=== PATIENT | male | born 1990 | race Caucasian/White ===

== ENCOUNTER 2016-06-19 08:34 | Day surgery (SDC) | payer SELFPAY ==
[~2016-06-19] VITALS: Ht 193 cm; Wt 83.2 kg
[~2016-06-19 08:34] MED LIST: BACT800T5 PO; VENTAER INH
[2016-06-19 08:54] VITALS: BP 126/56; PULSE 60; RESP 20; TEMP 97.5; O2SAT 90
[2016-06-19 09:26] LABS: AUTOMATED NEUTROPHIL # 2.4 TH/MM3 (1.8-7.7); BASOPHIL % 0.7 % (0.0-2.0); EOSINOPHIL # 0.2 TH/MM3 (0-0.4); EOSINOPHIL % 3.5 % (0.0-4.0); HEMATOCRIT 41.9 % (39.0-51.0); HEMO FLAGS DIFF FINAL; LYMPH % 29.8 % (9.0-44.0); LYMPHOCYTE # 1.3 TH/MM3 (1.0-4.8); MEAN CELL VOLUME 89.9 FL (80.0-100.0); MEAN CORPUSCULAR HEMOGLOBIN 31.4 PG (27.0-34.0); MEAN CORPUSCULAR HGB CONC 34.9 % (32.0-36.0); MONO % 11.2 % (0.0-8.0); NEUT % 54.8 % (16.0-70.0); PLATELET COUNT 134 TH/MM3 (150-450); RED BLOOD COUNT 4.66 MIL/MM3 (4.50-5.90); RED CELL DISTRIBUTION WIDTH 13.8 % (11.6-17.2); WHITE BLOOD COUNT 4.3 TH/MM3 (4.0-11.0)
[2016-06-19] MEDS ORDERED: fentaNYL CITRATE 250 MCG/5 ML AMP ONE (09:56)
[2016-06-19] MEDS ORDERED: SODIUM CHLORIDE 0.9% 1000 ML IV SCH (10:00)
--- NOTE | 2016-06-19 10:52 | PD.RAD ---
Post Procedure Progress Note Pre Procedure Diagnosis: (1) Post trauma IVC filter Post Procedure Diagnosis: (1) Post trauma IVC filter Procedure Date: Jun 19, 2016 Supervising Radiologist: Nabor To Proceduralist/Assist: Mckenna Guadalupe, RT(R)(CV), Haylee Palomo RT(R)() Anesthesia: Local, Analgesia Plan of Activity Patient to Unit: ROPU Patient Condition: Good See PACS Report for procedural detail/treatment Vascular-Venous Procedure Procedure 1 Procedure Site: Abdominal Procedure(s): Foreign Body Retrieval, Retrievable IVC Filter Access Access Site(s): Right Jugular Vein Closure Site(s): Right manual pressure Findings: Retrievable IVC filter in place Treament Area: Filter removed. Nabor To MD Jun 19, 2016 10:52
[2016-06-19 10:55] VITALS: BP 151/81; PULSE 56; RESP 20; TEMP 97.7; O2SAT 99
[2016-06-19] MEDS ORDERED: IOHEXOL 350 MG/ML 50 ML BTL (for RAD DIAG) IV ONE (10:55)
[2016-06-19 11:10] VITALS: BP 130/83; PULSE 56; RESP 18; O2SAT 96
[2016-06-19 11:40] VITALS: BP 124/64; PULSE 59; RESP 18; O2SAT 96
[2016-06-19 12:10] VITALS: BP 125/69; PULSE 50; RESP 18; O2SAT 98
[2016-06-19 12:40] VITALS: BP 126/65; PULSE 62; RESP 18; O2SAT 98
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
== END 2016-06-19 13:00 | disposition home or self-care (01) ==
LOC: HROP 08:34 → HRIP 08:35 → HROP 13:00
PROVIDERS: ATTEND Surgery Trauma Surgery
DX: Z45.2 Encounter for adjustment and management of vascular access device (principal); L03.115 Cellulitis of right lower limb; F12.10 Cannabis abuse, uncomplicated
CPT/HCPCS: 37193; 85025; 85610; 85730; C1769; C1773; C1887; J3010; J7030; Q9967

== ENCOUNTER 2016-07-27 13:51 | Emergency (ER) | payer SELFPAY ==
[~2016-07-27] VITALS: Ht 193 cm; Wt 83.0 kg
[2016-07-27 13:52] VITALS: BP 133/78; PULSE 80; RESP 20; TEMP 97.7; O2SAT 97
== END 2016-07-27 18:45 | disposition left against medical advice (07) ==
LOC: NED 13:51
DX: R68.89 Other general symptoms and signs (principal)
CPT/HCPCS: 99281

== ENCOUNTER 2016-12-08 12:07 | Emergency (ER) | payer BC ==
[2016-12-08 12:17] VITALS: BP 142/88; PULSE 84; RESP 16; TEMP 98.4; O2SAT 98
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
== END 2016-12-08 15:32 | disposition home or self-care (01) ==
LOC: NEPK 12:07
DX: M25.551 Pain in right hip (principal); M79.671 Pain in right foot; M21.371 Foot drop, right foot; F90.9 Attention-deficit hyperactivity disorder, unspecified type; F17.200 Nicotine dependence, unspecified, uncomplicated
CPT/HCPCS: 73502; 73630; 99284

== ENCOUNTER 2017-02-18 13:45 | Inpatient (IN) | payer BC, OTHER ==
[~2017-02-18] VITALS: Ht 193 cm; Wt 75.0 kg
[~2017-02-18 13:45] MED LIST changes: -BACT800T5 PO; +METOPROLOL TARTRATE 5 MG/5 ML VIAL IV PUSH ONE; +NORMOSOL R INJ 3,000 ML IV ONE; +PHENYLEPH/NS 1000 MCG/10 ML SYR IV ONE; +PHENYLEPHRINE HCL 10 MG/ML VIAL IV ONE; +PROPOFOL 200 MG/20 ML AMP IV ONE; +ROCURONIUM INJ 50 MG/5 ML SYRINGE IV PUSH ONE; +SODIUM CHLORID 0.9% 500 ML INJ 500 ML IV ONE; +SODIUM CHLORIDE 0.9% 20 ML VIAL IV ONE; +SUCCINYLCHOLINE CHLORIDE 100 MG/5 ML SYRINGE IV PUSH ONE; -VENTAER INH; +ceFAZolin INJ 1,000 MG VIAL IV ONE; +ePHEDrine/NS 25 MG/5 ML SYR IM ONE; +ePHEDrine/NS 25 MG/5 ML SYR IV ONE
[2017-02-18] MEDS ORDERED: DIPHTH/TETANUS/ACEL PERTUSSIS (BOOSTER) 0.5 ML VIAL/PFS IM ONE (13:49)
[2017-02-18] MEDS ORDERED: ceFAZolin 2 GM PREMIX 50 ML ONE (13:49)
[2017-02-18] MEDS ORDERED: ONDANSETRON HCL 4 MG/2 ML VIAL ONE (13:54)
[2017-02-18] MEDS ORDERED: HYDROmorphone HCL PF 1 MG/ML VIAL ONE ×2 (13:54→14:02)
[2017-02-18 14:25] LABS: I-STAT POTASSIUM 3.1 MMOL/L (3.5-4.9); I-STAT SODIUM 145 MMOL/L (138-146)
[2017-02-18 14:27] LABS: AUTOMATED NEUTROPHIL # 14.7 TH/MM3 (1.8-7.7); BASOPHIL # 0.1 TH/MM3 (0-0.2); BASOPHIL % 0.3 % (0.0-2.0); EOSINOPHIL # 0.2 TH/MM3 (0-0.4); EOSINOPHIL % 0.9 % (0.0-4.0); HEMATOCRIT 38.9 % (39.0-51.0); HEMO FLAGS DIFF FINAL; LYMPH % 18.7 % (9.0-44.0); LYMPHOCYTE # 3.7 TH/MM3 (1.0-4.8); MEAN CELL VOLUME 93.4 FL (80.0-100.0); MEAN CORPUSCULAR HEMOGLOBIN 31.5 PG (27.0-34.0); MEAN CORPUSCULAR HGB CONC 33.7 % (32.0-36.0); MONO % 4.9 % (0.0-8.0); NEUT % 75.2 % (16.0-70.0); PLATELET COUNT 196 TH/MM3 (150-450); RED BLOOD COUNT 4.16 MIL/MM3 (4.50-5.90); RED CELL DISTRIBUTION WIDTH 13.1 % (11.6-17.2); WHITE BLOOD COUNT 19.5 TH/MM3 (4.0-11.0)
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
[2017-02-18 14:35] LABS: APTT (PATIENT) 23.8 SEC (24.3-30.1); PROTHROMBIN TIME - PATIENT 11.3 SEC (9.8-11.6)
[2017-02-18] MEDS ORDERED: GENTAMICIN 80 MG PREMIX 100 ML ONE (14:35)
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
[2017-02-18 14:53] LABS: ALCOHOL LESS THAN 3 MG/DL (0-5)
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
[2017-02-18] MEDS ORDERED: DIATRIZOATE MEG 30% 300 ML BOTTLE (for RAD DIAG) URETHRAL ONE (15:22)
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
[2017-02-18] MEDS ORDERED: IOHEXOL 350 MG/ML 10 ML VIAL (for RAD DIAG) IVCONTRAST ONE (15:54)
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
[2017-02-18] MEDS ORDERED: VANCOMYCIN HCL 1000 MG VIAL IV ONE (16:18)
[2017-02-18 16:37] LABS: BLOOD GAS BASE EXCESS -4.9 mmol/L (-2-2); BLOOD GAS CARBOXYHEMOGLOBIN 1.1 % (0-4); BLOOD GAS HCO3 21 mmol/L (22-26); BLOOD GAS METHEMOGLOBIN 1.4 % (0-2); BLOOD GAS O2 HGB SATURATION 97 % (90-100); BLOOD GAS OXYGEN CONTENT 15.3 Vol % (12.0-20.0); BLOOD GAS PCO2 44 mmHg (38-42); BLOOD GAS PO2 259 mmHg (61-120); BLOOD GAS TOTAL HGB 10.8 G/DL (12.0-16.0); CRITICAL VALUE YES; DRAW SITE ART LINE; FIO2 50 %; OXYGEN DEVICE VENTILATOR; STAT YES; TEMP CORR TO 98.6; VENT SETTINGS PCVG/VT550/R12/P5
[2017-02-18] MEDS ORDERED: VANCOMYCIN 1,000 MG/NS 250 ML IV ONE ×2 (17:00)
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
[2017-02-18] MEDS ORDERED: fentaNYL DRIP 250 ML IV PRN (17:45)
[2017-02-18] MEDS ORDERED: GENTAMICIN SULFATE 80 MG/2 ML VIAL ONE (17:51)
[2017-02-18 18:00] LABS: BLOOD GAS BASE EXCESS -3.7 mmol/L (-2-2); BLOOD GAS CARBOXYHEMOGLOBIN 1.5 % (0-4); BLOOD GAS HCO3 22 mmol/L (22-26); BLOOD GAS METHEMOGLOBIN 1.3 % (0-2); BLOOD GAS O2 HGB SATURATION 97 % (90-100); BLOOD GAS OXYGEN CONTENT 14.5 Vol % (12.0-20.0); BLOOD GAS PCO2 44 mmHg (38-42); BLOOD GAS PO2 258 mmHg (61-120); BLOOD GAS TOTAL HGB 10.2 G/DL (12.0-16.0); CRITICAL VALUE NO; FIO2 50 %; OXYGEN DEVICE VENTILATOR; TEMP CORR TO 98.6; VENT SETTINGS PCVG/VT550/R12/P5
[2017-02-18 18:01] LABS: DRAW SITE ART LINE; STAT YES
[2017-02-18] MEDS ORDERED: SODIUM CHLOR 0.9% 1000 ML INJ 1,000 ML IV SCH (18:30)
[2017-02-18] MEDS ORDERED: SODIUM PHOSPHATE INJ 30 MMOL in SODIUM CHLOR 0.9% 250 ML INJ 240 ML IV PRN (18:30)
[2017-02-18] MEDS ORDERED: POTASSIUM PHOSPHATE MONOBASIC 500 MG TAB PO/TUBE PRN (18:30)
[2017-02-18] MEDS ORDERED: POTASSIUM PHOSPHATE INJ 30 MMOL in SODIUM CHLOR 0.9% 250 ML INJ 250 ML IV PRN (18:30)
[2017-02-18] MEDS ORDERED: MAGNESIUM SULFATE INJ 2 GM in SODIUM CHLORIDE 0.9% INJ 96 ML IV PRN (18:30)
[2017-02-18] MEDS ORDERED: SODIUM CHLORIDE 0.9% FLUSH 10 ML FLUSH IV FLUSH PRN ×2 (18:30→21:30)
[2017-02-18] MEDS ORDERED: MAGNESIUM OXIDE 400 MG TAB PO PRN (18:30)
[2017-02-18] MEDS ORDERED: MISCELLANEOUS NURSING INFORMATION XX SCH (18:30)
[2017-02-18] MEDS ORDERED: CHLORHEXIDINE GLUCONATE 2 % 1 PACK (2 CLOTHS) TOP PRN (18:30)
[2017-02-18] MEDS ORDERED: POTASSIUM CHLORIDE 25 MEQ EFFERVESCENT TAB PO PRN (18:30)
[2017-02-18] MEDS ORDERED: BISACODYL 10 MG SUPP RECTAL PRN ×2 (18:30→21:30)
[2017-02-18] MEDS ORDERED: ACETAMINOPHEN 325 MG TAB PO PRN (18:30)
[2017-02-18] MEDS ORDERED: POTASSIUM PHOSPHATE MONOBASIC 500 MG TAB PO PRN (18:30)
[2017-02-18] MEDS ORDERED: POTASSIUM CHLOR 20 MEQ PREMIX 100 ML IV PRN ×2 (18:30)
[2017-02-18] MEDS ORDERED: ENALAPRILAT 1.25 MG/ML VIAL IV PUSH PRN (18:30)
[2017-02-18] MEDS ORDERED: MAGNESIUM SULFATE INJ 4 GM in SODIUM CHLORIDE 0.9% INJ 92 ML IV PRN (18:30)
[2017-02-18] MEDS ORDERED: POTASSIUM CHLOR 40 MEQ PREMIX 100 ML IV PRN ×2 (18:30)
[2017-02-18] MEDS ORDERED: CHLORHEXIDINE 0.12% (ORAL KIT) 15 ML CUP MT SCH (20:00)
[2017-02-18] MEDS ORDERED: fentaNYL CITRATE 1000 MCG/20 ML VIAL ONE (20:19)
[2017-02-18] MEDS ORDERED: VECURONIUM BROMIDE 20 MG VIAL ONE (20:28)
[2017-02-18 20:33] LABS: BLOOD GAS BASE EXCESS -6.2 mmol/L (-2-2); BLOOD GAS CARBOXYHEMOGLOBIN 1.2 % (0-4); BLOOD GAS HCO3 19 mmol/L (22-26); BLOOD GAS METHEMOGLOBIN 1.1 % (0-2); BLOOD GAS O2 HGB SATURATION 97 % (90-100); BLOOD GAS PCO2 41 mmHg (38-42); BLOOD GAS PO2 278 mmHg (61-120); BLOOD GAS TOTAL HGB 10.4 G/DL (12.0-16.0); TEMP CORR TO 98.6
[2017-02-18 20:34] LABS: CRITICAL VALUE YES; FIO2 100 %; OXYGEN DEVICE OR SETTING; VENT SETTINGS OR SETTING
[2017-02-18 20:35] LABS: DRAW SITE ART LINE; STAT YES
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
[2017-02-18] MEDS: BACITRACIN TOP OINT 15 GM TUBE TOP SCH (21:00)
[2017-02-18] MEDS ORDERED: DOCUSATE SODIUM 50 MG/SENNA 8.6 MG TAB PO SCH (21:00)
[2017-02-18] MEDS: FAMOTIDINE 20 MG/2 ML VIAL IV PUSH SCH (21:00)
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
[2017-02-18] MEDS ORDERED: LACTULOSE SYRUP 20 GM/30 ML CUP PO PRN (21:30)
[2017-02-18] MEDS ORDERED: Post-op Orders (for Pharmacy) MISC XX ONE (21:30)
[2017-02-18] MEDS ORDERED: SENNOSIDES 8.6 MG TAB PO PRN (21:30)
[2017-02-18] MEDS ORDERED: MAGNESIUM HYDROXIDE SUSP 30 ML CUP PO PRN (21:30)
[2017-02-18] MEDS ORDERED: POVIDONE IODINE 10% SOLN 118 ML BOTTLE TOPICAL PRN (21:30)
[2017-02-18 21:45] VITALS: BP 113/57; PULSE 130; RESP 18; TEMP 98.1; O2SAT 100
[2017-02-18 21:50] VITALS: O2SAT 100
[2017-02-18 22:00] VITALS: PULSE 108
[2017-02-18] MEDS: PROPOFOL 1000 MG/100 ML INJ 100 ML IV PRN (22:00)
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
[2017-02-18 22:39] LABS: BLOOD GAS BASE EXCESS -3.6 mmol/L (-2-2); BLOOD GAS CARBOXYHEMOGLOBIN 1.7 % (0-4); BLOOD GAS HCO3 21 mmol/L (22-26); BLOOD GAS METHEMOGLOBIN 0.8 % (0-2); BLOOD GAS O2 HGB SATURATION 98 % (90-100); BLOOD GAS OXYGEN CONTENT 11.5 Vol % (12.0-20.0); BLOOD GAS PCO2 40 mmHg (38-42); BLOOD GAS PO2 243 mmHg (61-120); BLOOD GAS TOTAL HGB 7.9 G/DL (12.0-16.0); CRITICAL VALUE NO; DRAW SITE ART LINE; FIO2 50 %; OXYGEN DEVICE VENTILATOR; STAT YES; TEMP CORR TO 98.6; VENT SETTINGS V/AC18/600/PEEP5
[2017-02-18] MEDS ORDERED: LACTATED RINGER'S 1000 ML INJ 1,000 ML IV ONE (22:45)
[2017-02-18 22:57] LABS: AUTOMATED NEUTROPHIL # 8.7 TH/MM3 (1.8-7.7); BASOPHIL % 0.2 % (0.0-2.0); HEMATOCRIT 24.8 % (39.0-51.0); LYMPH % 5.2 % (9.0-44.0); LYMPHOCYTE # 0.5 TH/MM3 (1.0-4.8); MEAN CELL VOLUME 87.5 FL (80.0-100.0); MEAN CORPUSCULAR HEMOGLOBIN 30.2 PG (27.0-34.0); MEAN CORPUSCULAR HGB CONC 34.5 % (32.0-36.0); MONO % 10.7 % (0.0-8.0); NEUT % 83.9 % (16.0-70.0); PLATELET COUNT 82 TH/MM3 (150-450); RED BLOOD COUNT 2.83 MIL/MM3 (4.50-5.90); RED CELL DISTRIBUTION WIDTH 15.5 % (11.6-17.2); WHITE BLOOD COUNT 10.3 TH/MM3 (4.0-11.0)
[2017-02-18 22:58] LABS: HEMO FLAGS AUTO DIFF
[2017-02-18] MEDS ORDERED: CALCIUM GLUCONATE INJ 2 GM in SODIUM CHLORIDE 0.9% INJ 100 ML IV ONE (23:00)
[2017-02-18] MEDS: ceFAZolin 2 GM PREMIX 50 ML IV SCH (23:05)
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
[2017-02-18] MEDS: GENTAMICIN 80 MG PREMIX 100 ML IV SCH (23:07)
--- NOTE | 2017-02-18 23:07 | RADRPT ---
EXAM DATE/TIME: 02/18/2017 22:38 [facility] COMPARISON: CHEST SINGLE AP, February 18, 2017, 13:46. INDICATIONS : Evaluate intubation MEDICAL HISTORY : None. SURGICAL HISTORY : None. ENCOUNTER: Subsequent ACUITY: 1 day PAIN SCORE: Non-responsive. LOCATION: chest FINDINGS: The cardiac silhouette is normal in transverse diameter. The lungs are free of acute parenchymal opac ity. No effusions are identified. Endotracheal tube is in good position above the germaine. A nasogastr ic tube is in place with its tip in the stomach. CONCLUSION: 1. Satisfactory position of endotracheal tube as above. Alejo Hooper MD on February 18, 2017 at 23:05 Board Certified Radiologist. This report was verified electronically.
[2017-02-18 23:22] LABS: BICARBONATE 23.7 MEQ/L (21.0-32.0); MAGNESIUM 1.8 MG/DL (1.5-2.5); POTASSIUM 4.2 MEQ/L (3.5-5.1)
[2017-02-18 23:29] LABS: BANDS 19 % (0-6); METAMYELOCYTES 2 % (0-1); NEUTROPHIL # MANUAL DIFF 8.7 TH/MM3 (1.8-7.7); POLYS (SEG NEUTROPHILS) 63 % (16-70); SCAN/DIFF FINAL DIFF MANUAL; WBC DIFF SAMPLE 100
[2017-02-18 23:30] LABS: PLATELET ESTIMATE SMEAR LOW (NORMAL); PLATELET MORPHOLOGY NORMAL (NORMAL)
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
--- NOTE | 2017-02-18 23:33 | RADRPT ---
EXAM DATE/TIME: 02/18/2017 23:10 [facility] COMPARISON: WRIST LEFT LIMITED (AP & LAT), February 18, 2017, 23:04. INDICATIONS : Evaluate for fracture post trauma[place] [place]ORY : Unobtainable SURGICAL HISTORY : Unobtainable ENCOUNTER: Initial ACUITY: 1 day PAIN SCORE: Non-responsive. LOCATION: Left Hand FINDINGS: There are fractures at the base of the third and fifth metacarpals. On the lateral view there is also a fracture through the carpus which may be through the hamate. CT scan is recommended for further ev aluation if clinically indicated. Fracture of the distal radius and ulnar styloid again identified CONCLUSION: 1. Fractures of the third and fifth metacarpals. 2. Carpal fracture best seen on the lateral view. CT scan is recommended for further evaluation if cl inically indicated. Alejo Hooper MD on February 18, 2017 at 23:29 Board Certified Radiologist. This report was verified electronically.
[2017-02-18 23:46] LABS: CALCIUM-PROTEIN CORRECTED 7.9 MG/DL (8.5-10.1)
[2017-02-18 23:57] VITALS: O2SAT 100
[2017-02-19] VITALS (22 sets, daily range): BP systolic 96–150; BP diastolic 50–82; PULSE 64–123; RESP 12–33; TEMP 97.4–99.5; O2SAT 96–100
[2017-02-19] MEDS: MIDAZOLAM HCL 2 MG/2 ML VIAL IV PUSH PRN ×2 (00:27→02:18)
[2017-02-19] MEDS: LACTATED RINGER'S 1000 ML INJ 1,000 ML IV SCH ×3 (00:31→16:12)
[2017-02-19] MEDS ORDERED: NOREPINEPHRINE-DEXTROSE DRIP 250 ML IV ONE (00:38)
[2017-02-19] MEDS ORDERED: PHENYLEPHRINE HCL 10 MG/ML VIAL ONE (01:35)
[2017-02-19] MEDS ORDERED: HYDROmorphone HCL PF 1 MG/ML VIAL IV PUSH PRN ×2 (01:45)
[2017-02-19] MEDS ORDERED: TERBUTALINE INJ 1 MG/ML AMP SQ PRN (01:45)
[2017-02-19 01:50] LABS: MAGNESIUM 1.8 MG/DL (1.5-2.5)
[2017-02-19] MEDS: PHENYLEPHRINE INJ 40 MG in DEXTROSE 5% IN WATE 500 ML INJ 496 ML IV PRN ×4 (03:02→07:40)
[2017-02-19] MEDS: RESP: ALBUTEROL 2.5 MG/IPRATROPIUM 0.5 MG NEB (SCH) NEB ×4 (03:22→21:32)
[2017-02-19] MEDS: CHLORHEXIDINE GLUCONATE 2 % 1 PACK (2 CLOTHS) TOP SCH ×2 (04:00→21:26)
--- NOTE | 2017-02-19 04:06 | RADRPT ---
EXAM DATE/TIME: 02/19/2017 03:14 [facility] COMPARISON: CHEST SINGLE AP, February 18, 2017, 22:38. INDICATIONS : Picc line placement. MEDICAL HISTORY : Unobtainable. SURGICAL HISTORY : Unobtainable. ENCOUNTER: Initial ACUITY: 1 day PAIN SCORE: Non-responsive. LOCATION: Bilateral chest FINDINGS: The cardiac silhouette is normal in transverse diameter. The lungs are free of acute parenchymal opac ity. No effusions are identified. A right sided internal jugular vein catheter is in place without pn eumothorax with its tip in the superior vena cava. CONCLUSION: 1. Uncomplicated line placement. No evidence of pneumothorax. Alejo Hooper MD on February 19, 2017 at 4:04 Board Certified Radiologist. This report was verified electronically.
[2017-02-19 04:07] LABS: BLOOD GAS BASE EXCESS -2.1 mmol/L (-2-2); BLOOD GAS CARBOXYHEMOGLOBIN 1.2 % (0-4); BLOOD GAS HCO3 23 mmol/L (22-26); BLOOD GAS METHEMOGLOBIN 0.7 % (0-2); BLOOD GAS O2 HGB SATURATION 98 % (90-100); BLOOD GAS OXYGEN CONTENT 12.2 Vol % (12.0-20.0); BLOOD GAS PCO2 49 mmHg (38-42); BLOOD GAS PO2 253 mmHg (61-120); BLOOD GAS TOTAL HGB 8.4 G/DL (12.0-16.0); CRITICAL VALUE NO; TEMP CORR TO 98.6
[2017-02-19 04:08] LABS: DRAW SITE ART LINE; FIO2 50 %; OXYGEN DEVICE VENTILATOR; STAT NO
[2017-02-19] MEDS: PROPOFOL 1000 MG/100 ML INJ 100 ML IV PRN (04:30)
[2017-02-19 04:44] LABS: AUTOMATED NEUTROPHIL # 9.2 TH/MM3 (1.8-7.7); BASOPHIL % 0.1 % (0.0-2.0); HEMATOCRIT 23.5 % (39.0-51.0); LYMPHOCYTE # 1.3 TH/MM3 (1.0-4.8); MEAN CELL VOLUME 86.9 FL (80.0-100.0); MEAN CORPUSCULAR HEMOGLOBIN 30.4 PG (27.0-34.0); MONO % 16.6 % (0.0-8.0); NEUT % 73.3 % (16.0-70.0); PLATELET COUNT 85 TH/MM3 (150-450); RED BLOOD COUNT 2.71 MIL/MM3 (4.50-5.90); RED CELL DISTRIBUTION WIDTH 15.5 % (11.6-17.2); WHITE BLOOD COUNT 12.5 TH/MM3 (4.0-11.0)
[2017-02-19 04:47] LABS: HEMO FLAGS AUTO DIFF
[2017-02-19 04:54] LABS: APTT (PATIENT) 35.5 SEC (24.3-30.1)
--- NOTE | 2017-02-19 04:55 | PD.PROCEDR ---
Procedure Note Procedure DATE: 02/19/17 CENTRAL LINE PLACEMENT: Right internal jugular vein. INDICATION: Central venous access CONSENT Informed consent for procedure was obtained from patient's father after discussion of risks, benefits, alternatives. DESCRIPTION OF THE PROCEDURE The patient was placed in supine position, mild Trendelenburg. The skin was cleansed with Chloraprep x3. Additional barrier precautions included large sterile drape, sterile gloves, sterile gown, face mask, and hat. 1 % lidocaine was used for local anesthesia. Initial attempt at R subclavian with u/s guidance unsuccessful. Under direct ultrasound guidance and on single attempt, the right IJ vein was accessed with an introducer needle. The guide wire was advanced and the tract was dilated. Using Seldinger technique a 7 Greenlandic 20 cm antimicrobial coated triple-lumen catheter was advanced to a depth of 18 centimeters. The guide wire was removed. All ports had good return of dark venous blood and flushed easily with saline. The central line was secured with Stat-lock. A sterile dressing with antibiotic disc was applied. ESTIMATED BLOOD LOSS: Minimal COMPLICATIONS: No apparent complications. STAT chest x-ray demonstrated satisfactory central venous line position without apparent complication Tanesha Lynch MD Feb 19, 2017 04:55
[2017-02-19 05:26] LABS: BICARBONATE 25.9 MEQ/L (21.0-32.0); POTASSIUM 4.6 MEQ/L (3.5-5.1)
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
[2017-02-19] MEDS: ceFAZolin 2 GM PREMIX 50 ML IV SCH ×3 (06:03→21:52)
[2017-02-19 06:19] LABS: BANDS 17 % (0-6); NEUTROPHIL # MANUAL DIFF 9.8 TH/MM3 (1.8-7.7); POLYS (SEG NEUTROPHILS) 61 % (16-70); WBC DIFF SAMPLE 100
[2017-02-19 06:20] LABS: PLATELET ESTIMATE SMEAR LOW (NORMAL); PLATELET MORPHOLOGY NORMAL (NORMAL); SCAN/DIFF FINAL DIFF MANUAL
[2017-02-19 06:24] LABS: OVALOCYTES 1+ (NORMAL)
[2017-02-19 07:04] LABS: CALCIUM-PROTEIN CORRECTED 8.4 MG/DL (8.5-10.1)
[2017-02-19] MEDS ORDERED: SODIUM CHLOR 0.9% 250 ML INJ 250 ML IV ONE ×2 (07:15→19:00)
[2017-02-19 07:38] LABS: BACTERIA, URINE RARE /hpf; BLOOD, URINE SMALL (NEG); COMMENT (UR) CATH-CULTURE IND; CULTURE IF INDICATED CATH CULTURE IND; GLUCOSE,URINE NEG (NEG); HYALINE CAST, URINE 1 /lpf (RARE); KETONE, URINE NEG (NEG); MUCUS URINE FEW /lpf (OCC); NITRITE,URINE NEG (NEG); PH, URINE 5.5 (5.0-8.5); SQUAMOUS EPITHELIAL CELL URINE <1 /hpf (0-5); URINE COLOR YELLOW (YELLW/STRAW)
[2017-02-19] MEDS: GENTAMICIN 80 MG PREMIX 100 ML IV SCH ×3 (07:39→23:57)
[2017-02-19] MEDS ORDERED: CHLORHEXIDINE 0.12% (ORAL KIT) 15 ML CUP MT SCH (08:00)
[2017-02-19] MEDS: FAMOTIDINE 20 MG/2 ML VIAL IV PUSH SCH ×2 (08:03→20:01)
[2017-02-19] MEDS: DOCUSATE SODIUM 50 MG/SENNA 8.6 MG TAB PO SCH ×2 (08:04→20:01)
[2017-02-19] MEDS: BACITRACIN TOP OINT 15 GM TUBE TOP SCH ×2 (08:04→20:01)
[2017-02-19] MEDS: MULTIVITAMINS/MINERALS THERAPEUTIC TAB PO SCH (08:04)
[2017-02-19] MEDS: SODIUM CHLORIDE 0.9% FLUSH 10 ML FLUSH IV FLUSH SCH ×2 (08:04→20:01)
--- NOTE | 2017-02-19 08:59 | RADRPT ---
EXAM DATE/TIME: 02/18/2017 18:33 [facility] COMPARISON: FEMUR RIGHT (1 VW), February 18, 2017, 13:46. INDICATIONS : Right femur open reduction internal fixation. MEDICAL HISTORY : Unobtainable. SURGICAL HISTORY : Unobtainable. ENCOUNTER: Initial ACUITY: 1 day PAIN SCORE: Non-responsive. LOCATION: Right femur. FINDINGS: 6 spot fluoroscopic images up in the operating room during a procedure documents placement of an ante grade intramedullary belinda with a proximal femoral head and neck screw and 2 distal interlocking screws . The hardware traverses the comminuted diaphyseal fracture. There is improved anatomic alignment. Henriquez rgical drain is present and skin jovan are in place. CONCLUSION: Improved alignment following right femur ORIF. Samuel Munoz MD on February 19, 2017 at 8:56 Board Certified Radiologist. This report was verified electronically.
--- NOTE | 2017-02-19 08:59 | RADRPT ---
EXAM DATE/TIME: 02/18/2017 18:33 [facility] COMPARISON: No previous studies available for comparison. INDICATIONS : Left elbow ex-fix. MEDICAL HISTORY : Unobtainable. SURGICAL HISTORY : Unobtainable. ENCOUNTER: Initial ACUITY: 1 day PAIN SCORE: Non-responsive. LOCATION: Left elbow FINDINGS: There is continued distraction across the medial condyle. Alignment about the olecranon is anatomic external fixator. CONCLUSION: Alignment as above. Yoel Harding MD FACR on February 19, 2017 at 8:54 Board Certified Radiologist. This report was verified electronically.
[2017-02-19] MEDS ORDERED: LACTULOSE SYRUP 20 GM/30 ML CUP PO SCH (09:00)
[2017-02-19] MEDS ORDERED: oxyCODONE/ACETAMINOPHEN 5 MG/325 MG TAB PO PRN (09:30)
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
[2017-02-19] MEDS: ENOXAPARIN SODIUM 30 MG/0.3 ML SYRINGE SQ SCH ×2 (12:25→23:57)
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
[2017-02-19] MEDS: oxyCODONE/ACETAMINOPHEN 10 MG/325 MG TAB PO PRN ×3 (15:33→23:58)
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
[2017-02-19] MEDS: MORPHINE SULFATE 4 MG/ML INJ IV PUSH PRN ×2 (17:12→21:53)
--- NOTE | 2017-02-19 17:20 | RADRPT ---
EXAM DATE/TIME: 02/19/2017 16:34 [facility] COMPARISON: No previous studies available for comparison. INDICATIONS : Trauma alert. MEDICAL HISTORY : None. SURGICAL HISTORY : None. ENCOUNTER: Subsequent ACUITY: 1 day PAIN SCORE: 4/10 LOCATION: Right Hand. FINDINGS: Three view examination of the right hand demonstrates no soft tissue swelling, dislocation, or fractu re. The carpal bones appear intact. The interphalangeal and metacarpophalangeal joints are intact. Bony mineralization is normal. CONCLUSION: Marked soft tissue swelling without fracture. Yoel Harding MD FACR on February 19, 2017 at 17:17 Board Certified Radiologist. This report was verified electronically.
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
[2017-02-19 18:39] LABS: MEAN CELL VOLUME 86.3 FL (80.0-100.0); MEAN CORPUSCULAR HEMOGLOBIN 30.6 PG (27.0-34.0); MEAN CORPUSCULAR HGB CONC 35.5 % (32.0-36.0); PLATELET COUNT 63 TH/MM3 (150-450); RED CELL DISTRIBUTION WIDTH 15.9 % (11.6-17.2); WHITE BLOOD COUNT 11.3 TH/MM3 (4.0-11.0)
[2017-02-19] MEDS: ONDANSETRON HCL 4 MG/2 ML VIAL IV PUSH PRN ×2 (18:41→21:53)
[2017-02-19 18:43] LABS: REVIEW FLAG FINAL
[2017-02-19 18:46] LABS: HEMATOCRIT 17.2 % (39.0-51.0)
[2017-02-20] VITALS (13 sets, daily range): BP systolic 116–149; BP diastolic 58–81; PULSE 85–103; RESP 17–30; TEMP 97.4–98.9; O2SAT 96–100
[2017-02-20] MEDS ORDERED: fentaNYL 50 MCG/HR PATCH T-DERMAL SCH
[2017-02-20] MEDS: LACTATED RINGER'S 1000 ML INJ 1,000 ML IV SCH (00:03)
[2017-02-20] MEDS: MORPHINE SULFATE 4 MG/ML INJ IV PUSH PRN ×7 (00:54→22:27)
[2017-02-20] MEDS: RESP: ALBUTEROL 2.5 MG/IPRATROPIUM 0.5 MG NEB (SCH) NEB ×4 (03:55→20:21)
[2017-02-20] MEDS: oxyCODONE/ACETAMINOPHEN 10 MG/325 MG TAB PO PRN ×4 (04:00→18:45)
[2017-02-20 04:54] LABS: BICARBONATE 26.7 MEQ/L (21.0-32.0)
[2017-02-20 04:59] LABS: AUTOMATED NEUTROPHIL # 6.7 TH/MM3 (1.8-7.7); BASOPHIL % 0.2 % (0.0-2.0); EOSINOPHIL # 0.1 TH/MM3 (0-0.4); EOSINOPHIL % 0.9 % (0.0-4.0); HEMATOCRIT 22.9 % (39.0-51.0); LYMPHOCYTE # 1.7 TH/MM3 (1.0-4.8); MEAN CELL VOLUME 86.7 FL (80.0-100.0); MEAN CORPUSCULAR HEMOGLOBIN 30.8 PG (27.0-34.0); MEAN CORPUSCULAR HGB CONC 35.5 % (32.0-36.0); MONO % 10.6 % (0.0-8.0); NEUT % 70.3 % (16.0-70.0); PLATELET COUNT 48 TH/MM3 (150-450); RED BLOOD COUNT 2.64 MIL/MM3 (4.50-5.90); RED CELL DISTRIBUTION WIDTH 14.6 % (11.6-17.2); WHITE BLOOD COUNT 9.6 TH/MM3 (4.0-11.0)
[2017-02-20 05:07] LABS: CALCIUM-PROTEIN CORRECTED 8.9 MG/DL (8.5-10.1)
[2017-02-20 05:22] LABS: INTERNATIONAL NORMALIZED RATIO 1.1 RATIO; PROTHROMBIN TIME - PATIENT 12.7 SEC (9.8-11.6)
[2017-02-20 05:33] LABS: HEMO FLAGS AUTO DIFF
[2017-02-20] MEDS: ceFAZolin 2 GM PREMIX 50 ML IV SCH ×2 (05:33→14:14)
[2017-02-20] MEDS: GENTAMICIN 80 MG PREMIX 100 ML IV SCH ×2 (05:34→14:14)
[2017-02-20] MEDS: FAMOTIDINE 20 MG/2 ML VIAL IV PUSH SCH (08:08)
[2017-02-20] MEDS: MULTIVITAMINS/MINERALS THERAPEUTIC TAB PO SCH (08:08)
[2017-02-20] MEDS: SODIUM CHLORIDE 0.9% FLUSH 10 ML FLUSH IV FLUSH SCH ×2 (08:09→19:39)
[2017-02-20] MEDS: DOCUSATE SODIUM 50 MG/SENNA 8.6 MG TAB PO SCH ×2 (08:21→19:40)
[2017-02-20 08:48] LABS: BANDS 9 % (0-6); EOSINOPHILS 1 % (0-4); POLYS (SEG NEUTROPHILS) 64 % (16-70); WBC DIFF SAMPLE 100
[2017-02-20 08:49] LABS: PLATELET ESTIMATE SMEAR LOW (NORMAL); PLATELET MORPHOLOGY NORMAL (NORMAL); SCAN/DIFF FINAL DIFF MANUAL
[2017-02-20] MEDS: BACITRACIN TOP OINT 15 GM TUBE TOP SCH ×2 (09:00→19:40)
[2017-02-20] MEDS ORDERED: oxyCODONE/ACETAMINOPHEN 5 MG/325 MG TAB PO PRN (10:15)
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
[2017-02-20] MEDS: KETOROLAC TROMETHAMINE 30 MG/ML (IVP) VIAL IV PUSH SCH ×2 (12:25→18:00)
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
[2017-02-20] MEDS: ONDANSETRON HCL 4 MG/2 ML VIAL IV PUSH PRN ×2 (16:24→23:10)
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
[2017-02-20] MEDS: FAMOTIDINE 20 MG TAB PO SCH (19:40)
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
[2017-02-21] VITALS (12 sets, daily range): BP systolic 107–136; BP diastolic 53–70; PULSE 92–108; RESP 17–18; TEMP 97–99; O2SAT 95–100
[2017-02-21] MEDS: ceFAZolin 2 GM PREMIX 50 ML IV SCH ×4 (00:27→21:49)
[2017-02-21] MEDS: oxyCODONE/ACETAMINOPHEN 10 MG/325 MG TAB PO PRN ×3 (00:27→08:45)
[2017-02-21] MEDS: KETOROLAC TROMETHAMINE 30 MG/ML (IVP) VIAL IV PUSH SCH ×2 (00:27→04:49)
[2017-02-21] MEDS: GENTAMICIN 80 MG PREMIX 100 ML IV SCH ×3 (00:27→15:00)
[2017-02-21] MEDS: MORPHINE SULFATE 4 MG/ML INJ IV PUSH PRN (01:55)
[2017-02-21] MEDS: diphenhydrAMINE HCL 25 MG CAP PO PRN ×2 (01:55→21:47)
[2017-02-21] MEDS: CHLORHEXIDINE GLUCONATE 2 % 1 PACK (2 CLOTHS) TOP SCH (02:08)
[2017-02-21] MEDS: RESP: ALBUTEROL 2.5 MG/IPRATROPIUM 0.5 MG NEB (SCH) NEB ×4 (03:09→21:07)
[2017-02-21 05:35] LABS: AUTOMATED NEUTROPHIL # 4.4 TH/MM3 (1.8-7.7); BASOPHIL % 0.2 % (0.0-2.0); EOSINOPHIL # 0.1 TH/MM3 (0-0.4); EOSINOPHIL % 1.2 % (0.0-4.0); LYMPH % 15.9 % (9.0-44.0); MEAN CELL VOLUME 86.9 FL (80.0-100.0); MEAN CORPUSCULAR HGB CONC 35.7 % (32.0-36.0); MONO % 10.1 % (0.0-8.0); NEUT % 72.6 % (16.0-70.0); PLATELET COUNT 54 TH/MM3 (150-450); RED BLOOD COUNT 2.11 MIL/MM3 (4.50-5.90); RED CELL DISTRIBUTION WIDTH 14.8 % (11.6-17.2); WHITE BLOOD COUNT 6.1 TH/MM3 (4.0-11.0)
[2017-02-21 05:41] LABS: HEMO FLAGS DIFF FINAL
[2017-02-21 05:42] LABS: HEMATOCRIT 18.3 % (39.0-51.0)
[2017-02-21 06:54] LABS: POTASSIUM 3.8 MEQ/L (3.5-5.1)
[2017-02-21] MEDS: FAMOTIDINE 20 MG TAB PO SCH ×2 (08:44→21:50)
[2017-02-21] MEDS: MAGNESIUM HYDROXIDE SUSP 30 ML CUP PO SCH ×2 (08:44→21:49)
[2017-02-21] MEDS: LACTULOSE SYRUP 20 GM/30 ML CUP PO SCH ×2 (08:44→09:00)
[2017-02-21] MEDS: DOCUSATE SODIUM 50 MG/SENNA 8.6 MG TAB PO SCH ×2 (08:44→21:50)
[2017-02-21] MEDS: MULTIVITAMINS/MINERALS THERAPEUTIC TAB PO SCH (08:44)
[2017-02-21] MEDS: SODIUM CHLORIDE 0.9% FLUSH 10 ML FLUSH IV FLUSH SCH ×2 (08:45→21:00)
[2017-02-21] MEDS: BACITRACIN TOP OINT 15 GM TUBE TOP SCH ×2 (09:00→21:00)
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
[2017-02-21] MEDS: ONDANSETRON HCL 4 MG/2 ML VIAL IV PUSH PRN ×2 (09:06→16:53)
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
[2017-02-21] MEDS: ACETAMINOPHEN 1000 MG/100 ML 100 ML IV SCH ×2 (12:02→16:41)
[2017-02-21 13:10] LABS: HEPARIN AB OD 0.043 O.D. (0.000-0.300); HEPARIN INDUCED PLATELET AB NEGATIVE (NEGATIVE)
[2017-02-21] MEDS: fentaNYL 75 MCG/HR PATCH T-DERMAL SCH (13:40)
[2017-02-22 00:17] VITALS: BP 123/64; PULSE 104; RESP 18; TEMP 96.4; O2SAT 100
[2017-02-22] MEDS: ACETAMINOPHEN 1000 MG/100 ML 100 ML IV SCH ×3 (00:24→11:30)
[2017-02-22] MEDS: GENTAMICIN 80 MG PREMIX 100 ML IV SCH ×3 (00:24→17:18)
[2017-02-22] MEDS: RESP: ALBUTEROL 2.5 MG/IPRATROPIUM 0.5 MG NEB (SCH) NEB ×3 (03:28→15:04)
[2017-02-22 04:28] VITALS: BP 114/63; PULSE 99; RESP 18; TEMP 98.5; O2SAT 100
[2017-02-22] MEDS: ceFAZolin 2 GM PREMIX 50 ML IV SCH ×3 (06:04→23:22)
[2017-02-22 06:52] LABS: AUTOMATED NEUTROPHIL # 3.5 TH/MM3 (1.8-7.7); BASOPHIL % 0.3 % (0.0-2.0); EOSINOPHIL # 0.1 TH/MM3 (0-0.4); EOSINOPHIL % 1.4 % (0.0-4.0); HEMATOCRIT 21.2 % (39.0-51.0); LYMPH % 23.4 % (9.0-44.0); LYMPHOCYTE # 1.3 TH/MM3 (1.0-4.8); MEAN CORPUSCULAR HGB CONC 34.9 % (32.0-36.0); MONO % 10.5 % (0.0-8.0); NEUT % 64.4 % (16.0-70.0); PLATELET COUNT 78 TH/MM3 (150-450); RED BLOOD COUNT 2.46 MIL/MM3 (4.50-5.90); RED CELL DISTRIBUTION WIDTH 15.5 % (11.6-17.2); WHITE BLOOD COUNT 5.5 TH/MM3 (4.0-11.0)
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
[2017-02-22] MEDS ORDERED: ceFAZolin INJ 1,000 MG VIAL ONE (07:02)
[2017-02-22] MEDS ORDERED: GENTAMICIN SULFATE 80 MG/2 ML VIAL ONE (07:02)
[2017-02-22] MEDS ORDERED: HYDROmorphone HCL PF 2 MG/ML VIAL ONE (07:02)
[2017-02-22 07:03] LABS: ALT (GPT) 19 U/L (12-78); ANION GAP 6 MEQ/L (5-15); AST (GOT) 33 U/L (15-37); BICARBONATE 29.1 MEQ/L (21.0-32.0); BLOOD UREA NITROGEN 8 MG/DL (7-18); CHLORIDE 104 MEQ/L (98-107); GLOMERULAR FILTRATION RATE 229 ML/MIN (>89); POTASSIUM 3.5 MEQ/L (3.5-5.1); SODIUM (NA) 139 MEQ/L (136-145)
[2017-02-22 07:04] LABS: HEMO FLAGS AUTO DIFF
[2017-02-22 07:05] LABS: ALKALINE PHOSPHATASE 58 U/L (45-117); TOTAL BILIRUBIN ADULT 0.5 MG/DL (0.2-1.0)
[2017-02-22 07:41] LABS: PLATELET ESTIMATE SMEAR LOW (NORMAL); PLATELET MORPHOLOGY NORMAL (NORMAL); SCAN/DIFF AUTO DIFF CONFIRMED
[2017-02-22] MEDS ORDERED: BISACODYL 10 MG SUPP RECTAL ONE (08:15)
[2017-02-22] MEDS ORDERED: BISACODYL EC 5 MG TABEC PO ONE (08:15)
[2017-02-22] MEDS: MULTIVITAMINS/MINERALS THERAPEUTIC TAB PO SCH (09:00)
[2017-02-22] MEDS: DOCUSATE SODIUM 50 MG/SENNA 8.6 MG TAB PO SCH ×2 (09:00→22:00)
[2017-02-22] MEDS: SODIUM CHLORIDE 0.9% FLUSH 10 ML FLUSH IV FLUSH SCH ×2 (09:00→22:00)
[2017-02-22] MEDS: MAGNESIUM HYDROXIDE SUSP 30 ML CUP PO SCH ×2 (09:00→21:59)
[2017-02-22] MEDS: BACITRACIN TOP OINT 15 GM TUBE TOP SCH ×2 (09:00→22:13)
[2017-02-22] MEDS: LACTULOSE SYRUP 20 GM/30 ML CUP PO SCH (09:00)
[2017-02-22] MEDS: FAMOTIDINE 20 MG TAB PO SCH ×2 (09:00→22:00)
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
[2017-02-22] MEDS ORDERED: SODIUM CHLOR 0.9% 250 ML INJ 250 ML IV ONE (12:00)
[2017-02-22] MEDS ORDERED: NEOSTIGMINE 3 MG/3 ML SYR IV ONE (12:00)
[2017-02-22] MEDS ORDERED: ePHEDrine/NS 25 MG/5 ML SYR IV ONE (12:00)
[2017-02-22] MEDS ORDERED: GLYCOPYRROLATE 1 MG/5 ML SYRINGE IV PUSH ONE (12:00)
[2017-02-22] MEDS ORDERED: ONDANSETRON HCL 4 MG/2 ML VIAL IV PUSH ONE (12:00)
[2017-02-22] MEDS ORDERED: MIDAZOLAM HCL 2 MG/2 ML VIAL IV ONE (12:00)
[2017-02-22] MEDS ORDERED: ROCURONIUM INJ 50 MG/5 ML SYRINGE IV PUSH ONE (12:00)
[2017-02-22] MEDS ORDERED: Post-op Orders (for Pharmacy) MISC XX ONE (12:00)
[2017-02-22] MEDS ORDERED: LIDOCAINE HCL 1% PF 5 ML SYRINGE OTHER ONE (12:00)
[2017-02-22] MEDS ORDERED: PROPOFOL 200 MG/20 ML AMP IV ONE (12:00)
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
[2017-02-22] MEDS ORDERED: DO NOT ADM ANY ANTICOAGULANT DRUGS PRN (12:33)
--- NOTE | 2017-02-22 12:54 | RADRPT ---
EXAM DATE/TIME: 02/22/2017 11:05 [facility] COMPARISON: No previous studies available for comparison. INDICATIONS : Left distal humerus and proximal ulna repair. OR. MEDICAL HISTORY : None. SURGICAL HISTORY : None. ENCOUNTER: Subsequent ACUITY: 4 - 6 days PAIN SCORE: Non-responsive. LOCATION: Left elbow FINDINGS: Multiple spot films reveal plate and screw fixation across comminuted fracture of distal humerus frac ture and plate and screw fixation of the proximal ulna. No complications identified. CONCLUSION: 1. Fixation distal left humerus and proximal ulna as above. Deandre Weber MD on February 22, 2017 at 12:51 Board Certified Radiologist. This report was verified electronically.
[2017-02-22] MEDS ORDERED: *ONDANSETRON 4 MG VIAL PERIprocedural Use ONLY ONE (12:56)
[2017-02-22] MEDS ORDERED: *MEPERIDINE 25 MG INJ VIAL PERIprocedural Use ONLY ONE (12:56)
[2017-02-22 15:07] VITALS: O2SAT 98
[2017-02-22 16:00] VITALS: BP 131/68; PULSE 94; RESP 18; TEMP 97.9; O2SAT 98
[2017-02-22] MEDS: RESP: ALBUTEROL 2.5 MG/IPRATROPIUM 0.5 MG NEB (PRN) NEB ×2 (18:27→22:36)
[2017-02-22] MEDS: ONDANSETRON HCL 4 MG/2 ML VIAL IV PUSH PRN (19:09)
[2017-02-22 20:36] VITALS: BP 132/75; PULSE 86; RESP 18; TEMP 98.9; O2SAT 100
[2017-02-22] MEDS ORDERED: ACETAMINOPHEN 325 MG TAB PO PRN (21:30)
[2017-02-22] MEDS: HYDROmorphone HCL PF 0.5 MG/0.5 ML SYRINGE IV PRN (21:59)
[2017-02-22 22:38] VITALS: O2SAT 98
[2017-02-22] MEDS: ENOXAPARIN SODIUM 30 MG/0.3 ML SYRINGE SQ SCH (23:23)
[2017-02-23] VITALS (7 sets, daily range): BP systolic 126–141; BP diastolic 76–82; PULSE 87–107; RESP 16–18; TEMP 97.6–99.8; O2SAT 96–100
[2017-02-23] MEDS ORDERED: REMOVE OLD DURAGESIC (FENTANYL) PATCH T-DERMAL SCH
[2017-02-23] MEDS: GENTAMICIN 80 MG PREMIX 100 ML IV SCH ×3 (01:28→16:12)
[2017-02-23] MEDS: RESP: ALBUTEROL 2.5 MG/IPRATROPIUM 0.5 MG NEB (PRN) NEB ×3 (03:18→23:33)
[2017-02-23] MEDS: HYDROmorphone HCL PF 0.5 MG/0.5 ML SYRINGE IV PRN ×4 (03:28→22:16)
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
[2017-02-23 07:32] LABS: AUTOMATED NEUTROPHIL # 7.5 TH/MM3 (1.8-7.7); BASOPHIL % 0.3 % (0.0-2.0); EOSINOPHIL # 0.1 TH/MM3 (0-0.4); EOSINOPHIL % 0.7 % (0.0-4.0); HEMO FLAGS DIFF FINAL; LYMPHOCYTE # 0.8 TH/MM3 (1.0-4.8); MEAN CORPUSCULAR HEMOGLOBIN 29.8 PG (27.0-34.0); MEAN CORPUSCULAR HGB CONC 34.6 % (32.0-36.0); MONO % 13.5 % (0.0-8.0); NEUT % 77.5 % (16.0-70.0); PLATELET COUNT 154 TH/MM3 (150-450); RED BLOOD COUNT 3.14 MIL/MM3 (4.50-5.90); RED CELL DISTRIBUTION WIDTH 15.5 % (11.6-17.2); WHITE BLOOD COUNT 9.6 TH/MM3 (4.0-11.0)
[2017-02-23 07:52] LABS: ANION GAP 7 MEQ/L (5-15); AST (GOT) 36 U/L (15-37); BICARBONATE 28.8 MEQ/L (21.0-32.0); BLOOD UREA NITROGEN 7 MG/DL (7-18); CHLORIDE 97 MEQ/L (98-107); GLOMERULAR FILTRATION RATE 256 ML/MIN (>89); POTASSIUM 3.9 MEQ/L (3.5-5.1); SODIUM (NA) 133 MEQ/L (136-145)
[2017-02-23 07:58] LABS: ALKALINE PHOSPHATASE 68 U/L (45-117); ALT (GPT) 19 U/L (12-78); TOTAL BILIRUBIN ADULT 0.7 MG/DL (0.2-1.0)
[2017-02-23] MEDS ORDERED: BISACODYL EC 5 MG TABEC PO ONE (08:00)
[2017-02-23] MEDS ORDERED: BISACODYL 10 MG SUPP RECTAL ONE (08:00)
[2017-02-23] MEDS: DOCUSATE SODIUM 50 MG/SENNA 8.6 MG TAB PO SCH ×2 (08:22→20:44)
[2017-02-23] MEDS: MAGNESIUM HYDROXIDE SUSP 30 ML CUP PO SCH ×2 (08:23→20:43)
[2017-02-23] MEDS: MULTIVITAMINS/MINERALS THERAPEUTIC TAB PO SCH (08:23)
[2017-02-23] MEDS: LACTULOSE SYRUP 20 GM/30 ML CUP PO SCH (08:23)
[2017-02-23] MEDS: FAMOTIDINE 20 MG TAB PO SCH ×2 (08:23→20:44)
[2017-02-23] MEDS: CHOLECALCIFEROL (VIT D3) 1000 UNIT TAB PO SCH (08:23)
[2017-02-23] MEDS: ceFAZolin 2 GM PREMIX 50 ML IV SCH ×3 (08:24→22:16)
[2017-02-23] MEDS: BACITRACIN TOP OINT 15 GM TUBE TOP SCH ×2 (09:00→20:50)
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
[2017-02-23] MEDS: ENOXAPARIN SODIUM 30 MG/0.3 ML SYRINGE SQ SCH ×2 (12:43→22:16)
[2017-02-23] MEDS: SODIUM CHLORIDE 0.9% FLUSH 10 ML FLUSH IV FLUSH SCH ×2 (16:12→20:50)
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
[2017-02-24] MEDS: GENTAMICIN 80 MG PREMIX 100 ML IV SCH ×2 (00:18→07:54)
[2017-02-24 00:30] VITALS: BP 129/77; PULSE 96; RESP 17; TEMP 97; O2SAT 97
[2017-02-24] MEDS: RESP: ALBUTEROL 2.5 MG/IPRATROPIUM 0.5 MG NEB (PRN) NEB ×2 (02:15→19:42)
[2017-02-24 04:21] VITALS: BP 129/80; PULSE 110; RESP 17; TEMP 99.5; O2SAT 97
[2017-02-24] MEDS: HYDROmorphone HCL PF 0.5 MG/0.5 ML SYRINGE IV PRN ×2 (05:10→17:31)
[2017-02-24] MEDS ORDERED: FAMOTIDINE 20 MG/2 ML VIAL ONE (06:45)
[2017-02-24] MEDS ORDERED: ACETAMINOPHEN 1000 MG/100 ML 100 ML IV ONE (06:45)
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
[2017-02-24] MEDS ORDERED: VANCOMYCIN HCL 1000 MG VIAL ONE (06:57)
[2017-02-24] MEDS ORDERED: SODIUM CHLOR 0.9% 250 ML INJ 250 ML ONE (06:58)
[2017-02-24] MEDS ORDERED: GENTAMICIN SULFATE 80 MG/2 ML VIAL ONE (06:58)
[2017-02-24] MEDS: ceFAZolin 2 GM PREMIX 50 ML IV SCH ×5 (07:30→23:30)
[2017-02-24] MEDS ORDERED: Post-op Orders (for Pharmacy) MISC XX ONE (08:30)
--- NOTE | 2017-02-24 08:35 | PD.OP ---
cc: Deven Duncan MD Operative Report Date of Surgery: Feb 24, 2017 Preoperative Diagnosis: Left ankle bimalleolar fracture, right distal fibula fracture Postoperative Diagnosis: Procedure: Open reduction internal fixation left ankle bimalleolar fracture, open reduction and fixation right fibula fracture, stress exam of syndesmosis under fluoroscopy Surgeon: Deven Duncan Assorter(s): ROSE Han PA-C The surgical procedure was assisted by my physician assistant clinical nurse manager. My P.A. presence was necessary throughout this case for the manipulation and positioning of the surgical extremity. My P.A. was assisting me throughout the duration of this procedure. The skill set of a physician assistant clinical nurse manager was medically necessary to complete this procedure. During the surgical case the surgical clinical reviewer was working at the back table and the physician assistant clinical nurse manager was directly assisting me. Operation and Findings: Implants used : ITS Patient was seen and evaluated preoperatively and found to have a left displaced ankle bimalleolar fracture and a right fibula fracture. Informed consent was obtained after a detailed discussion of risk and benefits of surgery. The operative site was marked. Patient was brought to the OR, placed on the OR table, and given IV sedation and general endotracheal anesthesia. IV antibiotics were given preoperatively. A timeout procedure was performed. Left leg was prepped with alcohol followed by Hibiclens and draped in the usual sterile fashion. Attention was turned towards the distal fibula. A four-inch incision was made over the distal fibula. The subcutaneous tissue was dissected with Bovie. The fracture site was visualized. The fracture site was cleaned with curets. The fracture was now reduced. The fracture keyed into anatomic alignment. K-wires were used to h old provisional fixation. A lag screw was placed to compress fracture. A plate was selected and contoured to fit the distal fibula. The plate was provisionally held to bone with K-wires. 3.5 cortical screws were used to compress the plate to bone. Multiple screws were placed above and below the fracture. Next attention was turned towards the medial malleolus. The medial malleolus supposed through a 3 cm incision. Saphenous vein was retracted. Fracture was visualized. Fracture was cleaned with curettes. Fracture was now reduced and keyed into anatomic alignment. K wires were used to hold provisional fixation. 2 guidepins for the 4.0 cannulated screws were placed in a retrograde fashion across the fracture. Fluoroscopy was used to confirm guidepin placement. Cannulated drill was placed over the guidepin. 2 appropriate length screws were now placed. Good compression was applied. Fluoroscopy confirmed well aligned fracture with well-placed hardware. Next, attention was turned to the syndesmosis. The syndesmosis was stressed. There was no widening of the syndesmosis with external rotation of the ankle. Incisions were thoroughly irrigated. The subcutaneous tissue was closed with 3- 0 Vicryl and the skin was closed with 3-0 nylon. Sterile dressings were applied. A well molded well-padded splint was applied. Patient was now repositioned. The right leg was prepped with alcohol followed by Hibiclens and draped in the usual sterile fashion. Attention was turned towards the distal fibula. A four-inch incision was made over the distal fibula. The subcutaneous tissue was dissected with Bovie. The fracture site was visualized. The fracture site was cleaned with curets. The fracture was now reduced. The fracture keyed into anatomic alignment. K-wires were used to hold provisional fixation. A plate was selected and contoured to fit the distal fibula. The plate was provisionally held to bone with K-wires. 3.5 cortical screws were used to compress the plate to bone. Multiple screws were placed above and below the fracture. Next, attention was turned to the syndesmosis. The syndesmosis was stressed. There was no widening of the syndesmosis with external rotation of the ankle. Incisions were thoroughly irrigated. The subcutaneous tissue was closed with 3- 0 Vicryl and the skin was closed with 3-0 nylon. Sterile dressings were applied. A well molded well-padded splint was applied. The patient was transferred to Recovery in stable condition. Needle and sponge counts were correct. The patient was transferred to Recovery in stable condition. Needle and sponge counts were correct. Deven Duncan MD Feb 24, 2017 08:35
[2017-02-24] MEDS: FAMOTIDINE 20 MG TAB PO SCH ×2 (09:00→22:01)
[2017-02-24] MEDS: DOCUSATE SODIUM 50 MG/SENNA 8.6 MG TAB PO SCH ×2 (09:00→22:01)
[2017-02-24] MEDS: MULTIVITAMINS/MINERALS THERAPEUTIC TAB PO SCH (09:00)
[2017-02-24] MEDS: LACTULOSE SYRUP 20 GM/30 ML CUP PO SCH (09:00)
[2017-02-24] MEDS: CHOLECALCIFEROL (VIT D3) 1000 UNIT TAB PO SCH (09:00)
[2017-02-24] MEDS: SODIUM CHLORIDE 0.9% FLUSH 10 ML FLUSH IV FLUSH SCH ×2 (09:00→22:02)
[2017-02-24] MEDS: BACITRACIN TOP OINT 15 GM TUBE TOP SCH ×2 (09:00→22:10)
[2017-02-24] MEDS: MAGNESIUM HYDROXIDE SUSP 30 ML CUP PO SCH ×2 (09:00→23:30)
--- NOTE | 2017-02-24 10:12 | RADRPT ---
EXAM DATE/TIME: 02/24/2017 08:18 [facility] COMPARISON: No previous studies available for comparison. INDICATIONS : Open reduction internal fixation left ankle. MEDICAL HISTORY : None. SURGICAL HISTORY : None. ENCOUNTER: Initial ACUITY: 1 day PAIN SCORE: Non-responsive. LOCATION: Left Ankle FINDINGS: Anatomic alignment on the reduction and internal fixation of the ankle. Plate is seen bridging the f ibular fracture. Cortical lag screws are seen in the medial malleolus. CONCLUSION: Anatomic alignment. Yoel Harding MD FACR on February 24, 2017 at 10:09 Board Certified Radiologist. This report was verified electronically.
--- NOTE | 2017-02-24 10:14 | RADRPT ---
EXAM DATE/TIME: 02/24/2017 09:30 [facility] COMPARISON: No previous studies available for comparison. INDICATIONS : Open reduction internal fixation right ankle. MEDICAL HISTORY : None. SURGICAL HISTORY : None. ENCOUNTER: Initial ACUITY: 1 day PAIN SCORE: Non-responsive. LOCATION: Right Ankle FINDINGS: Anatomic alignment following open reduction internal fixation of fibular fracture. CONCLUSION: Anatomic alignment. Yoel Harding MD FACR on February 24, 2017 at 10:12 Board Certified Radiologist. This report was verified electronically.
[2017-02-24] MEDS ORDERED: DO NOT ADM ANY ANTICOAGULANT DRUGS PRN (10:15)
[2017-02-24] MEDS ORDERED: *morphine SULFATE 8 MG/ML PERIprocedure ONLY ONE ×3 (10:43→11:11)
[2017-02-24] MEDS: ENOXAPARIN SODIUM 30 MG/0.3 ML SYRINGE SQ SCH ×2 (11:00→23:30)
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
[2017-02-24 12:00] VITALS: BP 128/83; PULSE 88; RESP 18; TEMP 96.7; O2SAT 99
[2017-02-24] MEDS ORDERED: NEOSTIGMINE 3 MG/3 ML SYR IV ONE (12:00)
[2017-02-24] MEDS ORDERED: LIDOCAINE HCL 1% PF 5 ML AMPULE OTHER ONE (12:00)
[2017-02-24] MEDS ORDERED: DEXAMETHASONE SOD PHOS 4 MG/ML VIAL IV ONE (12:00)
[2017-02-24] MEDS ORDERED: PROPOFOL 200 MG/20 ML AMP IV ONE (12:00)
[2017-02-24] MEDS ORDERED: GLYCOPYRROLATE 1 MG/5 ML SYRINGE IV PUSH ONE (12:00)
[2017-02-24] MEDS ORDERED: LACTATED RINGER'S 1000 ML INJ 2,000 ML IV ONE (12:00)
[2017-02-24] MEDS ORDERED: ONDANSETRON HCL 4 MG/2 ML VIAL IV PUSH ONE (12:00)
[2017-02-24] MEDS ORDERED: ROCURONIUM INJ 50 MG/5 ML SYRINGE IV PUSH ONE (12:00)
[2017-02-24] MEDS ORDERED: MIDAZOLAM HCL 2 MG/2 ML VIAL IV ONE (12:00)
[2017-02-24] MEDS ORDERED: VECURONIUM BROMIDE 20 MG VIAL IV ONE (12:00)
[2017-02-24] MEDS: fentaNYL 75 MCG/HR PATCH T-DERMAL SCH (13:43)
[2017-02-24 16:00] VITALS: BP 125/78; PULSE 93; RESP 16; TEMP 98.1; O2SAT 99
[2017-02-24 16:05] LABS: AUTOMATED NEUTROPHIL # 10.7 TH/MM3 (1.8-7.7); BASOPHIL % 0.2 % (0.0-2.0); HEMATOCRIT 28.9 % (39.0-51.0); HEMO FLAGS DIFF FINAL; LYMPH % 3.8 % (9.0-44.0); LYMPHOCYTE # 0.5 TH/MM3 (1.0-4.8); MEAN CELL VOLUME 87.3 FL (80.0-100.0); MEAN CORPUSCULAR HEMOGLOBIN 29.1 PG (27.0-34.0); MEAN CORPUSCULAR HGB CONC 33.3 % (32.0-36.0); MONO % 4.3 % (0.0-8.0); NEUT % 91.7 % (16.0-70.0); PLATELET COUNT 243 TH/MM3 (150-450); RED BLOOD COUNT 3.32 MIL/MM3 (4.50-5.90); RED CELL DISTRIBUTION WIDTH 15.3 % (11.6-17.2); WHITE BLOOD COUNT 11.7 TH/MM3 (4.0-11.0)
[2017-02-24 16:27] LABS: BICARBONATE 29.1 MEQ/L (21.0-32.0); POTASSIUM 5.5 MEQ/L (3.5-5.1)
[2017-02-24] MEDS: VANCOMYCIN INJ 1,000 MG in SODIUM CHLOR 0.9% 250 ML INJ 250 ML IV SCH (19:09)
[2017-02-24 19:42] VITALS: O2SAT 98
[2017-02-24 20:30] VITALS: BP 137/72; PULSE 98; RESP 16; TEMP 97.9; O2SAT 100
[2017-02-25] VITALS (7 sets, daily range): BP systolic 115–147; BP diastolic 72–81; PULSE 88–105; RESP 16–17; TEMP 97.4–99.3; O2SAT 96–100
[2017-02-25] MEDS: HYDROmorphone HCL PF 0.5 MG/0.5 ML SYRINGE IV PRN ×4 (00:55→20:44)
[2017-02-25 04:01] LABS: AUTOMATED NEUTROPHIL # 8.5 TH/MM3 (1.8-7.7); BASOPHIL % 0.3 % (0.0-2.0); EOSINOPHIL # 0.1 TH/MM3 (0-0.4); EOSINOPHIL % 0.7 % (0.0-4.0); HEMATOCRIT 27.7 % (39.0-51.0); HEMO FLAGS AUTO DIFF; LYMPH % 12.9 % (9.0-44.0); LYMPHOCYTE # 1.5 TH/MM3 (1.0-4.8); MEAN CELL VOLUME 87.2 FL (80.0-100.0); MEAN CORPUSCULAR HEMOGLOBIN 29.5 PG (27.0-34.0); MEAN CORPUSCULAR HGB CONC 33.8 % (32.0-36.0); MONO % 14.7 % (0.0-8.0); NEUT % 71.4 % (16.0-70.0); PLATELET COUNT 287 TH/MM3 (150-450); RED BLOOD COUNT 3.18 MIL/MM3 (4.50-5.90); RED CELL DISTRIBUTION WIDTH 15.3 % (11.6-17.2)
[2017-02-25 04:29] LABS: BICARBONATE 29.9 MEQ/L (21.0-32.0); POTASSIUM 4.4 MEQ/L (3.5-5.1)
[2017-02-25 05:33] LABS: BANDS 1 % (0-6); METAMYELOCYTES 2 % (0-1); MYELOCYTES 2 % (0-0); NEUTROPHIL # MANUAL DIFF 9.4 TH/MM3 (1.8-7.7); POLYS (SEG NEUTROPHILS) 73 % (16-70); WBC DIFF SAMPLE 100
[2017-02-25 05:34] LABS: PLATELET ESTIMATE SMEAR NORMAL (NORMAL); PLATELET MORPHOLOGY NORMAL (NORMAL); SCAN/DIFF FINAL DIFF MANUAL
[2017-02-25 05:35] LABS: POLYCHROMASIA 3.6 % (0.0-1.9)
[2017-02-25] MEDS: VANCOMYCIN INJ 1,000 MG in SODIUM CHLOR 0.9% 250 ML INJ 250 ML IV SCH (05:49)
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
[2017-02-25] MEDS ORDERED: XARE10TA PO (06:44)
[2017-02-25] MEDS ORDERED: OXYC-395 PO (06:45)
[2017-02-25] MEDS: ceFAZolin 2 GM PREMIX 50 ML IV SCH ×2 (08:38→17:15)
[2017-02-25] MEDS: SODIUM CHLORIDE 0.9% FLUSH 10 ML FLUSH IV FLUSH SCH ×2 (08:39→20:41)
[2017-02-25] MEDS: CHOLECALCIFEROL (VIT D3) 1000 UNIT TAB PO SCH (08:39)
[2017-02-25] MEDS: DOCUSATE SODIUM 50 MG/SENNA 8.6 MG TAB PO SCH ×2 (08:39→20:43)
[2017-02-25] MEDS: MULTIVITAMINS/MINERALS THERAPEUTIC TAB PO SCH (08:39)
[2017-02-25] MEDS: FAMOTIDINE 20 MG TAB PO SCH ×2 (08:39→20:43)
[2017-02-25] MEDS: LACTULOSE SYRUP 20 GM/30 ML CUP PO SCH (08:39)
[2017-02-25] MEDS: BACITRACIN TOP OINT 15 GM TUBE TOP SCH ×2 (08:40→20:43)
[2017-02-25] MEDS: MAGNESIUM HYDROXIDE SUSP 30 ML CUP PO SCH ×2 (08:44→20:43)
[2017-02-25] MEDS: RESP: ALBUTEROL 2.5 MG/IPRATROPIUM 0.5 MG NEB (PRN) NEB (10:36)
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
[2017-02-25] MEDS ORDERED: MAGNESIUM CITRATE SOLN 300 ML BTL PO ONE (12:00)
[2017-02-25] MEDS: ENOXAPARIN SODIUM 30 MG/0.3 ML SYRINGE SQ SCH ×2 (13:11→22:21)
--- NOTE | 2017-02-25 14:53 | PD.PLAS.PN ---
Subjective Remarks Patient recovering from surgery. Asked to see patient due to changes from the admission films of his right hand. Vital Signs Date Time Temp Pulse Resp B/P (MAP) Pulse Ox O2 Delivery O2 Flow Rate FiO2 02/25/17 09:39 16 02/25/17 08:35 98.0 100 16 115/72 (86) 98 02/25/17 07:50 17 02/25/17 04:00 98.4 95 16 136/76 (96) 99 02/25/17 04:00 98.7 88 17 128/74 (92) 99 02/25/17 00:00 98.7 88 17 128/74 (92) 99 02/24/17 22:00 Room Air 02/24/17 20:30 97.9 98 16 137/72 (93) 100 02/24/17 19:42 98 21 02/24/17 16:00 98.1 93 16 125/78 (94) 99 02/24/17 14:57 16 I/O 02/24/17 02/24/17 02/24/17 02/25/17 02/25/17 02/25/17 07:00 15:00 23:00 07:00 15:00 23:00 Intake Total 0 ml 2980 ml 480 ml 290 ml Output Total 1760 ml 2953 ml 1600 ml 1480 ml Balance -1760 ml 27 ml -1120 ml -1190 ml Intake Oral 0 ml 480 ml 480 ml 240 ml IV Total 50 ml Other 2500 ml Output Urine Total 1750 ml 2850 ml 1600 ml 1475 ml Drainage Total 10 ml 3 ml 5 ml Estimated Blood Loss 100 ml # Bowel Movements 0 0 0 0 Laboratory Tests Test 02/24/17 15:50 02/25/17 03:45 White Blood Count 11.7 12.0 Red Blood Count 3.32 3.18 Hemoglobin 9.6 9.4 Hematocrit 28.9 27.7 Mean Corpuscular Volume 87.3 87.2 Mean Corpuscular Hemoglobin 29.1 29.5 Mean Corpuscular Hemoglobin Concent 33.3 33.8 Red Cell Distribution Width 15.3 15.3 Platelet Count 243 287 Mean Platelet Volume 8.0 8.0 Neutrophils (%) (Auto) 91.7 71.4 Lymphocytes (%) (Auto) 3.8 12.9 Monocytes (%) (Auto) 4.3 14.7 Eosinophils (%) (Auto) 0.0 0.7 Basophils (%) (Auto) 0.2 0.3 Neutrophils # (Auto) 10.7 8.5 Lymphocytes # (Auto) 0.5 1.5 Monocytes # (Auto) 0.5 1.8 Eosinophils # (Auto) 0.0 0.1 Basophils # (Auto) 0.0 0.0 CBC Comment DIFF FINAL AUTO DIFF Differential Comment FINAL DIFF MANUAL Blood Urea Nitrogen 13 13 Creatinine 0.47 0.39 Random Glucose 119 107 Calcium Level 8.5 8.3 Sodium Level 131 135 Potassium Level 5.5 4.4 Chloride Level 98 98 Carbon Dioxide Level 29.1 29.9 Anion Gap 4 7 Estimat Glomerular Filtration Rate 213 264 Differential Total Cells Counted 100 Neutrophils % (Manual) 73 Band Neutrophils % 1 Lymphocytes % 12 Monocytes % 10 Neutrophils # (Manual) 9.4 Metamyelocytes 2 Myelocytes 2 Platelet Estimate NORMAL Platelet Morphology Comment NORMAL Polychromasia 3.6 Date/Time Source Procedure Growth Status 02/19/17 07:01 Urine Catheterized Urine Urine Culture - Final NO GROWTH IN 48 HOURS. Complete Result Diagram: 02/25/17 0345 02/25/17 0345 Exam Findings The patient's right hand is splinted. Review of the x-rays reveals dorsal dislocation of the right thumb metacarpal at the carpometacarpal joint. This is a new finding since the x-ray of February 19, 2017. Impression: (1) Dislocation of carpometacarpal joint of right thumb Plan Impression: The patient is made aware of the dislocation of the right thumb CMC joint. Plan: The patient is advised that this needs to be pinned in the operating room. He appears to understand the risks and complications of the surgery. He understands that this will need to be immobilized with pins in place for approximately 6 weeks. He is also made aware that he may need additional surgery if the bone re-dislocates. Surgery is scheduled for February 26, 2017. Chanda Casas MD Feb 25, 2017 14:53
[2017-02-26] VITALS (7 sets, daily range): BP systolic 121–134; BP diastolic 59–75; PULSE 84–109; RESP 16–18; TEMP 97.6–99.9; O2SAT 96–100
[2017-02-26] MEDS: ceFAZolin 2 GM PREMIX 50 ML IV SCH ×2 (00:42→08:00)
[2017-02-26] MEDS: HYDROmorphone HCL PF 0.5 MG/0.5 ML SYRINGE IV PRN (02:39)
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
[2017-02-26] MEDS: LACTULOSE SYRUP 20 GM/30 ML CUP PO SCH (09:00)
[2017-02-26] MEDS: CHOLECALCIFEROL (VIT D3) 1000 UNIT TAB PO SCH (09:00)
[2017-02-26] MEDS: DOCUSATE SODIUM 50 MG/SENNA 8.6 MG TAB PO SCH ×2 (09:00→20:21)
[2017-02-26] MEDS: MAGNESIUM HYDROXIDE SUSP 30 ML CUP PO SCH ×2 (09:00→20:22)
[2017-02-26] MEDS: FAMOTIDINE 20 MG TAB PO SCH ×2 (09:00→20:21)
[2017-02-26] MEDS: MULTIVITAMINS/MINERALS THERAPEUTIC TAB PO SCH (09:00)
[2017-02-26] MEDS: SODIUM CHLORIDE 0.9% FLUSH 10 ML FLUSH IV FLUSH SCH ×2 (09:50→20:21)
[2017-02-26] MEDS: BACITRACIN TOP OINT 15 GM TUBE TOP SCH ×2 (09:50→20:23)
[2017-02-26] MEDS: ENOXAPARIN SODIUM 30 MG/0.3 ML SYRINGE SQ SCH ×2 (10:54→22:16)
[2017-02-26] MEDS: PREGABALIN 75 MG CAP PO SCH ×2 (11:15→20:22)
[2017-02-26] MEDS ORDERED: ONDANSETRON HCL 4 MG/2 ML VIAL IV PUSH ONE (12:00)
[2017-02-26] MEDS ORDERED: DEXAMETHASONE SOD PHOS 4 MG/ML VIAL IV ONE (12:00)
[2017-02-26] MEDS ORDERED: LACTATED RINGER'S 1000 ML INJ 1,000 ML IV ONE (12:00)
[2017-02-26] MEDS ORDERED: PROPOFOL 200 MG/20 ML AMP IV ONE (12:00)
[2017-02-26] MEDS ORDERED: LIDOCAINE HCL 1% PF 5 ML SYRINGE OTHER ONE (12:00)
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
[2017-02-26] MEDS ORDERED: LIDOCAINE HCL 2% 50 ML VIAL ONE (12:34)
[2017-02-26] MEDS ORDERED: BUPIVACAINE HCL PF 0.5% 30 ML VIAL ONE (12:35)
[2017-02-26] MEDS ORDERED: ceFAZolin 2 GM PREMIX 0 ML ONE (12:40)
[2017-02-26] MEDS: METHOCARBAMOL 500 MG TAB PO SCH ×2 (14:00→22:16)
[2017-02-26] MEDS ORDERED: DO NOT ADM ANY ANTICOAGULANT DRUGS PRN (14:12)
--- NOTE | 2017-02-26 14:24 | HHI.PR ---
Immediate Post Op Note Procedure Date: Feb 26, 2017 Pre Op Diagnosis: (1) Dislocation of carpometacarpal joint of right thumb Post Op Diagnosis: (1) Dislocation of carpometacarpal joint of right thumb Surgeon: Chanda Casas Support Associate(s): None. Procedure: Closed reduction and percutaneous fixation of the right thumb CMC joint. Anesthesia: General Drains: None Tourniquet time (min at mmHg) NA Patient to: PACU Patient Condition: Good Implant/Devices: SEE IMPLANT LOG (if applicable) Date/Time of Procedure: SEE SURGICAL CARE RECORD Chanda Casas MD Feb 26, 2017 14:24
[2017-02-26] MEDS ORDERED: LACTULOSE SYRUP 20 GM/30 ML CUP PO ONE (18:00)
[2017-02-26] MEDS: diphenhydrAMINE HCL 25 MG CAP PO PRN (20:21)
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
[2017-02-26] MEDS ORDERED: BISACODYL 10 MG SUPP RECTAL ONE (21:00)
[2017-02-27] VITALS (8 sets, daily range): BP systolic 121–154; BP diastolic 67–76; PULSE 79–109; RESP 18–19; TEMP 97.5–99.9; O2SAT 95–100
[2017-02-27] MEDS: diphenhydrAMINE HCL 25 MG CAP PO PRN ×2 (04:37→23:14)
[2017-02-27] MEDS: METHOCARBAMOL 500 MG TAB PO SCH ×3 (06:06→20:42)
[2017-02-27] MEDS ORDERED: oxyCODONE/ACETAMINOPHEN 5 MG/325 MG TAB PO PRN (08:15)
[2017-02-27] MEDS: oxyCODONE/ACETAMINOPHEN 10 MG/325 MG TAB PO PRN ×3 (08:51→23:15)
[2017-02-27] MEDS: MAGNESIUM HYDROXIDE SUSP 30 ML CUP PO SCH ×2 (08:52→20:37)
[2017-02-27] MEDS: CHOLECALCIFEROL (VIT D3) 1000 UNIT TAB PO SCH (08:52)
[2017-02-27] MEDS: DOCUSATE SODIUM 50 MG/SENNA 8.6 MG TAB PO SCH ×2 (08:52→20:37)
[2017-02-27] MEDS: MULTIVITAMINS/MINERALS THERAPEUTIC TAB PO SCH (08:52)
[2017-02-27] MEDS: LACTULOSE SYRUP 20 GM/30 ML CUP PO SCH (08:52)
[2017-02-27] MEDS: FAMOTIDINE 20 MG TAB PO SCH ×2 (08:52→20:42)
[2017-02-27] MEDS: BACITRACIN TOP OINT 15 GM TUBE TOP SCH ×2 (08:52→20:42)
[2017-02-27] MEDS: PREGABALIN 75 MG CAP PO SCH ×2 (08:52→20:42)
[2017-02-27] MEDS: SODIUM CHLORIDE 0.9% FLUSH 10 ML FLUSH IV FLUSH SCH ×2 (08:53→20:37)
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
[2017-02-27] MEDS: fentaNYL 75 MCG/HR PATCH T-DERMAL SCH (12:13)
[2017-02-27] MEDS: ENOXAPARIN SODIUM 30 MG/0.3 ML SYRINGE SQ SCH ×2 (12:13→23:14)
[2017-02-27] MEDS ORDERED: traZODone HCL 50 MG TAB PO SCH (21:00)
[2017-02-28] VITALS (7 sets, daily range): BP systolic 118–135; BP diastolic 69–83; PULSE 89–99; RESP 17–18; TEMP 97.1–99.7; O2SAT 97–98
[2017-02-28] MEDS: oxyCODONE/ACETAMINOPHEN 10 MG/325 MG TAB PO PRN ×4 (03:33→21:25)
[2017-02-28] MEDS: METHOCARBAMOL 500 MG TAB PO SCH ×3 (04:35→21:23)
[2017-02-28] MEDS: DOCUSATE SODIUM 50 MG/SENNA 8.6 MG TAB PO SCH ×2 (08:34→21:23)
[2017-02-28] MEDS: MULTIVITAMINS/MINERALS THERAPEUTIC TAB PO SCH (08:34)
[2017-02-28] MEDS: CHOLECALCIFEROL (VIT D3) 1000 UNIT TAB PO SCH (08:34)
[2017-02-28] MEDS: FAMOTIDINE 20 MG TAB PO SCH ×2 (08:34→21:23)
[2017-02-28] MEDS: PREGABALIN 75 MG CAP PO SCH ×2 (08:34→21:23)
[2017-02-28] MEDS: BACITRACIN TOP OINT 15 GM TUBE TOP SCH ×2 (08:35→21:24)
[2017-02-28] MEDS: MAGNESIUM HYDROXIDE SUSP 30 ML CUP PO SCH ×2 (08:35→21:22)
[2017-02-28] MEDS: LACTULOSE SYRUP 20 GM/30 ML CUP PO SCH (08:35)
[2017-02-28] MEDS: SODIUM CHLORIDE 0.9% FLUSH 10 ML FLUSH IV FLUSH SCH ×2 (08:35→21:24)
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
[2017-02-28] MEDS: ENOXAPARIN SODIUM 30 MG/0.3 ML SYRINGE SQ SCH ×2 (12:07→22:01)
[2017-02-28] MEDS: MELATONIN 5 MG TAB PO SCH (21:23)
[2017-03-01] MEDS: oxyCODONE/ACETAMINOPHEN 10 MG/325 MG TAB PO PRN ×6 (01:33→22:43)
[2017-03-01] MEDS: METHOCARBAMOL 500 MG TAB PO SCH ×3 (05:39→21:27)
[2017-03-01 07:57] VITALS: BP 128/76; PULSE 88; RESP 17; TEMP 97.4; O2SAT 100
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
[2017-03-01] MEDS: MULTIVITAMINS/MINERALS THERAPEUTIC TAB PO SCH (08:44)
[2017-03-01] MEDS: BACITRACIN TOP OINT 15 GM TUBE TOP SCH ×2 (08:44→21:27)
[2017-03-01] MEDS: CHOLECALCIFEROL (VIT D3) 1000 UNIT TAB PO SCH (08:44)
[2017-03-01] MEDS: SODIUM CHLORIDE 0.9% FLUSH 10 ML FLUSH IV FLUSH SCH ×2 (08:44→21:27)
[2017-03-01] MEDS: PREGABALIN 75 MG CAP PO SCH ×2 (08:44→21:27)
[2017-03-01] MEDS: FAMOTIDINE 20 MG TAB PO SCH ×2 (08:44→21:27)
[2017-03-01] MEDS: DOCUSATE SODIUM 50 MG/SENNA 8.6 MG TAB PO SCH ×2 (09:00→21:26)
[2017-03-01] MEDS: MAGNESIUM HYDROXIDE SUSP 30 ML CUP PO SCH ×2 (09:00→21:27)
[2017-03-01] MEDS: LACTULOSE SYRUP 20 GM/30 ML CUP PO SCH (09:00)
[2017-03-01 09:37] VITALS: O2SAT 100
[2017-03-01] MEDS: ENOXAPARIN SODIUM 30 MG/0.3 ML SYRINGE SQ SCH ×2 (10:34→21:25)
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
[2017-03-01] MEDS ORDERED: WHEEMIS3 (11:10)
[2017-03-01] MEDS ORDERED: BEDSIDE COMMODE1 MI1 (11:10)
[2017-03-01 12:00] VITALS: BP 124/72; PULSE 77; RESP 18; TEMP 97.7; O2SAT 98
[2017-03-01 16:00] VITALS: BP 122/75; PULSE 71; RESP 18; TEMP 98.1; O2SAT 98
[2017-03-01 20:30] VITALS: BP 124/76; PULSE 83; RESP 17; TEMP 98.4; O2SAT 98
[2017-03-01] MEDS: MELATONIN 5 MG TAB PO SCH (21:27)
[2017-03-01] MEDS: diphenhydrAMINE HCL 25 MG CAP PO PRN (22:43)
[2017-03-02] VITALS (9 sets, daily range): BP systolic 116–136; BP diastolic 71–87; PULSE 57–113; RESP 16–18; TEMP 96.9–99.6; O2SAT 97–99
[2017-03-02] MEDS: oxyCODONE/ACETAMINOPHEN 10 MG/325 MG TAB PO PRN ×4 (02:52→14:20)
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
[2017-03-02] MEDS: METHOCARBAMOL 500 MG TAB PO SCH ×3 (06:40→22:37)
[2017-03-02] MEDS: BACITRACIN TOP OINT 15 GM TUBE TOP SCH ×2 (09:00→22:39)
[2017-03-02] MEDS: CHOLECALCIFEROL (VIT D3) 1000 UNIT TAB PO SCH (09:57)
[2017-03-02] MEDS: LACTULOSE SYRUP 20 GM/30 ML CUP PO SCH (09:57)
[2017-03-02] MEDS: MULTIVITAMINS/MINERALS THERAPEUTIC TAB PO SCH (09:57)
[2017-03-02] MEDS: MAGNESIUM HYDROXIDE SUSP 30 ML CUP PO SCH ×2 (09:57→22:38)
[2017-03-02] MEDS: DOCUSATE SODIUM 50 MG/SENNA 8.6 MG TAB PO SCH ×2 (09:57→22:38)
[2017-03-02] MEDS: PREGABALIN 75 MG CAP PO SCH ×2 (09:58→22:38)
[2017-03-02] MEDS: SODIUM CHLORIDE 0.9% FLUSH 10 ML FLUSH IV FLUSH SCH ×2 (09:58→22:39)
[2017-03-02] MEDS: FAMOTIDINE 20 MG TAB PO SCH ×2 (09:58→22:38)
[2017-03-02] MEDS: ENOXAPARIN SODIUM 30 MG/0.3 ML SYRINGE SQ SCH ×2 (10:05→22:38)
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
[2017-03-02] MEDS ORDERED: LACTULOSE SYRUP 20 GM/30 ML CUP PO ONE (11:15)
[2017-03-02] MEDS: fentaNYL 75 MCG/HR PATCH T-DERMAL SCH (14:21)
[2017-03-02] MEDS: MELATONIN 5 MG TAB PO SCH (22:38)
[2017-03-03 00:40] VITALS: BP 124/70; PULSE 102; RESP 16; TEMP 99.1; O2SAT 98
[2017-03-03] MEDS: oxyCODONE/ACETAMINOPHEN 10 MG/325 MG TAB PO PRN ×3 (03:18→20:29)
[2017-03-03] MEDS: METHOCARBAMOL 500 MG TAB PO SCH ×3 (06:08→19:56)
[2017-03-03 08:00] VITALS: BP 115/63; PULSE 100; RESP 18; TEMP 98.3; O2SAT 99
[2017-03-03] MEDS: BACITRACIN TOP OINT 15 GM TUBE TOP SCH ×2 (09:00→19:56)
[2017-03-03] MEDS: MAGNESIUM HYDROXIDE SUSP 30 ML CUP PO SCH ×2 (09:00→19:56)
[2017-03-03] MEDS: LACTULOSE SYRUP 20 GM/30 ML CUP PO SCH (09:00)
[2017-03-03] MEDS: MULTIVITAMINS/MINERALS THERAPEUTIC TAB PO SCH (09:06)
[2017-03-03] MEDS: DOCUSATE SODIUM 50 MG/SENNA 8.6 MG TAB PO SCH ×2 (09:06→19:56)
[2017-03-03] MEDS: CHOLECALCIFEROL (VIT D3) 1000 UNIT TAB PO SCH (09:06)
[2017-03-03] MEDS: PREGABALIN 75 MG CAP PO SCH ×2 (09:06→19:56)
[2017-03-03] MEDS: FAMOTIDINE 20 MG TAB PO SCH ×2 (09:06→19:56)
[2017-03-03] MEDS: SODIUM CHLORIDE 0.9% FLUSH 10 ML FLUSH IV FLUSH SCH ×2 (09:09→19:56)
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
[2017-03-03 12:00] VITALS: BP 113/68; PULSE 90; RESP 18; TEMP 98.3; O2SAT 97
[2017-03-03] MEDS: ENOXAPARIN SODIUM 30 MG/0.3 ML SYRINGE SQ SCH ×2 (15:14→22:42)
[2017-03-03 16:00] VITALS: BP 121/65; PULSE 100; RESP 18; TEMP 98.8; O2SAT 97
[2017-03-03 19:41] VITALS: BP 131/64; PULSE 72; RESP 18; TEMP 98.3; O2SAT 100
[2017-03-03] MEDS: MELATONIN 5 MG TAB PO SCH (19:56)
[2017-03-03 23:41] VITALS: BP 109/63; PULSE 77; RESP 18; TEMP 98.2; O2SAT 98
[2017-03-04] VITALS (7 sets, daily range): BP systolic 117–129; BP diastolic 58–73; PULSE 81–106; RESP 18–19; TEMP 96.7–99.4; O2SAT 95–100
[2017-03-04] MEDS: oxyCODONE/ACETAMINOPHEN 10 MG/325 MG TAB PO PRN ×4 (03:53→23:22)
[2017-03-04] MEDS: METHOCARBAMOL 500 MG TAB PO SCH ×3 (06:30→20:40)
[2017-03-04] MEDS: MAGNESIUM HYDROXIDE SUSP 30 ML CUP PO SCH ×2 (09:00→20:41)
[2017-03-04] MEDS: LACTULOSE SYRUP 20 GM/30 ML CUP PO SCH (09:00)
[2017-03-04] MEDS: BACITRACIN TOP OINT 15 GM TUBE TOP SCH ×2 (09:00→20:40)
[2017-03-04] MEDS: MULTIVITAMINS/MINERALS THERAPEUTIC TAB PO SCH (09:28)
[2017-03-04] MEDS: DOCUSATE SODIUM 50 MG/SENNA 8.6 MG TAB PO SCH ×2 (09:28→20:39)
[2017-03-04] MEDS: SODIUM CHLORIDE 0.9% FLUSH 10 ML FLUSH IV FLUSH SCH ×2 (09:29→20:40)
[2017-03-04] MEDS: CHOLECALCIFEROL (VIT D3) 1000 UNIT TAB PO SCH (09:29)
[2017-03-04] MEDS: PREGABALIN 75 MG CAP PO SCH ×2 (09:29→20:39)
[2017-03-04] MEDS: FAMOTIDINE 20 MG TAB PO SCH ×2 (09:29→20:39)
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
[2017-03-04] MEDS: ENOXAPARIN SODIUM 30 MG/0.3 ML SYRINGE SQ SCH ×2 (11:00→23:22)
[2017-03-04] MEDS: MELATONIN 5 MG TAB PO SCH (20:41)
[2017-03-05] MEDS: METHOCARBAMOL 500 MG TAB PO SCH ×3 (05:51→20:47)
[2017-03-05] MEDS: oxyCODONE/ACETAMINOPHEN 10 MG/325 MG TAB PO PRN ×3 (05:56→22:48)
[2017-03-05 08:00] VITALS: BP 122/71; PULSE 89; RESP 18; TEMP 98.6; O2SAT 99
[2017-03-05] MEDS: MAGNESIUM HYDROXIDE SUSP 30 ML CUP PO SCH ×2 (09:00→20:45)
[2017-03-05] MEDS: BACITRACIN TOP OINT 15 GM TUBE TOP SCH ×2 (09:00→20:47)
[2017-03-05] MEDS: MULTIVITAMINS/MINERALS THERAPEUTIC TAB PO SCH (09:26)
[2017-03-05] MEDS: CHOLECALCIFEROL (VIT D3) 1000 UNIT TAB PO SCH (09:26)
[2017-03-05] MEDS: PREGABALIN 75 MG CAP PO SCH ×2 (09:26→20:43)
[2017-03-05] MEDS: DOCUSATE SODIUM 50 MG/SENNA 8.6 MG TAB PO SCH ×2 (09:27→20:44)
[2017-03-05] MEDS: LACTULOSE SYRUP 20 GM/30 ML CUP PO SCH (09:27)
[2017-03-05] MEDS: FAMOTIDINE 20 MG TAB PO SCH ×2 (09:27→20:43)
[2017-03-05] MEDS: SODIUM CHLORIDE 0.9% FLUSH 10 ML FLUSH IV FLUSH SCH ×2 (09:31→20:44)
[2017-03-05] MEDS ORDERED: FENT75T T-DERMAL (10:50)
[2017-03-05] MEDS ORDERED: OXYC1TAB63 PO (10:50)
[2017-03-05] MEDS ORDERED: LYRI75CA PO (10:50)
[2017-03-05] MEDS ORDERED: PERI PO (10:50)
[2017-03-05] MEDS ORDERED: MELA5 PO (10:55)
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
[2017-03-05 12:00] VITALS: BP 149/75; PULSE 100; RESP 18; TEMP 97.3; O2SAT 98
[2017-03-05] MEDS: ENOXAPARIN SODIUM 30 MG/0.3 ML SYRINGE SQ SCH ×2 (12:41→22:44)
[2017-03-05] MEDS: fentaNYL 75 MCG/HR PATCH T-DERMAL SCH (12:45)
[2017-03-05 16:00] VITALS: BP 124/72; PULSE 96; RESP 18; TEMP 98.4; O2SAT 100
[2017-03-05 20:16] VITALS: BP 112/63; PULSE 103; RESP 18; TEMP 99.5; O2SAT 99
[2017-03-05] MEDS: MELATONIN 5 MG TAB PO SCH (20:43)
[2017-03-05 23:14] VITALS: O2SAT 98
[2017-03-06] VITALS (8 sets, daily range): BP systolic 112–138; BP diastolic 62–72; PULSE 93–120; RESP 18–20; TEMP 97–99.6; O2SAT 97–100
[2017-03-06] MEDS: METHOCARBAMOL 500 MG TAB PO SCH ×3 (06:00→22:00)
[2017-03-06] MEDS: PREGABALIN 75 MG CAP PO SCH ×2 (08:02→19:59)
[2017-03-06] MEDS: oxyCODONE/ACETAMINOPHEN 10 MG/325 MG TAB PO PRN ×2 (08:02→22:07)
[2017-03-06] MEDS: DOCUSATE SODIUM 50 MG/SENNA 8.6 MG TAB PO SCH ×2 (08:03→19:59)
[2017-03-06] MEDS: FAMOTIDINE 20 MG TAB PO SCH ×2 (08:03→19:59)
[2017-03-06] MEDS: MULTIVITAMINS/MINERALS THERAPEUTIC TAB PO SCH (08:03)
[2017-03-06] MEDS: CHOLECALCIFEROL (VIT D3) 1000 UNIT TAB PO SCH (08:03)
[2017-03-06] MEDS: MAGNESIUM HYDROXIDE SUSP 30 ML CUP PO SCH ×2 (08:05→20:00)
[2017-03-06] MEDS: LACTULOSE SYRUP 20 GM/30 ML CUP PO SCH (08:05)
[2017-03-06] MEDS: SODIUM CHLORIDE 0.9% FLUSH 10 ML FLUSH IV FLUSH SCH ×2 (08:06→19:59)
[2017-03-06] MEDS: BACITRACIN TOP OINT 15 GM TUBE TOP SCH ×2 (08:06→21:00)
[2017-03-06] MEDS: ENOXAPARIN SODIUM 30 MG/0.3 ML SYRINGE SQ SCH ×2 (10:58→22:07)
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
[2017-03-06] MEDS: MELATONIN 5 MG TAB PO SCH (19:59)
[2017-03-07 00:59] VITALS: BP 128/73; PULSE 98; RESP 18; TEMP 100; O2SAT 97
[2017-03-07] MEDS: METHOCARBAMOL 500 MG TAB PO SCH ×3 (06:00→22:00)
[2017-03-07] MEDS: oxyCODONE/ACETAMINOPHEN 10 MG/325 MG TAB PO PRN ×4 (06:00→23:18)
[2017-03-07 07:17] VITALS: BP 113/64; PULSE 83; RESP 18; TEMP 97; O2SAT 100
[2017-03-07] MEDS: PREGABALIN 75 MG CAP PO SCH ×2 (07:26→22:04)
[2017-03-07] MEDS: DOCUSATE SODIUM 50 MG/SENNA 8.6 MG TAB PO SCH ×2 (07:26→22:04)
[2017-03-07] MEDS: MULTIVITAMINS/MINERALS THERAPEUTIC TAB PO SCH (07:26)
[2017-03-07] MEDS: FAMOTIDINE 20 MG TAB PO SCH ×2 (07:26→22:04)
[2017-03-07] MEDS: CHOLECALCIFEROL (VIT D3) 1000 UNIT TAB PO SCH (07:26)
[2017-03-07] MEDS: SODIUM CHLORIDE 0.9% FLUSH 10 ML FLUSH IV FLUSH SCH ×2 (09:00→22:05)
[2017-03-07] MEDS: MAGNESIUM HYDROXIDE SUSP 30 ML CUP PO SCH ×2 (09:00→21:00)
[2017-03-07] MEDS: LACTULOSE SYRUP 20 GM/30 ML CUP PO SCH (09:00)
[2017-03-07] MEDS: BACITRACIN TOP OINT 15 GM TUBE TOP SCH ×2 (09:00→21:00)
[2017-03-07] MEDS: ENOXAPARIN SODIUM 30 MG/0.3 ML SYRINGE SQ SCH ×2 (11:02→22:03)
[2017-03-07 12:00] VITALS: BP 118/68; PULSE 110; RESP 18; TEMP 97.7; O2SAT 98
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
[2017-03-07 16:00] VITALS: BP 105/56; PULSE 95; RESP 18; TEMP 97.6; O2SAT 100
[2017-03-07 20:59] VITALS: BP 121/66; PULSE 102; RESP 18; TEMP 99.1; O2SAT 100
[2017-03-07] MEDS: MELATONIN 5 MG TAB PO SCH (22:02)
[2017-03-07 23:33] VITALS: BP 117/56; PULSE 106; RESP 18; TEMP 97.8; O2SAT 99
[2017-03-08] MEDS: METHOCARBAMOL 500 MG TAB PO SCH ×4 (06:00→23:36)
[2017-03-08] MEDS: oxyCODONE/ACETAMINOPHEN 10 MG/325 MG TAB PO PRN ×3 (06:06→22:54)
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
[2017-03-08 08:00] VITALS: BP 107/63; PULSE 80; RESP 18; TEMP 97.1; O2SAT 100
[2017-03-08] MEDS: LACTULOSE SYRUP 20 GM/30 ML CUP PO SCH (09:00)
[2017-03-08] MEDS: BACITRACIN TOP OINT 15 GM TUBE TOP SCH ×2 (09:00→20:03)
[2017-03-08] MEDS: MAGNESIUM HYDROXIDE SUSP 30 ML CUP PO SCH ×2 (09:00→20:01)
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
[2017-03-08 12:00] VITALS: BP 127/76; PULSE 99; RESP 18; TEMP 98.2; O2SAT 98
--- NOTE | 2017-03-08 12:15 | RADRPT ---
EXAM DATE/TIME: 03/08/2017 11:04 [facility] COMPARISON: ANKLE RIGHT COMPLETE ([id number]), February 23, 2017, 9:07. INDICATIONS : Evaluate fracture. MEDICAL HISTORY : None. SURGICAL HISTORY : Pelvis fracture. ENCOUNTER: Subsequent ACUITY: 2 weeks PAIN SCORE: 5/10 LOCATION: Right Ankle FINDINGS: Anatomic alignment in fiberglass with plate and screws bridging the fibular fracture. CONCLUSION: Anatomic alignment. Yoel Harding MD FACR on March 08, 2017 at 12:13 Board Certified Radiologist. This report was verified electronically.
--- NOTE | 2017-03-08 12:15 | RADRPT ---
EXAM DATE/TIME: 03/08/2017 11:01 [facility] COMPARISON: ANKLE LEFT COMPLETE ([id number]), February 18, 2017, 22:40. INDICATIONS : Evaluate fracture. MEDICAL HISTORY : None. SURGICAL HISTORY : Pelvis fracture. ENCOUNTER: Subsequent ACUITY: 2 weeks PAIN SCORE: 5/10 LOCATION: Left Ankle FINDINGS: Right is bridging the fibular fracture. Cortical line screws bridging fractured medial malleolus. A natomic alignment. CONCLUSION: Anatomic alignment in fiberglass. Yoel Harding MD FACR on March 08, 2017 at 12:12 Board Certified Radiologist. This report was verified electronically.
--- NOTE | 2017-03-08 12:16 | RADRPT ---
EXAM DATE/TIME: 03/08/2017 11:10 [facility] COMPARISON: HAND LEFT COMPLETE ([id number]), February 19, 2017, 16:51. INDICATIONS : Evaluate fracture. MEDICAL HISTORY : None. SURGICAL HISTORY : Pelvis fracture. ENCOUNTER: Subsequent ACUITY: 2 weeks PAIN SCORE: 2/10 LOCATION: Left Hand FINDINGS: Anatomic alignment across the fracture second and fourth metacarpals. CONCLUSION: Anatomic alignment in fiberglass.. Yoel Harding MD FACR on March 08, 2017 at 12:13 Board Certified Radiologist. This report was verified electronically.
--- NOTE | 2017-03-08 12:17 | RADRPT ---
EXAM DATE/TIME: 03/08/2017 11:12 [facility] COMPARISON: WRIST LEFT LIMITED (AP & LAT), February 23, 2017, 18:25. INDICATIONS : Evaluate fracture. MEDICAL HISTORY : None. SURGICAL HISTORY : Pelvis fracture. ENCOUNTER: Subsequent ACUITY: 2 weeks PAIN SCORE: 2/10 LOCATION: Left Wrist. FINDINGS: Anatomic alignment in fiberglass fractured second metacarpal. CONCLUSION: Anatomic alignment. Yoel Harding MD FACR on March 08, 2017 at 12:14 Board Certified Radiologist. This report was verified electronically.
--- NOTE | 2017-03-08 12:18 | RADRPT ---
EXAM DATE/TIME: 03/08/2017 11:27 [facility] COMPARISON: FEMUR RIGHT (AP & LAT/2VWS), February 18, 2017, 18:33. INDICATIONS : Evaluate fracture. MEDICAL HISTORY : None. SURGICAL HISTORY : Pelvis fracture. ENCOUNTER: Subsequent ACUITY: 2 weeks PAIN SCORE: 8/10 LOCATION: Right Femur FINDINGS: Intramedullary belinda and trochanteric nail are seen in right femur in anatomic alignment. CONCLUSION: Anatomic alignment.. Yoel Harding MD FACR on March 08, 2017 at 12:16 Board Certified Radiologist. This report was verified electronically.
--- NOTE | 2017-03-08 12:18 | RADRPT ---
EXAM DATE/TIME: 03/08/2017 11:18 [facility] COMPARISON: No previous studies available for comparison. INDICATIONS : Evalaute fracture. MEDICAL HISTORY : None. SURGICAL HISTORY : Pelvis fracture ENCOUNTER: Subsequent ACUITY: 2 weeks PAIN SCORE: 10/10 LOCATION: Left Elbow. FINDINGS: Plates and multiple screws are seen bridging the severely comminuted fracture of the elbow. Alignmen t is reasonably anatomic. CONCLUSION: Reasonable alignment in splint. Yoel Harding MD FACR on March 08, 2017 at 12:15 Board Certified Radiologist. This report was verified electronically.
[2017-03-08] MEDS: fentaNYL 75 MCG/HR PATCH T-DERMAL SCH (12:24)
[2017-03-08] MEDS: DOCUSATE SODIUM 50 MG/SENNA 8.6 MG TAB PO SCH ×2 (12:24→20:05)
[2017-03-08] MEDS: PREGABALIN 75 MG CAP PO SCH ×2 (12:24→20:05)
[2017-03-08] MEDS: MULTIVITAMINS/MINERALS THERAPEUTIC TAB PO SCH (12:24)
[2017-03-08] MEDS: CHOLECALCIFEROL (VIT D3) 1000 UNIT TAB PO SCH (12:25)
[2017-03-08] MEDS: SODIUM CHLORIDE 0.9% FLUSH 10 ML FLUSH IV FLUSH SCH ×2 (12:25→20:02)
[2017-03-08] MEDS: FAMOTIDINE 20 MG TAB PO SCH ×2 (12:25→20:05)
[2017-03-08] MEDS: ENOXAPARIN SODIUM 30 MG/0.3 ML SYRINGE SQ SCH ×2 (12:26→22:54)
[2017-03-08 16:00] VITALS: BP 100/60; PULSE 90; RESP 18; TEMP 98; O2SAT 100
[2017-03-08 19:01] VITALS: BP 117/58; PULSE 97; RESP 19; TEMP 98.8; O2SAT 100
[2017-03-08] MEDS: MELATONIN 5 MG TAB PO SCH (20:05)
[2017-03-08 23:04] VITALS: BP 128/58; PULSE 93; RESP 18; TEMP 98; O2SAT 95
[2017-03-09] MEDS: oxyCODONE/ACETAMINOPHEN 10 MG/325 MG TAB PO PRN ×3 (05:53→20:56)
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
[2017-03-09 07:49] VITALS: BP 124/63; PULSE 97; RESP 18; TEMP 96.7; O2SAT 97
[2017-03-09] MEDS: PREGABALIN 75 MG CAP PO SCH ×2 (08:38→20:56)
[2017-03-09] MEDS: FAMOTIDINE 20 MG TAB PO SCH ×2 (08:38→20:56)
[2017-03-09] MEDS: MULTIVITAMINS/MINERALS THERAPEUTIC TAB PO SCH (08:38)
[2017-03-09] MEDS: CHOLECALCIFEROL (VIT D3) 1000 UNIT TAB PO SCH (08:38)
[2017-03-09] MEDS: MAGNESIUM HYDROXIDE SUSP 30 ML CUP PO SCH ×2 (08:38→20:56)
[2017-03-09] MEDS: LACTULOSE SYRUP 20 GM/30 ML CUP PO SCH (08:38)
[2017-03-09] MEDS: SODIUM CHLORIDE 0.9% FLUSH 10 ML FLUSH IV FLUSH SCH ×2 (08:39→20:56)
[2017-03-09] MEDS: BACITRACIN TOP OINT 15 GM TUBE TOP SCH ×2 (08:39→20:57)
[2017-03-09] MEDS: DOCUSATE SODIUM 50 MG/SENNA 8.6 MG TAB PO SCH ×2 (08:40→20:56)
[2017-03-09] MEDS: ENOXAPARIN SODIUM 30 MG/0.3 ML SYRINGE SQ SCH ×2 (10:42→23:57)
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
[2017-03-09 11:54] VITALS: BP 122/61; PULSE 84; RESP 18; TEMP 96.8; O2SAT 98
[2017-03-09] MEDS: METHOCARBAMOL 500 MG TAB PO SCH ×3 (11:59→23:57)
[2017-03-09 15:52] VITALS: BP 113/63; PULSE 90; RESP 18; TEMP 98.1; O2SAT 98
[2017-03-09 19:23] VITALS: BP 137/63; PULSE 105; RESP 18; TEMP 99.5; O2SAT 98
[2017-03-09] MEDS: MELATONIN 5 MG TAB PO SCH (20:00)
[2017-03-10 01:30] VITALS: BP 122/63; PULSE 89; RESP 16; TEMP 97.5; O2SAT 99
[2017-03-10] MEDS: oxyCODONE/ACETAMINOPHEN 10 MG/325 MG TAB PO PRN ×4 (03:35→22:10)
[2017-03-10 07:35] VITALS: BP 119/67; PULSE 94; RESP 18; TEMP 97.4; O2SAT 98
[2017-03-10] MEDS: MAGNESIUM HYDROXIDE SUSP 30 ML CUP PO SCH ×2 (09:00→20:43)
[2017-03-10] MEDS: DOCUSATE SODIUM 50 MG/SENNA 8.6 MG TAB PO SCH ×2 (09:00→20:42)
[2017-03-10] MEDS: SODIUM CHLORIDE 0.9% FLUSH 10 ML FLUSH IV FLUSH SCH ×2 (09:00→20:43)
[2017-03-10] MEDS: BACITRACIN TOP OINT 15 GM TUBE TOP SCH ×2 (09:00→20:44)
[2017-03-10] MEDS: LACTULOSE SYRUP 20 GM/30 ML CUP PO SCH (09:00)
[2017-03-10] MEDS: PREGABALIN 75 MG CAP PO SCH ×2 (09:40→20:42)
[2017-03-10] MEDS: FAMOTIDINE 20 MG TAB PO SCH ×2 (09:40→20:42)
[2017-03-10] MEDS: MULTIVITAMINS/MINERALS THERAPEUTIC TAB PO SCH (09:40)
[2017-03-10] MEDS: CHOLECALCIFEROL (VIT D3) 1000 UNIT TAB PO SCH (09:40)
[2017-03-10] MEDS: ENOXAPARIN SODIUM 30 MG/0.3 ML SYRINGE SQ SCH ×2 (10:53→22:10)
[2017-03-10 11:41] VITALS: BP 128/67; PULSE 95; RESP 18; TEMP 97.6; O2SAT 96
[2017-03-10] MEDS: METHOCARBAMOL 500 MG TAB PO SCH ×3 (14:00→22:10)
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
[2017-03-10 15:30] VITALS: BP 115/62; PULSE 88; RESP 16; TEMP 98.1; O2SAT 99
[2017-03-10 17:35] LABS: MEAN CELL VOLUME 88.3 FL (80.0-100.0); MEAN CORPUSCULAR HEMOGLOBIN 30.4 PG (27.0-34.0); MEAN CORPUSCULAR HGB CONC 34.4 % (32.0-36.0); PLATELET COUNT 446 TH/MM3 (150-450); RED BLOOD COUNT 3.18 MIL/MM3 (4.50-5.90); RED CELL DISTRIBUTION WIDTH 14.9 % (11.6-17.2); REVIEW FLAG FINAL; WHITE BLOOD COUNT 7.5 TH/MM3 (4.0-11.0)
[2017-03-10 17:58] LABS: BICARBONATE 30.8 MEQ/L (21.0-32.0); POTASSIUM 3.7 MEQ/L (3.5-5.1)
[2017-03-10 20:35] VITALS: BP 113/58; PULSE 94; RESP 18; TEMP 98.3; O2SAT 98
[2017-03-10] MEDS: MELATONIN 5 MG TAB PO SCH (20:42)
[2017-03-11 00:30] VITALS: BP 109/58; PULSE 99; RESP 18; TEMP 97.9; O2SAT 97
[2017-03-11] MEDS: oxyCODONE/ACETAMINOPHEN 10 MG/325 MG TAB PO PRN ×4 (02:12→17:08)
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
[2017-03-11] MEDS ORDERED: MAGN30S PO (07:39)
[2017-03-11] MEDS ORDERED: FAMO20TA2 PO (07:39)
[2017-03-11] MEDS ORDERED: METH500T3 PO (07:39)
[2017-03-11] MEDS: DOCUSATE SODIUM 50 MG/SENNA 8.6 MG TAB PO SCH (07:49)
[2017-03-11] MEDS: LACTULOSE SYRUP 20 GM/30 ML CUP PO SCH (07:49)
[2017-03-11] MEDS: FAMOTIDINE 20 MG TAB PO SCH (07:49)
[2017-03-11] MEDS: PREGABALIN 75 MG CAP PO SCH (07:49)
[2017-03-11] MEDS: SODIUM CHLORIDE 0.9% FLUSH 10 ML FLUSH IV FLUSH SCH (07:49)
[2017-03-11] MEDS: MAGNESIUM HYDROXIDE SUSP 30 ML CUP PO SCH (07:50)
[2017-03-11] MEDS: BACITRACIN TOP OINT 15 GM TUBE TOP SCH (07:50)
[2017-03-11] MEDS: MULTIVITAMINS/MINERALS THERAPEUTIC TAB PO SCH (07:50)
[2017-03-11] MEDS: CHOLECALCIFEROL (VIT D3) 1000 UNIT TAB PO SCH (07:50)
[2017-03-11 08:00] VITALS: BP 111/63; PULSE 94; RESP 16; TEMP 98.6; O2SAT 99
[2017-03-11] MEDS: fentaNYL 75 MCG/HR PATCH T-DERMAL SCH (12:05)
[2017-03-11] MEDS: ENOXAPARIN SODIUM 30 MG/0.3 ML SYRINGE SQ SCH (12:05)
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
[2017-03-11] MEDS: METHOCARBAMOL 500 MG TAB PO SCH (14:25)
[2017-03-11 16:20] VITALS: BP 133/68; PULSE 96; RESP 16; TEMP 97.8; O2SAT 96
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
== END 2017-03-11 19:20 | DRG 956 ==
LOC: NEPI 13:45 → NEDA 14:16 → MERGE 14:16 → EDBD 14:16 → N03A 21:54 → N06A 02-20 18:13
PROVIDERS: ADMIT Surgery; ATTEND Surgery
PROC: 0Y3C0ZZ Control Bleeding in Right Upper Leg, Open Approach (ICD-10-PCS; 2017-02-18)
PROC: 06QM0ZZ Repair Right Femoral Vein, Open Approach (ICD-10-PCS; 2017-02-18)
PROC: 5A1935Z Respiratory Ventilation, Less than 24 Consecutive Hours (ICD-10-PCS; 2017-02-18)
PROC: 30233K1 Transfusion of Nonautologous Frozen Plasma into Peripheral Vein, Percutaneous Approach (ICD-10-PCS; 2017-02-18)
PROC: 30233N1 Transfusion of Nonautologous Red Blood Cells into Peripheral Vein, Percutaneous Approach (ICD-10-PCS; 2017-02-18)
PROC: 30233R1 Transfusion of Nonautologous Platelets into Peripheral Vein, Percutaneous Approach (ICD-10-PCS; 2017-02-18)
PROC: 0PS Upper Bones, Reposition (ICD-10-PCS; principal; 2017-02-18 15:24)
PROC: 0QS806Z Reposition Right Femoral Shaft with Intramedullary Internal Fixation Device, Open Approach (ICD-10-PCS; 2017-02-18 15:24)
PROC: 05HM33Z Insertion of Infusion Device into Right Internal Jugular Vein, Percutaneous Approach (ICD-10-PCS; 2017-02-19)
PROC: 0P8 Upper Bones, Division (ICD-10-PCS; 2017-02-22)
PROC: 0PSG04Z Reposition Left Humeral Shaft with Internal Fixation Device, Open Approach (ICD-10-PCS; 2017-02-22)
PROC: 0PP Upper Bones, Removal (ICD-10-PCS; 2017-02-22)
PROC: 0QSK04Z Reposition Left Fibula with Internal Fixation Device, Open Approach (ICD-10-PCS; 2017-02-24)
PROC: 0QSH04Z Reposition Left Tibia with Internal Fixation Device, Open Approach (ICD-10-PCS; 2017-02-24)
PROC: 0QSJ04Z Reposition Right Fibula with Internal Fixation Device, Open Approach (ICD-10-PCS; 2017-02-24)
PROC: 0RHS34Z Insertion of Internal Fixation Device into Right Carpometacarpal Joint, Percutaneous Approach (ICD-10-PCS; 2017-02-26)
PROC: 0RSSXZZ Reposition Right Carpometacarpal Joint, External Approach (ICD-10-PCS; 2017-02-26)
PROC: 0T9B70Z Drainage of Bladder with Drainage Device, Via Natural or Artificial Opening (ICD-10-PCS; 2017-02-26)
DX: S72.301A Unspecified fracture of shaft of right femur, initial encounter for closed fracture (principal); S27.321A Contusion of lung, unilateral, initial encounter; J96.00 Acute respiratory failure, unspecified whether with hypoxia or hypercapnia; T79.4XXA Traumatic shock, initial encounter; S32.018A Other fracture of first lumbar vertebra, initial encounter for closed fracture; S42.412B Displaced simple supracondylar fracture without intercondylar fracture of left humerus, initial encounter for open fracture; S32.028A Other fracture of second lumbar vertebra, initial encounter for closed fracture; S75.111A Minor laceration of femoral vein at hip and thigh level, right leg, initial encounter; S75.011A Minor laceration of femoral artery, right leg, initial encounter; S52.515A Nondisplaced fracture of left radial styloid process, initial encounter for closed fracture; S52.512A Displaced fracture of left radial styloid process, initial encounter for closed fracture; D69.59 Other secondary thrombocytopenia; S82.842A Displaced bimalleolar fracture of left lower leg, initial encounter for closed fracture; Y92.410 Unspecified street and highway as the place of occurrence of the external cause; V23.4XXA Motorcycle driver injured in collision with car, pick-up truck or van in traffic accident, initial encounter; Y93.89 Activity, other specified; Z72.0 Tobacco use; Z75.1 Person awaiting admission to adequate facility elsewhere; S92.341A Displaced fracture of fourth metatarsal bone, right foot, initial encounter for closed fracture; S92.351A Displaced fracture of fifth metatarsal bone, right foot, initial encounter for closed fracture; S82.831A Other fracture of upper and lower end of right fibula, initial encounter for closed fracture; S92.331A Displaced fracture of third metatarsal bone, right foot, initial encounter for closed fracture; S63.044A Dislocation of carpometacarpal joint of right thumb, initial encounter; F90.9 Attention-deficit hyperactivity disorder, unspecified type; S62.353A Nondisplaced fracture of shaft of third metacarpal bone, left hand, initial encounter for closed fracture; S62.345A Nondisplaced fracture of base of fourth metacarpal bone, left hand, initial encounter for closed fracture; G56.32 Lesion of radial nerve, left upper limb; M21.332 Wrist drop, left wrist; D64.89 Other specified anemias; F12.10 Cannabis abuse, uncomplicated; G47.00 Insomnia, unspecified; M21.379 Foot drop, unspecified foot; S06.0X0A Concussion without loss of consciousness, initial encounter; R33.9 Retention of urine, unspecified; S30.810A Abrasion of lower back and pelvis, initial encounter
CPT/HCPCS: 27502; 36430; 36556; 70450; 71010; 71260; 72125; 72128; 72131; 72170; 73070; 73080; 73100; 73120; 73130; 73200; 73551; 73552; 73600; 73610; 74177; 74450; 75635; 76000; 76937; 80048; 80053; 80307; 81001; 82435; 82565; 82805; 82947; 83735; 84100; 84132; 84155; 84295; 84520; 85007; 85025; 85027; 85384; 85610; 85730; 86022; 86850; 86900; 86901; 86920; 86927; 87086; 87641; 90471; 90715; 94002; 94003; 94150; 94640; 94664; 94667; 94668; 96374; 96375; 99291; J1170; C1713; G0390; J0131; J0330; J0610; J0690; J1100; J1580; J1650; J1885; J2175; J2250; J2270; J2370; J2405; J2710; J3010; J3370; J3480; J7030; J7040; J7050; J7060; J7120; L0200; L0484; L2114; L3908; P9016; P9017; P9035; Q9958; Q9967

== ENCOUNTER 2017-03-21 12:55 | Inpatient (IN) | payer BC ==
[~2017-03-21] VITALS: Ht 193 cm; Wt 67.2 kg
[~2017-03-21 12:55] MED LIST changes: +BEDSIDE COMMODE1 MI1; +FAMO20TA2 PO; +FENT75T T-DERMAL; +HYDR-3129 PO; +LYRI75CA PO; +MAGN30S PO; +MELA5 PO; +METH500T3 PO; -METOPROLOL TARTRATE 5 MG/5 ML VIAL IV PUSH ONE; -NORMOSOL R INJ 3,000 ML IV ONE; +OXYC1TAB63 PO; +PERC10TA27 PO; +PERI PO; -PHENYLEPH/NS 1000 MCG/10 ML SYR IV ONE; -PHENYLEPHRINE HCL 10 MG/ML VIAL IV ONE; -PROPOFOL 200 MG/20 ML AMP IV ONE; +RIVA10 PO; -ROCURONIUM INJ 50 MG/5 ML SYRINGE IV PUSH ONE; -SODIUM CHLORID 0.9% 500 ML INJ 500 ML IV ONE; -SODIUM CHLORIDE 0.9% 20 ML VIAL IV ONE; -SUCCINYLCHOLINE CHLORIDE 100 MG/5 ML SYRINGE IV PUSH ONE; +WHEELCHAIR RENTAL RA; +WHEEMIS3; +XARE10TA PO; +Z.0.COMMODE-3:1; +Z.0.WHEELSTD; -ceFAZolin INJ 1,000 MG VIAL IV ONE; -ePHEDrine/NS 25 MG/5 ML SYR IM ONE; -ePHEDrine/NS 25 MG/5 ML SYR IV ONE
[2017-03-21] MEDS ORDERED: CLINDAMYCIN INJ 900 MG in SODIUM CHLORIDE 0.9% INJ 100 ML IV ONE (13:15)
[2017-03-21 13:20] VITALS: BP 120/66; PULSE 86; RESP 18; TEMP 98.2; O2SAT 100
[2017-03-21 13:48] LABS: AUTOMATED NEUTROPHIL # 3.4 TH/MM3 (1.8-7.7); BASOPHIL % 0.5 % (0.0-2.0); EOSINOPHIL # 0.1 TH/MM3 (0-0.4); EOSINOPHIL % 1.6 % (0.0-4.0); HEMATOCRIT 33.6 % (39.0-51.0); HEMO FLAGS DIFF FINAL; LYMPH % 17.9 % (9.0-44.0); LYMPHOCYTE # 0.9 TH/MM3 (1.0-4.8); MEAN CELL VOLUME 88.4 FL (80.0-100.0); MEAN CORPUSCULAR HEMOGLOBIN 29.8 PG (27.0-34.0); MEAN CORPUSCULAR HGB CONC 33.7 % (32.0-36.0); MONO % 12.3 % (0.0-8.0); NEUT % 67.7 % (16.0-70.0); PLATELET COUNT 236 TH/MM3 (150-450); RED CELL DISTRIBUTION WIDTH 14.5 % (11.6-17.2)
[2017-03-21 14:27] LABS: BICARBONATE 31.2 MEQ/L (21.0-32.0)
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
[2017-03-21] MEDS ORDERED: LACTULOSE SYRUP 20 GM/30 ML CUP PO PRN (18:30)
[2017-03-21] MEDS ORDERED: ZOLPIDEM TARTRATE 5 MG TAB PO PRN (18:30)
[2017-03-21] MEDS ORDERED: MAGNESIUM HYDROXIDE SUSP 30 ML CUP PO PRN (18:30)
[2017-03-21] MEDS ORDERED: cloNIDine HCL 0.1 MG TAB PO PRN (18:30)
[2017-03-21] MEDS ORDERED: SODIUM CHLORIDE 0.9% FLUSH 10 ML FLUSH IV FLUSH PRN (18:30)
[2017-03-21] MEDS ORDERED: MORPHINE SULFATE 4 MG/ML INJ IV PUSH PRN ×3 (18:30)
[2017-03-21] MEDS ORDERED: Vancomycin Consult Pharmacy 1 EA OTHER SCH (18:30)
[2017-03-21] MEDS ORDERED: VANCOMYCIN INJ 1,000 MG in SODIUM CHLOR 0.9% 250 ML INJ 250 ML IV SCH (18:30)
[2017-03-21] MEDS ORDERED: PROCHLORPERAZINE 25 MG SUPP RECTAL PRN (18:30)
[2017-03-21] MEDS ORDERED: ACETAMINOPHEN 325 MG TAB PO PRN ×2 (18:30)
[2017-03-21] MEDS ORDERED: NALOXONE HCL 0.4 MG/ML AMP IV PUSH PRN (18:30)
[2017-03-21] MEDS ORDERED: BISACODYL 10 MG SUPP RECTAL PRN (18:30)
[2017-03-21] MEDS ORDERED: METHOCARBAMOL 500 MG TAB PO PRN (18:30)
[2017-03-21] MEDS ORDERED: SENNOSIDES 8.6 MG TAB PO PRN (18:30)
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
[2017-03-21 18:51] VITALS: BP 117/71; PULSE 89; RESP 16; O2SAT 98
[2017-03-21] MEDS ORDERED: VANCOMYCIN INJ 2,000 MG in SODIUM CHLORID 0.9% 500 ML INJ 500 ML IV ONE (19:00)
[2017-03-21] MEDS ORDERED: VANCOMYCIN INJ 2,000 MG in SODIUM CHLORID 0.9% 500 ML INJ 500 ML IV SCH (19:00)
[2017-03-21] MEDS: SODIUM CHLOR 0.9% 1000 ML INJ 1,000 ML IV SCH (19:48)
[2017-03-21] MEDS: oxyCODONE/ACETAMINOPHEN 10 MG/325 MG TAB PO SCH ×2 (19:50→23:13)
[2017-03-21] MEDS: PIPERACIL-TAZO 4.5 GM PREMIX 100 ML IV SCH (20:04)
[2017-03-21 20:36] VITALS: BP 117/55; PULSE 85; RESP 18; TEMP 98.4; O2SAT 96
[2017-03-21] MEDS: FAMOTIDINE 20 MG TAB PO SCH (20:42)
[2017-03-21] MEDS: MAGNESIUM HYDROXIDE SUSP 30 ML CUP PO SCH (20:42)
[2017-03-21] MEDS: PREGABALIN 75 MG CAP PO SCH (20:42)
[2017-03-21] MEDS: DOCUSATE SODIUM 50 MG/SENNA 8.6 MG TAB PO SCH (20:43)
[2017-03-21] MEDS: SODIUM CHLORIDE 0.9% FLUSH 10 ML FLUSH IV FLUSH SCH (20:43)
[2017-03-21] MEDS: fentaNYL 75 MCG/HR PATCH T-DERMAL SCH (20:46)
[2017-03-21] MEDS ORDERED: DOCUSATE SODIUM 50 MG/SENNA 8.6 MG TAB PO SCH (21:00)
[2017-03-21] MEDS: MELATONIN 5 MG TAB PO SCH (22:03)
[2017-03-21 23:24] VITALS: BP 112/58; PULSE 84; RESP 18; TEMP 96.7; O2SAT 97
[2017-03-22] MEDS: PIPERACIL-TAZO 4.5 GM PREMIX 100 ML IV SCH ×4 (01:17→19:00)
[2017-03-22] MEDS: VANCOMYCIN INJ 1,250 MG in SODIUM CHLOR 0.9% 250 ML INJ 250 ML IV SCH ×2 (02:19→11:48)
[2017-03-22] MEDS: oxyCODONE/ACETAMINOPHEN 10 MG/325 MG TAB PO SCH ×7 (02:19→21:03)
[2017-03-22] MEDS ORDERED: CHLORHEXIDINE GLUCONATE 2 % 1 PACK (2 CLOTHS) TOPICAL PRN (02:30)
[2017-03-22] MEDS ORDERED: METOPROLOL TARTRATE 25 MG TAB PO PRN (02:30)
[2017-03-22] MEDS ORDERED: POVIDONE IODINE 5% (ANTISEPSIS KIT) 4 APPLICATIONS EACH NARE PRN (02:30)
[2017-03-22] MEDS ORDERED: LACTATED RINGER'S 1000 ML IV PRN (02:30)
[2017-03-22] MEDS ORDERED: SODIUM CHLORID 0.9% 500 ML IV PRN (02:30)
[2017-03-22 03:24] VITALS: BP 107/56; PULSE 86; RESP 18; TEMP 97.8; O2SAT 98
[2017-03-22] MEDS: SODIUM CHLOR 0.9% 1000 ML INJ 1,000 ML IV SCH ×3 (04:17→21:04)
[2017-03-22 08:00] VITALS: BP 117/58; PULSE 94; RESP 18; TEMP 97.6; O2SAT 95
[2017-03-22] MEDS: SODIUM CHLORIDE 0.9% FLUSH 10 ML FLUSH IV FLUSH SCH ×2 (08:58→21:00)
[2017-03-22] MEDS: PREGABALIN 75 MG CAP PO SCH ×2 (08:58→21:02)
[2017-03-22] MEDS: MAGNESIUM HYDROXIDE SUSP 30 ML CUP PO SCH ×2 (08:59→21:00)
[2017-03-22] MEDS: DOCUSATE SODIUM 50 MG/SENNA 8.6 MG TAB PO SCH ×2 (08:59→21:02)
[2017-03-22] MEDS: FAMOTIDINE 20 MG TAB PO SCH ×2 (08:59→21:03)
--- NOTE | 2017-03-22 09:22 | PD.ORT.PN ---
Subjective Subjective Remarks Readmission to hospital due to open wound over left elbow. Was at [facility]. Objective Vitals Vital Signs Date Time Temp Pulse Resp B/P (MAP) Pulse Ox O2 Delivery O2 Flow Rate FiO2 03/22/17 03:24 97.8 86 18 107/56 (73) 98 03/22/17 00:48 21 03/21/17 23:24 96.7 84 18 112/58 (76) 97 03/21/17 20:36 98.4 85 18 117/55 (75) 96 03/21/17 19:12 03/21/17 18:51 89 16 117/71 (86) 98 Room Air 03/21/17 13:23 100 Room Air 03/21/17 13:20 98.2 86 18 120/66 (84) 100 I/O 03/21/17 03/21/17 03/21/17 03/22/17 03/22/17 03/22/17 07:00 15:00 23:00 07:00 15:00 23:00 Intake Total 696 ml 460 ml Balance 696 ml 460 ml Intake Oral 240 ml 360 ml IV Total 456 ml 100 ml # Voids 0 4 # Bowel Movements 0 0 Result Diagram: 03/21/17 1330 03/21/17 1330 Imaging Last 72 hours Impressions Humerus X-Ray 03/21/17 0000 Signed Impressions: Service Date/Time: Tuesday, March 21, 2017 14:29 - CONCLUSION: 1. Stable internal fixation of the distal humerus. 2. No new or acute fracture or joint dislocation is demonstrated. Scout Win MD Elbow X-Ray 03/21/17 0000 Signed Impressions: Service Date/Time: Tuesday, March 21, 2017 14:33 - CONCLUSION: No significant change compared to the prior exam area Scout Win MD Objective Remarks Left upper extremity: Arm splint as well as wrist and fracture fracture splint. Splint is taken down showing dehisced skin over olecranon plate. Screw head is visible. Distally he has intact sensation in all his fingers he has good capillary refills Assessment & Plan Assessment and Plan Dehiscence of left elbow. We will plan on irrigation and debridement of left elbow with skin closure. Nothing by mouth Sign consents Procedures 1. Irrigation debridement left elbow with application of external fixator (Ferrari) 2. Irrigation and debridement with intramedullary belinda fixation right femur 02/18 (Vega) 3. Severely comminuted left distal humerus fracture with external fixation with open reduction internal fixation with olecranon osteotomy 02/22/17 (Oli) 4. Bilateral Ankle fractures s/p ORIF -02/24/2017 (Oli) Objective Remarks Right upper extremity:+thumb spica splint intact. nvi Right lower extremity: Clean dry dressings over femur. Short leg splint intact. Is able to move all toes appropriately good capillary refills. Left lower extremity: Short leg splint in place. Intact sensation distally is able to move all toes. Good capillary refills. Gian Lazcano Jr. Mar 22, 2017 09:22
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
[2017-03-22] MEDS ORDERED: ACETAMINOPHEN 1000 MG/100 ML 100 ML IV ONE (10:11)
[2017-03-22] MEDS ORDERED: GENTAMICIN SULFATE 80 MG/2 ML VIAL ONE (11:45)
--- NOTE | 2017-03-22 12:15 | PD.OP ---
cc: Deven Duncan MD Operative Report Date of Surgery: Mar 22, 2017 Preoperative Diagnosis: Open wound left elbow Postoperative Diagnosis: Procedure: Irrigation and debridement skin, subcutaneous tissue, fascia, and muscle left elbow Closure left elbow wound Application wound VAC dressing Anesthesia: Gen. Surgeon: Deven Ducnan Breaker Machine Operator(s): ROSE Andres PA-C The surgical procedure was assisted by my physician physiotherapy assistant. My P.A. presence was necessary throughout this case for the manipulation and positioning of the surgical extremity. My P.A. was assisting me throughout the duration of this procedure. The skill set of a physician physiotherapy assistant was medically necessary to complete this procedure. During the surgical case the restoration technician was working at the back table and the physician physiotherapy assistant was directly assisting me. Operation and Findings: Sergio is well-known to me from multiple injuries including severely comminuted left distal humerus fractures treated with open reduction internal fixation. He presented emergency room yesterday evening with open wound and exposed hardware. Informed consent was obtained and operative site was marked. He was brought to operating room. He was given IV sedation and general anesthesia. He is already on scheduled antibiotics. Left arm was prepped with alcohol followed by Hibiclens and draped usual sterile fashion. Timeout procedure was performed. Procedure began with debridement of the wound. The incision was extended proximally and distally. Full-thickness flaps were excised sharply using a scalpel. An excisional debridement was performed. Skin subcutaneous tissue fascia and muscle were sharply debrided. Curettes and rongeurs were used to aid in debridement. Cultures were obtained from deep tissue. At this point. Lavage was used to thoroughly irrigate soft tissue, hardware, and bone. At this point the wound appeared to be clean. Next attention turned to wound closure. Subcutaneous tissues closed with 3-0 PDS. Skin was closed with 3-0 nylon. A combination of retention suture and vertical mattress suture were utilized. Skin was completely closable. At this point a wound VAC dressing was applied. Skin was covered with Adaptic. VAC dressing was sealed. Sterile dressings were applied. A long-arm splint was applied. Patient was awakened and transferred to recovery room in stable condition. Deven Duncan MD Mar 22, 2017 12:15
[2017-03-22] MEDS ORDERED: DO NOT ADM ANY ANTICOAGULANT DRUGS PRN (12:47)
[2017-03-22] MEDS ORDERED: *morphine SULFATE 8 MG/ML PERIprocedure ONLY ONE ×2 (12:50→13:03)
[2017-03-22] MEDS: LACTATED RINGER'S 1000 ML INJ 1,000 ML IV SCH ×2 (14:59→21:04)
[2017-03-22 16:00] VITALS: BP 112/67; PULSE 78; RESP 18; TEMP 99.1; O2SAT 98
[2017-03-22] MEDS ORDERED: PHARMACY ORDERED LAB ONE (18:45)
[2017-03-22 20:59] VITALS: BP 104/58; PULSE 86; RESP 18; TEMP 98.7; O2SAT 92
[2017-03-22] MEDS: MELATONIN 5 MG TAB PO SCH (21:03)
[2017-03-22 23:27] VITALS: BP 103/66; PULSE 79; RESP 18; TEMP 98.7; O2SAT 94
[2017-03-23] MEDS: oxyCODONE/ACETAMINOPHEN 10 MG/325 MG TAB PO SCH ×9 (00:15→23:39)
[2017-03-23] MEDS: PIPERACIL-TAZO 4.5 GM PREMIX 100 ML IV SCH ×5 (00:15→23:40)
[2017-03-23] MEDS ORDERED: diphenhydrAMINE HCL 50 MG CAP PO ONE (00:45)
[2017-03-23 04:10] VITALS: BP 100/59; PULSE 76; RESP 18; TEMP 96.7; O2SAT 99
--- NOTE | 2017-03-23 06:57 | PD.ORT.PN ---
Subjective Subjective Remarks POD 1 s/p I&D with wound closure and incisional vac dressing left elbow s/p right femur IMN s/p left distal humerus ORIF and olecranon osteotomy s/p left hand fx s/p right thumb pinning s/p ORIF bilateral ankles -doing well. pain controlled Objective Vitals Vital Signs Date Time Temp Pulse Resp B/P (MAP) Pulse Ox O2 Delivery O2 Flow Rate FiO2 03/22/17 23:27 98.7 79 18 103/66 (78) 94 03/22/17 20:59 98.7 86 18 104/58 (73) 92 03/22/17 16:00 99.1 78 18 112/67 (82) 98 03/22/17 13:30 77 20 112/61 (78) 96 Room Air 03/22/17 13:15 76 20 117/60 (79) 96 Room Air 03/22/17 13:00 80 24 117/65 (82) 95 Room Air 03/22/17 12:46 98.3 97 24 126/73 (90) 100 Room Air 03/22/17 08:00 97.6 94 18 117/58 (77) 95 I/O 03/22/17 03/22/17 03/22/17 03/23/17 03/23/17 03/23/17 07:00 15:00 23:00 07:00 15:00 23:00 Intake Total 460 ml 240 ml 820 ml Balance 460 ml 240 ml 820 ml Intake Oral 360 ml 240 ml 720 ml IV Total 100 ml 100 ml # Voids 4 3 3 # Bowel Movements 0 0 0 Result Diagram: 03/21/17 1330 03/21/17 1330 Imaging Last 72 hours Impressions Humerus X-Ray 03/21/17 0000 Signed Impressions: Service Date/Time: Tuesday, March 21, 2017 14:29 - CONCLUSION: 1. Stable internal fixation of the distal humerus. 2. No new or acute fracture or joint dislocation is demonstrated. Scout Win MD Elbow X-Ray 03/21/17 0000 Signed Impressions: Service Date/Time: Tuesday, March 21, 2017 14:33 - CONCLUSION: No significant change compared to the prior exam area Scout Win MD Objective Remarks LUE: +long arm splint. intact. +vac. good seal. nvi. LLE: +splint. intact. nvi RLE: +spilnt. intact. nvi Assessment & Plan Assessment and Plan NWB to BLE and LUE maintain splint and vac on LUE will monitor cultures and tailor Abx appropriately will order xrays of all affected body parts today consult Dr Casas to eval right thumb since performed surgery on it Procedures 1. Irrigation debridement left elbow with application of external fixator (Ferrari) 2. Irrigation and debridement with intramedullary belinda fixation right femur 02/18 (Ferrari) 3. Severely comminuted left distal humerus fracture with external fixation with open reduction internal fixation with olecranon osteotomy 02/22/17 (Oli) 4. Bilateral Ankle fractures s/p ORIF -02/24/2017 (Oli) 5. I&D with wound closure and incisional vac placement left elbow - 03/22/17 ( Oli) 6. Pinning of right thumb by Daniel Canela/Laboratory Immunologist REGINO Mar 23, 2017 06:57
[2017-03-23 08:00] VITALS: BP 103/58; PULSE 83; RESP 18; TEMP 97.6; O2SAT 96
[2017-03-23] MEDS: FAMOTIDINE 20 MG TAB PO SCH ×2 (08:56→21:00)
[2017-03-23] MEDS: MAGNESIUM HYDROXIDE SUSP 30 ML CUP PO SCH ×2 (08:56→21:00)
[2017-03-23] MEDS: PREGABALIN 75 MG CAP PO SCH ×2 (08:56→20:59)
[2017-03-23] MEDS: DOCUSATE SODIUM 50 MG/SENNA 8.6 MG TAB PO SCH ×2 (08:56→20:59)
[2017-03-23] MEDS: SODIUM CHLORIDE 0.9% FLUSH 10 ML FLUSH IV FLUSH SCH ×2 (08:59→21:00)
[2017-03-23] MEDS ORDERED: PHARMACY ORDERED LAB ONE (09:45)
[2017-03-23] MEDS: LACTATED RINGER'S 1000 ML INJ 1,000 ML IV SCH ×3 (10:00→22:42)
[2017-03-23] MEDS ORDERED: VANCOMYCIN INJ 1,250 MG in SODIUM CHLOR 0.9% 250 ML INJ 250 ML IV SCH (10:00)
[2017-03-23] MEDS: SODIUM CHLOR 0.9% 1000 ML INJ 1,000 ML IV SCH ×3 (10:17→22:42)
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
--- NOTE | 2017-03-23 11:19 | RADRPT ---
EXAM DATE/TIME: 03/23/2017 10:04 [facility] COMPARISON: ANKLE LEFT COMPLETE ([id number]), March 08, 2017, 11:01. INDICATIONS : Evaluate left ankle fracture. MEDICAL HISTORY : L1-2 fracture. SURGICAL HISTORY : Multiple orthopedic surgeries. Pelvis reconstruction. IVC filter. ENCOUNTER: Subsequent ACUITY: 2 months PAIN SCORE: 0/10 LOCATION: Left ankle. FINDINGS: Three view exam was performed of the left ankle. Bimalleolar fracture secured with a side plate and o sseous screws laterally into osseous screws medially. Fracture fragments are anatomic in alignment an d the ankle mortise is preserved. There is very little osseous bridging across the fracture fragments , however. CONCLUSION: 1. Open reduction and internal fixation of bimalleolar fractures are stable. Fracture fragments are i n anatomic alignment. 2. However, there appears to be very little bony bridging across the fracture fragments. Giorgi Dorantes MD on March 23, 2017 at 10:59 Board Certified Radiologist. This report was verified electronically.
--- NOTE | 2017-03-23 11:51 | RADRPT ---
EXAM DATE/TIME: 03/23/2017 10:07 [facility] COMPARISON: ANKLE RIGHT COMPLETE ([id number]), March 08, 2017, 11:04. INDICATIONS : Evaluate right ankle fracture. MEDICAL HISTORY : L1-2 fracture. SURGICAL HISTORY : Multiple orthopedic surgeries. Pelvis reconstruction. IVC filter. ENCOUNTER: Subsequent ACUITY: 3 months PAIN SCORE: 0/10 LOCATION: Right ankle. FINDINGS: Three view exam was performed of the right ankle. Sideplat osseous screws secure the lateral malleola r fracture. Hardware is intact and the ankle mortise remains symmetric. Very little bony bridging acr oss the fracture fragments. Anatomic detail is somewhat limited by overlying splint material. Of note , there appears to be a comminuted fracture through the distal diaphysis of the fifth metatarsal on t he prior exam. This is barely identified on a single projection on the current exam but I believe the fracture persists. CONCLUSION: 1. Sideplat osseous procedure the distal fibular fracture. Ankle mortise remains symmetric and fractu re fragments are in anatomic alignment. 2. Very little bony bridging across the fracture fragments. 3. Apparent comminuted fracture through the distal diaphysis of the fifth metatarsal. Recommend dedic ated views of the foot for further characterization. Giorgi Dorantes MD on March 23, 2017 at 11:45 Board Certified Radiologist. This report was verified electronically.
--- NOTE | 2017-03-23 11:54 | RADRPT ---
EXAM DATE/TIME: 03/23/2017 10:11 [facility] COMPARISON: HAND RIGHT COMPLETE ([id number]), February 23, 2017, 18:19. INDICATIONS : Evalute right hand fracture. MEDICAL HISTORY : L1-2 fracture. SURGICAL HISTORY : Multiple orthopedic surgeries. Pelvis reconstruction. IVC filter. ENCOUNTER: Subsequent ACUITY: 2 months PAIN SCORE: 0/10 LOCATION: Right hand. FINDINGS: Three view examination of the right hand demonstrates interval relocation of the previously dislocate d first CMC joint. Joint is secured with 2 K wires. A small osseous fragment at the base of the fifth metacarpal is unchanged. Again, no obvious donor site. CONCLUSION: 1. Interval reduction and fixation of the previous first CMC dislocation. 2. Small osseous fragment adjacent to the ulnar base of the fifth metacarpal is again identified. No actual donor site identified, however. Giorgi Dorantes MD on March 23, 2017 at 11:49 Board Certified Radiologist. This report was verified electronically.
--- NOTE | 2017-03-23 11:59 | RADRPT ---
EXAM DATE/TIME: 03/23/2017 10:15 [facility] COMPARISON: HAND LEFT COMPLETE ([id number]), March 08, 2017, 11:10. INDICATIONS : Evalute left hand fracture. MEDICAL HISTORY : L1-2 fractrure. SURGICAL HISTORY : Multiple orthopedic surgeries. Pelvis reconstruction. IVC filter. ENCOUNTER: Initial ACUITY: 2 months PAIN SCORE: 0/10 LOCATION: Left hand. FINDINGS: Three view examination of the left hand demonstrates persistent fractures through the diaphysis of th e third metacarpal and base of the fifth metacarpal. Injury to the third digit is comminuted with vol ar angulation. The fifth metacarpal injury is nondisplaced. Very little bony bridging across either f ragment. Also noted is an avulsion fracture of the ulnar styloid. Fracture through the distal radius with intr a-articular extension is unchanged. CONCLUSION: 1. Stable fractures of the third and fifth metacarpals. Again, the third metacarpal diaphyseal fractu re is comminuted with volar angulation. No significant bony bridging across either fragment. 2. Stable avulsion fracture of the ulnar styloid and stable fracture of the distal radius with intra- articular extension. Again, no significant bony bridging. Giorgi Dorantes MD on March 23, 2017 at 11:52 Board Certified Radiologist. This report was verified electronically.
[2017-03-23 12:00] VITALS: BP 128/63; PULSE 74; RESP 18; TEMP 97.1; O2SAT 100
[2017-03-23 12:04] LABS: AUTOMATED NEUTROPHIL # 1.3 TH/MM3 (1.8-7.7); BASOPHIL % 0.3 % (0.0-2.0); EOSINOPHIL # 0.1 TH/MM3 (0-0.4); EOSINOPHIL % 1.8 % (0.0-4.0); HEMATOCRIT 29.7 % (39.0-51.0); HEMO FLAGS DIFF FINAL; LYMPH % 39.9 % (9.0-44.0); LYMPHOCYTE # 1.2 TH/MM3 (1.0-4.8); MEAN CELL VOLUME 87.5 FL (80.0-100.0); MEAN CORPUSCULAR HEMOGLOBIN 29.4 PG (27.0-34.0); MEAN CORPUSCULAR HGB CONC 33.6 % (32.0-36.0); MONO % 16.7 % (0.0-8.0); NEUT % 41.3 % (16.0-70.0); PLATELET COUNT 183 TH/MM3 (150-450); RED BLOOD COUNT 3.39 MIL/MM3 (4.50-5.90); RED CELL DISTRIBUTION WIDTH 14.1 % (11.6-17.2); WHITE BLOOD COUNT 3.1 TH/MM3 (4.0-11.0)
--- NOTE | 2017-03-23 12:07 | RADRPT ---
EXAM DATE/TIME: 03/23/2017 10:18 [facility] COMPARISON: ELBOW LEFT LIMITED (AP & LAT), February 22, 2017, 11:05. INDICATIONS : Evaluate left elbow fracture. MEDICAL HISTORY : L1-2 fracture. SURGICAL HISTORY : Multiple orthopedic surgeries. Pelvis reconstruction. IVC filter. ENCOUNTER: Subsequent ACUITY: 2 months PAIN SCORE: 7/10 LOCATION: Left elbow. FINDINGS: Two view examination of the left elbow demonstrates multiple side plates and osseous screws securing the distal humeral and proximal ulnar/olecranon fractures. In the distal humerus, there appears to be extensive bony resorption of some of the fracture fragments and the bony bridging across the remaini ng humeral fragments is extremely limited. Wound VAC overlies the posterior aspect of the elbow. Hard santillan appears to be intact. I do believe that there is some bony bridging across the olecranon fractur e. CONCLUSION: 1. 2 sideplates and osseous screws through the distal humeral fracture with bony resorption of some o f the fracture fragments and very little bony bridging across the main fracture components. While thi s may simply represent nonunion, an element of osteomyelitis cannot be excluded based on plain film f indings. 2. Sideplate and osseous screws secure the olecranon fracture. There appears to be some early bony br idging the fracture line does persist. 3. A wound VAC is identified along the posterior aspect of the elbow Giorgi Dorantes MD on March 23, 2017 at 11:57 Board Certified Radiologist. This report was verified electronically.
--- NOTE | 2017-03-23 12:09 | RADRPT ---
EXAM DATE/TIME: 03/23/2017 10:31 [facility] COMPARISON: FEMUR RIGHT (AP & LAT/2VWS), March 08, 2017, 11:27. INDICATIONS : Evalute right femur fracture. MEDICAL HISTORY : L1-2 fracture. SURGICAL HISTORY : Multiple orthopedic surgeries. Pelvis reconstruction. IVC filter. ENCOUNTER: Subsequent ACUITY: 2 months PAIN SCORE: 0/10 LOCATION: Right femur. FINDINGS: Two view examination of the right femur demonstrates medullary belinda and compression screw securing a p roximal femoral diaphyseal fracture. Approximately one cortical thickness medial displacement of the distal fragment with stable varus angulation. There appears to be some callus formation in the adjace nt soft tissues but no significant bony bridging across the fracture fragments. Extensive sideplate a nd osseous screws secure the pelvic rim. CONCLUSION: 1. Right proximal femoral fracture secured with medullary belinda and compression screw. 2. Nonunion of the fracture fragments with one cortical thickness medial displacement and varus angul ation of the distal fragment Giorgi Dorantes MD on March 23, 2017 at 12:05 Board Certified Radiologist. This report was verified electronically.
[2017-03-23 12:15] LABS: ANION GAP 7 MEQ/L (5-15); AST (GOT) 18 U/L (15-37); BICARBONATE 30.5 MEQ/L (21.0-32.0); BLOOD UREA NITROGEN 6 MG/DL (7-18); CHLORIDE 99 MEQ/L (98-107); GLOMERULAR FILTRATION RATE 170 ML/MIN (>89); MAGNESIUM 1.7 MG/DL (1.5-2.5); POTASSIUM 3.2 MEQ/L (3.5-5.1); SODIUM (NA) 136 MEQ/L (136-145)
[2017-03-23 12:24] LABS: ALKALINE PHOSPHATASE 133 U/L (45-117); ALT (GPT) 17 U/L (12-78); FREE T4 1.31 NG/DL (0.76-1.46); TOTAL BILIRUBIN ADULT 0.3 MG/DL (0.2-1.0)
[2017-03-23] MEDS: ENOXAPARIN SODIUM 40 MG/0.4 ML SYRINGE SQ SCH (13:14)
[2017-03-23 13:30] LABS: HEMOGLOBIN A1a 0.8 %; HEMOGLOBIN A1b 0.6 %; HEMOGLOBIN F 0.7 %; HEMOGLOBIN LA1C 1.7 %
[2017-03-23 20:22] VITALS: BP 127/57; PULSE 92; RESP 19; TEMP 97.3; O2SAT 95
[2017-03-23] MEDS: MELATONIN 5 MG TAB PO SCH (21:00)
[2017-03-23] MEDS: VANCOMYCIN INJ 1,250 MG in SODIUM CHLOR 0.9% 250 ML INJ 250 ML IV SCH (21:01)
[2017-03-24] VITALS (7 sets, daily range): BP systolic 108–144; BP diastolic 54–79; PULSE 88–105; RESP 16–18; TEMP 97.1–100.5; O2SAT 93–98
[2017-03-24] MEDS: oxyCODONE/ACETAMINOPHEN 10 MG/325 MG TAB PO SCH ×8 (02:58→23:09)
[2017-03-24] MEDS: VANCOMYCIN INJ 1,250 MG in SODIUM CHLOR 0.9% 250 ML INJ 250 ML IV SCH ×2 (02:58→12:00)
[2017-03-24] MEDS: PIPERACIL-TAZO 4.5 GM PREMIX 100 ML IV SCH ×2 (06:18→13:00)
--- NOTE | 2017-03-24 06:52 | PD.ORT.PN ---
Subjective Subjective Remarks POD 2 s/p I&D with wound closure and incisional vac dressing left elbow s/p right femur IMN s/p left distal humerus ORIF and olecranon osteotomy s/p left hand fx s/p right thumb pinning s/p ORIF bilateral ankles -doing well. pain controlled Objective Vitals Vital Signs Date Time Temp Pulse Resp B/P (MAP) Pulse Ox O2 Delivery O2 Flow Rate FiO2 03/24/17 00:17 97.1 99 18 108/56 (73) 95 03/23/17 20:22 97.3 92 19 127/57 (80) 95 03/23/17 12:19 21 03/23/17 12:00 97.1 74 18 128/63 (84) 100 03/23/17 08:00 97.6 83 18 103/58 (73) 96 I/O 03/23/17 03/23/17 03/23/17 03/24/17 03/24/17 03/24/17 07:00 15:00 23:00 07:00 15:00 23:00 Intake Total 200 ml 1130 ml 480 ml 480 ml Output Total 0 ml 800 ml 0 ml Balance 200 ml 330 ml 480 ml 480 ml Intake Oral 1130 ml 480 ml 480 ml IV Total 200 ml Output Urine Total 800 ml Drainage Total 0 ml 0 ml 0 ml # Voids 2 4 2 # Bowel Movements 1 0 0 Result Diagram: 03/23/17 1135 03/23/17 1135 Imaging Last 72 hours Impressions Humerus X-Ray 03/21/17 0000 Signed Impressions: Service Date/Time: Tuesday, March 21, 2017 14:29 - CONCLUSION: 1. Stable internal fixation of the distal humerus. 2. No new or acute fracture or joint dislocation is demonstrated. Scout Win MD Elbow X-Ray 03/21/17 0000 Signed Impressions: Service Date/Time: Tuesday, March 21, 2017 14:33 - CONCLUSION: No significant change compared to the prior exam area Scout Win MD Objective Remarks LUE: +long arm splint. intact. +vac. good seal. nvi. LLE: +splint. intact. nvi RLE: +spilnt. intact. nvi Assessment & Plan Assessment and Plan NWB to BLE and LUE maintain splint and vac on LUE will monitor cultures and tailor Abx appropriately - positive for pseudomonas and gram neg rods will order xrays of all affected body parts today consult Dr Casas to eval right thumb since performed surgery on it plan to progress WB status on legs in 2 weeks consult infectious disease for IV Abx Procedures 1. Irrigation debridement left elbow with application of external fixator ([place]) 2. Irrigation and debridement with intramedullary belinda fixation right femur 02/18 ([place]) 3. Severely comminuted left distal humerus fracture with external fixation with open reduction internal fixation with olecranon osteotomy 02/22/17 ([place]) 4. Bilateral Ankle fractures s/p ORIF -02/24/2017 ([place]) 5. I&D with wound closure and incisional vac placement left elbow - 03/22/17 ( [place]) 6. Pinning of right thumb by Daniel Canela/[facility] Mar 24, 2017 06:51
[2017-03-24 07:26] LABS: AUTOMATED NEUTROPHIL # 1.6 TH/MM3 (1.8-7.7); BASOPHIL % 0.5 % (0.0-2.0); EOSINOPHIL % 0.9 % (0.0-4.0); HEMATOCRIT 26.5 % (39.0-51.0); HEMO FLAGS DIFF FINAL; LYMPH % 22.8 % (9.0-44.0); LYMPHOCYTE # 0.6 TH/MM3 (1.0-4.8); MEAN CELL VOLUME 87.5 FL (80.0-100.0); MEAN CORPUSCULAR HGB CONC 34.3 % (32.0-36.0); MONO % 12.6 % (0.0-8.0); NEUT % 63.2 % (16.0-70.0); PLATELET COUNT 148 TH/MM3 (150-450); RED BLOOD COUNT 3.03 MIL/MM3 (4.50-5.90); RED CELL DISTRIBUTION WIDTH 14.5 % (11.6-17.2); WHITE BLOOD COUNT 2.6 TH/MM3 (4.0-11.0)
[2017-03-24 07:47] LABS: BICARBONATE 28.3 MEQ/L (21.0-32.0); POTASSIUM 3.4 MEQ/L (3.5-5.1)
[2017-03-24] MEDS: DOCUSATE SODIUM 50 MG/SENNA 8.6 MG TAB PO SCH ×2 (08:35→20:14)
[2017-03-24] MEDS: PREGABALIN 75 MG CAP PO SCH ×2 (08:36→20:18)
[2017-03-24] MEDS: SODIUM CHLORIDE 0.9% FLUSH 10 ML FLUSH IV FLUSH SCH ×2 (08:36→20:17)
[2017-03-24] MEDS: FAMOTIDINE 20 MG TAB PO SCH ×2 (08:36→20:14)
[2017-03-24] MEDS: MAGNESIUM HYDROXIDE SUSP 30 ML CUP PO SCH ×2 (08:37→20:20)
[2017-03-24] MEDS ORDERED: PHARMACY ORDERED LAB ONE (11:45)
[2017-03-24] MEDS: ENOXAPARIN SODIUM 40 MG/0.4 ML SYRINGE SQ SCH (12:33)
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
--- NOTE | 2017-03-24 14:46 | RADRPT ---
EXAM DATE/TIME: 03/24/2017 14:27 [facility] COMPARISON: FEMUR RIGHT (AP & LAT/2VWS), March 23, 2017, 10:31. INDICATIONS : Picc line placement MEDICAL HISTORY : None. SURGICAL HISTORY : multiple orthopedic fractures. IVC filter ENCOUNTER: Initial ACUITY: 3 days PAIN SCORE: 0/10 LOCATION: Bilateral chest FINDINGS: A single view of the chest demonstrates the lungs to be symmetrically aerated without evidence of mas s, infiltrate or effusion. The cardiomediastinal contours are unremarkable. Osseous structures are intact. There is a PICC which enters from the right arm. The catheter tip overlies the SVC. CONCLUSION: 1. PICC in good position. Peter Harding MD on March 24, 2017 at 14:43 Board Certified Radiologist. This report was verified electronically.
[2017-03-24] MEDS ORDERED: SODIUM CHLORIDE 0.9% FLUSH 10 ML FLUSH IV FLUSH PRN (15:15)
[2017-03-24] MEDS: CEFEPIME INJ 2,000 MG in SODIUM CHLORIDE 0.9% INJ 100 ML IV SCH ×2 (17:28→23:05)
[2017-03-24] MEDS: LACTATED RINGER'S 1000 ML INJ 1,000 ML IV SCH (17:29)
[2017-03-24] MEDS: MELATONIN 5 MG TAB PO SCH (20:16)
[2017-03-24] MEDS: fentaNYL 75 MCG/HR PATCH T-DERMAL SCH (20:17)
[2017-03-25] VITALS (9 sets, daily range): BP systolic 116–148; BP diastolic 55–78; PULSE 84–94; RESP 16–17; TEMP 97.5–98.9; O2SAT 95–100
[2017-03-25] MEDS: oxyCODONE/ACETAMINOPHEN 10 MG/325 MG TAB PO SCH ×8 (02:06→23:21)
[2017-03-25] MEDS: LACTATED RINGER'S 1000 ML INJ 1,000 ML IV SCH ×2 (04:30→07:39)
[2017-03-25] MEDS: CEFEPIME INJ 2,000 MG in SODIUM CHLORIDE 0.9% INJ 100 ML IV SCH ×3 (06:25→23:22)
[2017-03-25] MEDS: SODIUM CHLORIDE 0.9% FLUSH 10 ML FLUSH IV FLUSH SCH ×3 (07:32→20:34)
[2017-03-25] MEDS: ONDANSETRON HCL 4 MG/2 ML VIAL IVP PRN (07:32)
[2017-03-25] MEDS: PREGABALIN 75 MG CAP PO SCH ×2 (07:34→20:33)
[2017-03-25] MEDS: FAMOTIDINE 20 MG TAB PO SCH ×2 (07:34→20:33)
[2017-03-25] MEDS: DOCUSATE SODIUM 50 MG/SENNA 8.6 MG TAB PO SCH ×2 (07:36→20:34)
[2017-03-25] MEDS: MAGNESIUM HYDROXIDE SUSP 30 ML CUP PO SCH ×2 (07:37→20:33)
[2017-03-25 07:49] LABS: AUTOMATED NEUTROPHIL # 0.7 TH/MM3 (1.8-7.7); BASOPHIL % 0.5 % (0.0-2.0); EOSINOPHIL % 1.5 % (0.0-4.0); HEMATOCRIT 28.6 % (39.0-51.0); LYMPH % 46.3 % (9.0-44.0); MEAN CELL VOLUME 87.8 FL (80.0-100.0); MEAN CORPUSCULAR HEMOGLOBIN 29.7 PG (27.0-34.0); MEAN CORPUSCULAR HGB CONC 33.8 % (32.0-36.0); MONO % 19.3 % (0.0-8.0); NEUT % 32.4 % (16.0-70.0); PLATELET COUNT 153 TH/MM3 (150-450); RED BLOOD COUNT 3.25 MIL/MM3 (4.50-5.90); RED CELL DISTRIBUTION WIDTH 14.4 % (11.6-17.2); WHITE BLOOD COUNT 2.2 TH/MM3 (4.0-11.0)
[2017-03-25 07:51] LABS: HEMO FLAGS AUTO DIFF
[2017-03-25 08:24] LABS: WESTERGREN SEDIMENTATION RATE 48 mm/hr (0-15)
[2017-03-25 08:30] LABS: BANDS 1 % (0-6); EOSINOPHILS 1 % (0-4); POLYS (SEG NEUTROPHILS) 44 % (16-70); WBC DIFF SAMPLE 100
[2017-03-25 08:31] LABS: PLATELET ESTIMATE SMEAR NORMAL (NORMAL); PLATELET MORPHOLOGY NORMAL (NORMAL); SCAN/DIFF FINAL DIFF MANUAL
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
[2017-03-25] MEDS: ENOXAPARIN SODIUM 40 MG/0.4 ML SYRINGE SQ SCH (11:18)
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
[2017-03-25] MEDS: MELATONIN 5 MG TAB PO SCH (20:33)
[2017-03-26] VITALS: BP 153/91; PULSE 99; RESP 17; TEMP 98.4; O2SAT 96
[2017-03-26] MEDS: oxyCODONE/ACETAMINOPHEN 10 MG/325 MG TAB PO SCH ×8 (01:49→23:53)
[2017-03-26 02:10] LABS: EBV VCA IgM Positive (Negative)
[2017-03-26] MEDS: CEFEPIME INJ 2,000 MG in SODIUM CHLORIDE 0.9% INJ 100 ML IV SCH ×3 (06:28→23:53)
[2017-03-26] MEDS: LACTATED RINGER'S 1000 ML INJ 1,000 ML IV SCH ×2 (07:34→13:46)
[2017-03-26 08:00] VITALS: BP 139/69; PULSE 81; RESP 18; TEMP 98.2; O2SAT 96
[2017-03-26] MEDS: FAMOTIDINE 20 MG TAB PO SCH ×2 (08:03→19:59)
[2017-03-26] MEDS: PREGABALIN 75 MG CAP PO SCH ×2 (08:03→19:59)
[2017-03-26] MEDS: SODIUM CHLORIDE 0.9% FLUSH 10 ML FLUSH IV FLUSH SCH ×3 (08:05→20:00)
[2017-03-26] MEDS: MAGNESIUM HYDROXIDE SUSP 30 ML CUP PO SCH ×2 (08:14→20:00)
[2017-03-26] MEDS: DOCUSATE SODIUM 50 MG/SENNA 8.6 MG TAB PO SCH ×2 (08:18→19:59)
--- NOTE | 2017-03-26 08:19 | PD.ORT.PN ---
Subjective Subjective Remarks POD 4 s/p I&D with wound closure and incisional vac dressing left elbow s/p right femur IMN s/p left distal humerus ORIF and olecranon osteotomy s/p left hand fx s/p right thumb pinning s/p ORIF bilateral ankles -doing well. reports significant pain in left elbow and arm Objective Vitals Vital Signs Date Time Temp Pulse Resp B/P (MAP) Pulse Ox O2 Delivery O2 Flow Rate FiO2 03/26/17 00:00 98.4 99 17 153/91 (111) 96 03/25/17 20:00 98.5 86 16 148/78 (101) 97 03/25/17 16:49 99 21 03/25/17 16:28 98.0 89 16 116/55 (75) 99 03/25/17 16:00 98.0 88 17 116/55 (75) 100 03/25/17 13:55 100 03/25/17 12:00 98.9 84 17 137/62 (87) 100 I/O 03/25/17 03/25/17 03/25/17 03/26/17 03/26/17 03/26/17 07:00 15:00 23:00 07:00 15:00 23:00 Intake Total 240 ml 420 ml 977 ml 820 ml Output Total 700 ml 0 ml 600 ml Balance -460 ml 420 ml 377 ml 820 ml Intake Oral 240 ml 420 ml 750 ml 720 ml IV Total 227 ml 100 ml Output Urine Total 700 ml 600 ml Drainage Total 0 ml # Voids 6 2 # Bowel Movements 1 3 Result Diagram: 03/25/17 0736 03/24/17 0630 Imaging Last 72 hours Impressions Humerus X-Ray 03/21/17 0000 Signed Impressions: Service Date/Time: Tuesday, March 21, 2017 14:29 - CONCLUSION: 1. Stable internal fixation of the distal humerus. 2. No new or acute fracture or joint dislocation is demonstrated. Scout Win MD Elbow X-Ray 03/21/17 0000 Signed Impressions: Service Date/Time: Tuesday, March 21, 2017 14:33 - CONCLUSION: No significant change compared to the prior exam area Scout Win MD Objective Remarks LUE: +long arm splint. intact. +vac. good seal. nvi. splint and vac removed. incision visualized. clean and dry. no drainage. no erythema. full sensation distally. LLE: +splint. intact. nvi RLE: +spilnt. intact. nvi Assessment & Plan Assessment and Plan NWB to STEVO ROBERTS vac DCd at bedside today patient resplinted on arm at bedside maintain splint at all times to bilateral ankles and left arm will plan to keep arm splinted for 1 more week if patient gets discharged, will want to follow up in office next . if still in hospital, will follow here plan for progression of weight bearing status of ankles next week infectious disease to arrange IV Abx Procedures 1. Irrigation debridement left elbow with application of external fixator (Vega) 2. Irrigation and debridement with intramedullary belinda fixation right femur 02/18 (Vega) 3. Severely comminuted left distal humerus fracture with external fixation with open reduction internal fixation with olecranon osteotomy 02/22/17 (Oli) 4. Bilateral Ankle fractures s/p ORIF -02/24/2017 (Oli) 5. I&D with wound closure and incisional vac placement left elbow - 03/22/17 ( Oli) 6. Pinning of right thumb by Daniel Canela/Telegraph Dispatcher PA Mar 26, 2017 08:19
[2017-03-26] MEDS: ONDANSETRON HCL 4 MG/2 ML VIAL IVP PRN ×2 (08:24→13:44)
[2017-03-26] MEDS: ENOXAPARIN SODIUM 40 MG/0.4 ML SYRINGE SQ SCH (11:18)
[2017-03-26 12:00] VITALS: BP 127/68; PULSE 74; RESP 18; TEMP 98.7; O2SAT 98
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
--- NOTE | 2017-03-26 12:19 | HHI.FF ---
cc: Karin Ruby MD, Dr Infusion Therapy Location of Infusion Therapy: [facility] IV Infusion Order Patient Information Patient Weight 73.2 kg Diagnosis: Diagnosis Infection L elbow, hx fractures, has hardware in place, C/S PSAE and Serratia Coded Allergies: No Known Allergies (Unverified Allergy, Unknown, 02/26/17) Administer Medication Cefepime 2 grams IV q 8 hours Can do IV push or CADD plus pump Stop Treatment: May 06, 2017 Additional Information Venous access: PICC Line Additional Instructions [x] Peripheral flush and dressing changes per protocol [x] Implanted port and central power lineman technician: * Implanted port: 10 ml Normal Saline followed by 5 ml Heparin 100 units/ml Heparin flush after each use and monthly to maintain. [] May leave port accessed during therapy. [] May leave peripheral site accessed for duration of therapy. [x] If patient has SOB or respiratory distress, check oxygen saturation. If less than 90% or clinical signs of respiratory distress, administer oxygen at 2 L/min. via nasal cannula and notify physician. [x] Anaphylaxis/Reaction orders: * Stop infusion. * Keep IV line open with saline flush. * Notify physician. * Monitor vital signs every 15 minutes until symptoms resolve. * Check Oxygen saturation; Oxygen at 2 L/min. via nasal cannula if less than 90% or clinical signs of respiratory distress. * Administer diphenhydramine (Benadryl) 25 mg IV STAT, (unless patient has received as pre-med). May repeat once, if necessary. * Solu-Cortef 250 mg IVP over 30-60 seconds, use 100 mg vials for each dissolution. * Epinephrine (1mg/1 ml) 0.3 mg subcutaneously or IVP now with any signs of respiratory distress. * Check with physician for new additional pre-med orders if patient is re- challenged or re-treated. [x] May remove PICC line when treatment complete, after confirming with Physician. [x] If the patient is admitted to the hospital, the ED, or transferred via [facility] , complete transfer form including medication reconciliation order sheet. Laboratory Tests Weekly Labs: CBC w/diff, Creatinine, LFT's (Hepatic function test) (Labs every Wednesday - copy to me and Dr Ruby) Additional Information Please give office number Dr Karin Ruby - so he can make follow-up ID appointment the first week of April Elva Ngo MD Mar 26, 2017 12:19
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
[2017-03-26 14:17] LABS: AUTOMATED NEUTROPHIL # 0.8 TH/MM3 (1.8-7.7); BASOPHIL % 0.3 % (0.0-2.0); EOSINOPHIL % 1.7 % (0.0-4.0); HEMATOCRIT 30.3 % (39.0-51.0); LYMPH % 45.3 % (9.0-44.0); MEAN CELL VOLUME 87.5 FL (80.0-100.0); MEAN CORPUSCULAR HEMOGLOBIN 28.8 PG (27.0-34.0); MEAN CORPUSCULAR HGB CONC 32.9 % (32.0-36.0); MONO % 15.9 % (0.0-8.0); NEUT % 36.8 % (16.0-70.0); PLATELET COUNT 145 TH/MM3 (150-450); RED BLOOD COUNT 3.47 MIL/MM3 (4.50-5.90); WHITE BLOOD COUNT 2.1 TH/MM3 (4.0-11.0)
[2017-03-26 14:19] LABS: HEMO FLAGS AUTO DIFF
[2017-03-26 15:23] LABS: PLATELET ESTIMATE SMEAR NORMAL (NORMAL); PLATELET MORPHOLOGY NORMAL (NORMAL); SCAN/DIFF AUTO DIFF CONFIRMED
[2017-03-26 16:00] VITALS: BP 119/58; PULSE 84; RESP 18; TEMP 97.5; O2SAT 97
[2017-03-26] MEDS ORDERED: MORPHINE SULFATE 2 MG/ML INJ IV PUSH PRN (16:15)
[2017-03-26] MEDS: MELATONIN 5 MG TAB PO SCH (19:59)
[2017-03-26 20:00] VITALS: BP 154/69; PULSE 88; RESP 16; TEMP 97.9; O2SAT 98
[2017-03-27] VITALS: BP 150/83; PULSE 78; RESP 18; TEMP 96.5; O2SAT 98
[2017-03-27] MEDS: oxyCODONE/ACETAMINOPHEN 10 MG/325 MG TAB PO SCH ×8 (02:00→23:50)
[2017-03-27 03:31] VITALS: O2SAT 97
[2017-03-27] MEDS: CEFEPIME INJ 2,000 MG in SODIUM CHLORIDE 0.9% INJ 100 ML IV SCH ×3 (06:19→23:50)
[2017-03-27 07:38] VITALS: BP 131/71; PULSE 76; RESP 16; TEMP 97.8; O2SAT 97
[2017-03-27] MEDS: FAMOTIDINE 20 MG TAB PO SCH ×2 (08:59→21:05)
[2017-03-27] MEDS: DOCUSATE SODIUM 50 MG/SENNA 8.6 MG TAB PO SCH ×2 (08:59→21:05)
[2017-03-27] MEDS: PREGABALIN 75 MG CAP PO SCH ×2 (08:59→21:05)
[2017-03-27] MEDS: MAGNESIUM HYDROXIDE SUSP 30 ML CUP PO SCH ×2 (09:00→21:13)
[2017-03-27] MEDS: SODIUM CHLORIDE 0.9% FLUSH 10 ML FLUSH IV FLUSH SCH ×3 (09:00→21:07)
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
[2017-03-27 11:42] VITALS: BP 122/67; PULSE 75; RESP 16; TEMP 97.8; O2SAT 98
[2017-03-27] MEDS: ENOXAPARIN SODIUM 40 MG/0.4 ML SYRINGE SQ SCH (12:31)
[2017-03-27] MEDS: LACTATED RINGER'S 1000 ML INJ 1,000 ML IV SCH (14:00)
[2017-03-27 16:00] VITALS: BP 152/82; PULSE 82; RESP 16; TEMP 98.8; O2SAT 99
[2017-03-27 19:16] LABS: AUTOMATED NEUTROPHIL # 0.9 TH/MM3 (1.8-7.7); BASOPHIL % 0.3 % (0.0-2.0); EOSINOPHIL # 0.1 TH/MM3 (0-0.4); EOSINOPHIL % 2.1 % (0.0-4.0); HEMATOCRIT 28.5 % (39.0-51.0); LYMPH % 48.4 % (9.0-44.0); LYMPHOCYTE # 1.2 TH/MM3 (1.0-4.8); MEAN CELL VOLUME 87.3 FL (80.0-100.0); MEAN CORPUSCULAR HEMOGLOBIN 29.5 PG (27.0-34.0); MEAN CORPUSCULAR HGB CONC 33.8 % (32.0-36.0); MONO % 12.7 % (0.0-8.0); NEUT % 36.5 % (16.0-70.0); PLATELET COUNT 146 TH/MM3 (150-450); RED BLOOD COUNT 3.27 MIL/MM3 (4.50-5.90); RED CELL DISTRIBUTION WIDTH 14.2 % (11.6-17.2); WHITE BLOOD COUNT 2.5 TH/MM3 (4.0-11.0)
[2017-03-27 19:17] LABS: HEMO FLAGS AUTO DIFF
[2017-03-27 19:55] LABS: NEUTROPHIL # MANUAL DIFF 1.2 TH/MM3 (1.8-7.7); POLYS (SEG NEUTROPHILS) 48 % (16-70); SCAN/DIFF FINAL DIFF MANUAL; WBC DIFF SAMPLE 100
[2017-03-27 19:56] LABS: PLATELET ESTIMATE SMEAR LOW (NORMAL); PLATELET MORPHOLOGY NORMAL (NORMAL)
[2017-03-27 20:20] VITALS: BP 124/61; PULSE 79; RESP 18; TEMP 97.8; O2SAT 99
[2017-03-27] MEDS: MELATONIN 5 MG TAB PO SCH (21:05)
[2017-03-27] MEDS: fentaNYL 75 MCG/HR PATCH T-DERMAL SCH (21:07)
[2017-03-28 00:09] VITALS: BP 114/63; PULSE 66; RESP 18; TEMP 96.8; O2SAT 99
[2017-03-28] MEDS: oxyCODONE/ACETAMINOPHEN 10 MG/325 MG TAB PO SCH ×8 (02:55→23:31)
[2017-03-28] MEDS: CEFEPIME INJ 2,000 MG in SODIUM CHLORIDE 0.9% INJ 100 ML IV SCH ×3 (07:32→23:31)
[2017-03-28 07:52] VITALS: BP 125/61; PULSE 70; RESP 16; TEMP 96.6; O2SAT 98
[2017-03-28] MEDS: MAGNESIUM HYDROXIDE SUSP 30 ML CUP PO SCH ×2 (09:00→21:00)
[2017-03-28] MEDS: DOCUSATE SODIUM 50 MG/SENNA 8.6 MG TAB PO SCH ×2 (09:17→21:15)
[2017-03-28] MEDS: PREGABALIN 75 MG CAP PO SCH ×2 (09:17→21:16)
[2017-03-28] MEDS: FAMOTIDINE 20 MG TAB PO SCH ×2 (09:17→21:16)
[2017-03-28] MEDS: SODIUM CHLORIDE 0.9% FLUSH 10 ML FLUSH IV FLUSH SCH ×3 (09:17→21:16)
[2017-03-28] MEDS: LACTATED RINGER'S 1000 ML INJ 1,000 ML IV SCH ×3 (10:00→20:00)
[2017-03-28 10:46] VITALS: O2SAT 98
[2017-03-28 11:35] VITALS: BP 149/71; PULSE 75; RESP 16; TEMP 96.6; O2SAT 100
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
--- NOTE | 2017-03-28 11:40 | HHI.FF ---
Face to Face Verification Diagnosis: (1) Surgical wound dehiscence (2) Exposed orthopaedic hardware (3) Open fracture of t-y bicondylar distal end of left humerus (4) Type I or II open traumatic fracture of shaft of right femur Physical Therapy Order: Evaluate and Treat Home Health Nursing Order: Wound care and dressing changes IV medication administration I have seen patient Sergio Mixon on 03/28/17. My clinical findings support the need for the requested home health care services because: Ltd mobility - disease progression Injectable med education/admin I certify that my clinical findings support that this patient is homebound because: Post-op weakness Unsteady gait/balance Sourav Bridges MD Mar 28, 2017 11:40
[2017-03-28] MEDS: ONDANSETRON HCL 4 MG/2 ML VIAL IVP PRN ×2 (11:54→17:28)
[2017-03-28] MEDS: ENOXAPARIN SODIUM 40 MG/0.4 ML SYRINGE SQ SCH (13:24)
[2017-03-28 16:00] VITALS: BP 147/73; PULSE 65; RESP 16; TEMP 96.7; O2SAT 100
[2017-03-28 20:25] VITALS: BP 119/56; PULSE 79; RESP 18; TEMP 97.9; O2SAT 100
[2017-03-28] MEDS: MELATONIN 5 MG TAB PO SCH (21:14)
[2017-03-29 00:03] VITALS: BP 124/59; PULSE 81; RESP 18; TEMP 96.9; O2SAT 100
[2017-03-29] MEDS: oxyCODONE/ACETAMINOPHEN 10 MG/325 MG TAB PO SCH ×6 (02:18→18:35)
[2017-03-29] MEDS: LACTATED RINGER'S 1000 ML INJ 1,000 ML IV SCH ×2 (05:17→15:49)
[2017-03-29] MEDS: CEFEPIME INJ 2,000 MG in SODIUM CHLORIDE 0.9% INJ 100 ML IV SCH ×2 (07:29→15:48)
[2017-03-29 08:01] VITALS: BP 148/71; PULSE 57; RESP 18; TEMP 97.8; O2SAT 100
[2017-03-29] MEDS: PREGABALIN 75 MG CAP PO SCH (08:50)
[2017-03-29] MEDS: FAMOTIDINE 20 MG TAB PO SCH (08:50)
[2017-03-29] MEDS: DOCUSATE SODIUM 50 MG/SENNA 8.6 MG TAB PO SCH (08:50)
[2017-03-29] MEDS: MAGNESIUM HYDROXIDE SUSP 30 ML CUP PO SCH (08:50)
[2017-03-29] MEDS: SODIUM CHLORIDE 0.9% FLUSH 10 ML FLUSH IV FLUSH SCH ×2 (08:51)
[2017-03-29] MEDS ORDERED: MORPHINE SULFATE 2 MG/ML INJ IV PUSH PRN ×2 (10:00)
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
[2017-03-29 12:00] VITALS: BP 140/75; PULSE 61; RESP 18; TEMP 96.5; O2SAT 100
--- NOTE | 2017-03-29 12:01 | PD.ORT.PN ---
Subjective Subjective Remarks Resting comfortably no new complaints. Is planning on going back home today Objective Vitals Vital Signs Date Time Temp Pulse Resp B/P (MAP) Pulse Ox O2 Delivery O2 Flow Rate FiO2 03/29/17 09:50 16 03/29/17 09:50 16 03/29/17 08:01 97.8 57 18 148/71 (96) 100 03/29/17 00:03 96.9 81 18 124/59 (80) 100 03/28/17 22:00 Room Air 03/28/17 20:25 97.9 79 18 119/56 (77) 100 03/28/17 16:00 96.7 65 16 147/73 (97) 100 I/O 03/28/17 03/28/17 03/28/17 03/29/17 03/29/17 03/29/17 07:00 15:00 23:00 07:00 15:00 23:00 Intake Total 240 ml 200 ml 460 ml 340 ml Output Total 700 ml 400 ml 600 ml Balance -460 ml 200 ml 60 ml -260 ml Intake Oral 240 ml 360 ml 240 ml IV Total 200 ml 100 ml 100 ml Output Urine Total 700 ml 400 ml 600 ml # Bowel Movements 0 0 0 Result Diagram: 03/27/17 1847 Imaging Last 72 hours Impressions Humerus X-Ray 03/21/17 0000 Signed Impressions: Service Date/Time: Tuesday, March 21, 2017 14:29 - CONCLUSION: 1. Stable internal fixation of the distal humerus. 2. No new or acute fracture or joint dislocation is demonstrated. Scout Win MD Elbow X-Ray 03/21/17 0000 Signed Impressions: Service Date/Time: Tuesday, March 21, 2017 14:33 - CONCLUSION: No significant change compared to the prior exam area Scout Win MD Objective Remarks LUE: Splint taken down showing incisions over elbow continuing to healing well with no drainage. Sutures are position. No erythema. Significant tenderness to palpation over wrist. Wrist is resplinted with both a volar and ulnar gutter splint dressings are placed over the elbow with Xeroform 4 x 4's and Marco wrap LLE: +splint. intact. nvi RLE: +spilnt. intact. nvi Assessment & Plan Assessment and Plan NWB to BLE, LUE patient resplinted on arm at bedside maintain splint at all times to bilateral ankles and left arm Daily dressing changes to left elbow with Xeroform 4 x 4's and Marco wrap We'll plan on discharge follow-up in 2 weeks infectious disease to arrange IV Abx Procedures 1. Irrigation debridement left elbow with application of external fixator (Vega) 2. Irrigation and debridement with intramedullary belinda fixation right femur 02/18 (Vega) 3. Severely comminuted left distal humerus fracture with external fixation with open reduction internal fixation with olecranon osteotomy 02/22/17 (Oli) 4. Bilateral Ankle fractures s/p ORIF -02/24/2017 (Oli) 5. I&D with wound closure and incisional vac placement left elbow - 03/22/17 ( Oli) 6. Pinning of right thumb by Dr Augusto Lazcano,Gian LACY Mar 29, 2017 12:01
[2017-03-29] MEDS: ENOXAPARIN SODIUM 40 MG/0.4 ML SYRINGE SQ SCH (12:13)
[2017-03-29 16:00] VITALS: BP 141/72; PULSE 62; RESP 18; TEMP 97.2; O2SAT 100
[2017-03-29] MEDS ORDERED: FENT75T T-DERMAL (16:01)
[2017-03-29] MEDS ORDERED: OXYC1TAB63 PO (16:01)
--- NOTE | 2017-03-29 16:02 | HHI.DCPOC ---
Discharge Care Plan Diagnosis: (1) Surgical wound dehiscence Your Health Problems Are: Difficulty with ADL Incision/Drains Exercise Tolerance Loss of Movements Chronic Pain Goals to Promote Your Health * To prevent worsening of your condition and complications * To maintain your health at the optimal level Directions to Meet Your Goals Take your medications as prescribed Follow your dietary instruction Follow activity as directed Keep your appointments as scheduled Take your immunizations and boosters as scheduled If your symptoms worsen call your PCP, if no PCP go to Urgent Care Center or Emergency Room Smoking is Dangerous to Your Health. Avoid second hand smoke Call the 24-hour hour crisis hotline for domestic abuse at Gian Lopez DO Mar 29, 2017 16:02
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
[2017-03-31] MEDS ORDERED: FENT75T T-DERMAL (12:03)
[2017-03-31] MEDS ORDERED: LYRI75CA PO (15:14)
== END 2017-03-29 19:14 | disposition home health service (06) | DRG 908 ==
LOC: NEPC 12:55 → NEDA 17:41 → N06A 19:04
PROVIDERS: ADMIT Hospitalist; ATTEND Hospitalist
PROC: 0KB80ZZ Excision of Left Upper Arm Muscle, Open Approach (ICD-10-PCS; principal; 2017-03-22 11:12)
DX: T81.31XA Disruption of external operation (surgical) wound, not elsewhere classified, initial encounter (principal); T81.4XXA Infection following a procedure, initial encounter; D61.818 Other pancytopenia; B96.5 Pseudomonas (aeruginosa) (mallei) (pseudomallei) as the cause of diseases classified elsewhere; Z86.718 Personal history of other venous thrombosis and embolism; F90.9 Attention-deficit hyperactivity disorder, unspecified type; M16.11 Unilateral primary osteoarthritis, right hip; F41.9 Anxiety disorder, unspecified; Z87.891 Personal history of nicotine dependence; M21.371 Foot drop, right foot
CPT/HCPCS: 36569; 71010; 73060; 73070; 73080; 73130; 73552; 73610; 76937; 80048; 80053; 83036; 83735; 84100; 84439; 84443; 85007; 85025; 85027; 85652; 86140; 86403; 86644; 86645; 86664; 86665; 86703; 87015; 87040; 87070; 87077; 87102; 87116; 87186; 87205; 87206; 94667; 94668; 96374; J0131; J0692; J1580; J1642; J1650; J2270; J2405; J2543; J3370; J7030; J7040; J7050; J7120; Q0163

== ENCOUNTER 2017-04-27 19:26 | Inpatient (IN) | payer SELFPAY ==
[~2017-04-27] VITALS: Ht 193 cm; Wt 78.0 kg
[~2017-04-27 19:26] MED LIST changes: -BEDSIDE COMMODE1 MI1; -FAMO20TA2 PO; -FENT75T T-DERMAL; -HYDR-3129 PO; -LYRI75CA PO; -MAGN30S PO; -MELA5 PO; -METH500T3 PO; -PERC10TA27 PO; -PERI PO; -RIVA10 PO; -Z.0.COMMODE-3:1
[2017-04-27 19:28] VITALS: BP 132/81; PULSE 76; RESP 16; TEMP 98.7; O2SAT 96
[2017-04-27 20:36] LABS: BASOPHIL % 0.1 % (0.0-2.0); EOSINOPHIL % 2.8 % (0.0-4.0); HEMATOCRIT 32.4 % (39.0-51.0); LYMPH % 66.8 % (9.0-44.0); LYMPHOCYTE # 0.9 TH/MM3 (1.0-4.8); MEAN CELL VOLUME 83.3 FL (80.0-100.0); MEAN CORPUSCULAR HEMOGLOBIN 28.3 PG (27.0-34.0); MEAN CORPUSCULAR HGB CONC 33.9 % (32.0-36.0); MEAN PLATELET VOLUME 9.4 FL (7.0-11.0); MONO % 16.3 % (0.0-8.0); MONOCYTE # 0.2 TH/MM3 (0-0.9); PLATELET COUNT 140 TH/MM3 (150-450); RED BLOOD COUNT 3.89 MIL/MM3 (4.50-5.90); RED CELL DISTRIBUTION WIDTH 14.6 % (11.6-17.2); WHITE BLOOD COUNT 1.4 TH/MM3 (4.0-11.0)
[2017-04-27 20:48] LABS: AUTOMATED NEUTROPHIL # 0.2 TH/MM3 (1.8-7.7)
[2017-04-27 20:59] VITALS: RESP 18; O2SAT 100
[2017-04-27 20:59] LABS: ALBUMIN 3.5 GM/DL (3.4-5.0); BICARBONATE 27.8 MEQ/L (21.0-32.0); BLOOD UREA NITROGEN 7 MG/DL (7-18); CALCIUM 8.6 MG/DL (8.5-10.1); CHLORIDE 104 MEQ/L (98-107); SODIUM (NA) 139 MEQ/L (136-145)
[2017-04-27 21:00] LABS: AST (GOT) 20 U/L (15-37); CREATININE 0.51 MG/DL (0.60-1.30); GLOMERULAR FILTRATION RATE 194 ML/MIN (>89); GLUCOSE,RANDOM 85 MG/DL (74-106)
[2017-04-27 21:06] LABS: ALKALINE PHOSPHATASE 97 U/L (45-117); ALT (GPT) 13 U/L (12-78); TOTAL BILIRUBIN ADULT 0.3 MG/DL (0.2-1.0); TOTAL PROTEIN 7.8 GM/DL (6.4-8.2)
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
[2017-04-27 21:25] LABS: INTERNATIONAL NORMALIZED RATIO 1.1 RATIO; PROTHROMBIN TIME - PATIENT 11.5 SEC (9.8-11.6)
[2017-04-27] MEDS ORDERED: SODIUM CHLORIDE 0.9% FLUSH 10 ML FLUSH IV FLUSH PRN (21:45)
[2017-04-27] MEDS ORDERED: NALOXONE HCL 0.4 MG/ML AMP IV PUSH PRN (21:45)
[2017-04-27 22:00] LABS: BANDS 2 % (0-6); LYMPHOCYTES 69 % (9-44); METAMYELOCYTES 2 % (0-1); MONOCYTES 15 % (0-8); NEUTROPHIL # MANUAL DIFF 0.2 TH/MM3 (1.8-7.7); POLYS (SEG NEUTROPHILS) 10 % (16-70)
[2017-04-27 22:25] VITALS: BP 143/89; PULSE 71; RESP 20; TEMP 97.4; O2SAT 97
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
[2017-04-27] MEDS ORDERED: oxyCODONE/ACETAMINOPHEN 5 MG/325 MG TAB PO PRN (23:30)
[2017-04-28] MEDS: oxyCODONE/ACETAMINOPHEN 10 MG/325 MG TAB PO PRN ×3 (00:04→16:01)
[2017-04-28] MEDS: RIVAROXABAN 10 MG TAB PO SCH ×2 (02:49→11:41)
[2017-04-28] MEDS: MELATONIN 5 MG TAB PO SCH (02:49)
[2017-04-28 08:00] VITALS: BP 116/65; PULSE 69; RESP 16; TEMP 97; O2SAT 97
--- NOTE | 2017-04-28 09:11 | RADRPT ---
EXAM DATE/TIME: 04/28/2017 08:20 [place] COMPARISON: CHEST SINGLE AP, March 24, 2017, 14:27. INDICATIONS : PICC line placement. MEDICAL HISTORY : None. SURGICAL HISTORY : Multiple orthopedic surgeries. Pelvis reconstruction. IVC filter ENCOUNTER: Subsequent ACUITY: 2 months PAIN SCORE: 0/10 LOCATION: Bilateral chest FINDINGS: A single view of the chest demonstrates the lungs to be symmetrically aerated without evidence of mas s, infiltrate or effusion. The cardiomediastinal contours are unremarkable. Osseous structures are intact. CONCLUSION: Normal examination. PICC line remains placed with its tip possibly over the upper right atrium. Hardik Lucero MD on April 28, 2017 at 9:07 Board Certified Radiologist. This report was verified electronically.
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
[2017-04-28] MEDS: SODIUM CHLORIDE 0.9% FLUSH 10 ML FLUSH IV FLUSH SCH ×2 (11:41→20:34)
[2017-04-28 12:00] VITALS: BP 110/64; PULSE 66; RESP 16; TEMP 96.4; O2SAT 100
[2017-04-28] MEDS ORDERED: BACITRACIN TOP OINT 15 GM TUBE TOPICAL PRN (13:15)
[2017-04-28 13:21] LABS: HEMATOCRIT 32.8 % (39.0-51.0); HEMOGLOBIN 11.2 GM/DL (13.0-17.0); MEAN CELL VOLUME 83.5 FL (80.0-100.0); MEAN CORPUSCULAR HEMOGLOBIN 28.4 PG (27.0-34.0); MEAN CORPUSCULAR HGB CONC 34.1 % (32.0-36.0); MEAN PLATELET VOLUME 9.1 FL (7.0-11.0); PLATELET COUNT 141 TH/MM3 (150-450); RED BLOOD COUNT 3.93 MIL/MM3 (4.50-5.90); RED CELL DISTRIBUTION WIDTH 14.8 % (11.6-17.2); WHITE BLOOD COUNT 2.3 TH/MM3 (4.0-11.0)
--- NOTE | 2017-04-28 13:31 | PD.WCN.NOT ---
Wound Consult Description: Received consult from Yeni GALEANA for wound management of L elbow Communicated with: MALISSA Dos Santos and call placed to Doctor Stephen Raya for orders. Recommendation: Please cleanse wound with normal saline and apply Bacitracin to open dehisced wound and cover with single layer Xeroform just over wound bed and secure with dry 4x4 gauze, rolled gauze and elastic wrap. Change dressing daily. Additional Information: Patient seen on for evaluation of wound to L elbow surgical wound that dehisced.Surgical wound is noted to L elbow with scar tissue and open wound with exposed hardware. Open wound measures ~0.6cm x ~0.5cm x~0.2cm. Per patient orthopedic surgeon is Doctor Baird. Doctor Baird is aware of surgical wound dehiscence and has given orders. Per patient Doctor ordered bacitracin to be applied to wound bed and covered with Xeroform, followed by dry 4x4 gauze secured with rolled gauze and ALECIA wrap. Cleansed wound with normal saline and pat dry. Applied single layer Xeroform just over wound bed and covered with dry 4x4 gauze that was secured with rolled gauze and elastic wrap. Tonya Retana [facility] Apr 28, 2017 13:31
[2017-04-28 13:39] LABS: BICARBONATE 27.2 MEQ/L (21.0-32.0); CALCIUM 9.1 MG/DL (8.5-10.1); CREATININE 0.55 MG/DL (0.60-1.30)
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
[2017-04-28 14:33] LABS: BANDS 1 % (0-6); LYMPHOCYTES 74 % (9-44); MONOCYTES 15 % (0-8); POLYS (SEG NEUTROPHILS) 10 % (16-70)
[2017-04-28 14:36] LABS: NEUTROPHIL # MANUAL DIFF 0.3 TH/MM3 (1.8-7.7)
[2017-04-28 16:00] VITALS: BP 150/83; PULSE 82; RESP 17; TEMP 96.5; O2SAT 100
[2017-04-28] MEDS: LEVOFLOXACIN 750 MG TAB PO SCH (16:01)
[2017-04-28 20:00] VITALS: BP 131/66; PULSE 85; RESP 18; TEMP 96.4; O2SAT 96
[2017-04-29] VITALS: BP 106/54; PULSE 70; RESP 18; TEMP 98; O2SAT 97
[2017-04-29] MEDS: MELATONIN 5 MG TAB PO SCH ×2 (00:03→20:48)
[2017-04-29] MEDS: oxyCODONE/ACETAMINOPHEN 10 MG/325 MG TAB PO PRN ×3 (00:03→23:23)
[2017-04-29 08:00] VITALS: BP 105/55; PULSE 71; RESP 18; TEMP 97.7; O2SAT 97
[2017-04-29] MEDS: RIVAROXABAN 10 MG TAB PO SCH (08:24)
[2017-04-29] MEDS: LEVOFLOXACIN 750 MG TAB PO SCH (08:24)
[2017-04-29] MEDS: SODIUM CHLORIDE 0.9% FLUSH 10 ML FLUSH IV FLUSH SCH ×2 (08:25→20:48)
[2017-04-29 08:43] LABS: AUTOMATED NEUTROPHIL # 0.7 TH/MM3 (1.8-7.7); BASOPHIL % 0.4 % (0.0-2.0); EOSINOPHIL # 0.1 TH/MM3 (0-0.4); EOSINOPHIL % 2.2 % (0.0-4.0); HEMATOCRIT 30.2 % (39.0-51.0); HEMOGLOBIN 10.3 GM/DL (13.0-17.0); LYMPH % 53.3 % (9.0-44.0); LYMPHOCYTE # 1.3 TH/MM3 (1.0-4.8); MEAN CELL VOLUME 83.2 FL (80.0-100.0); MEAN CORPUSCULAR HEMOGLOBIN 28.3 PG (27.0-34.0); MEAN CORPUSCULAR HGB CONC 34.1 % (32.0-36.0); MEAN PLATELET VOLUME 9.1 FL (7.0-11.0); MONO % 15.3 % (0.0-8.0); MONOCYTE # 0.4 TH/MM3 (0-0.9); NEUT % 28.8 % (16.0-70.0); PLATELET COUNT 124 TH/MM3 (150-450); RED BLOOD COUNT 3.63 MIL/MM3 (4.50-5.90); RED CELL DISTRIBUTION WIDTH 14.5 % (11.6-17.2); WHITE BLOOD COUNT 2.4 TH/MM3 (4.0-11.0)
[2017-04-29 09:54] LABS: BANDS 6 % (0-6); LYMPHOCYTES 38 % (9-44); MONOCYTES 15 % (0-8); POLYS (SEG NEUTROPHILS) 36 % (16-70)
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
[2017-04-29 12:00] VITALS: BP 142/83; PULSE 77; RESP 16; TEMP 96.8; O2SAT 98
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
[2017-04-29 16:00] VITALS: BP 136/84; PULSE 71; RESP 18; TEMP 96.8; O2SAT 100
[2017-04-29 20:00] VITALS: BP 127/76; PULSE 78; RESP 16; TEMP 98.2; O2SAT 96
[2017-04-30] VITALS: BP 113/53; PULSE 75; RESP 18; TEMP 97.2; O2SAT 98
[2017-04-30 06:51] LABS: BASOPHIL % 0.3 % (0.0-2.0); EOSINOPHIL # 0.1 TH/MM3 (0-0.4); EOSINOPHIL % 2.5 % (0.0-4.0); HEMATOCRIT 30.7 % (39.0-51.0); HEMOGLOBIN 10.7 GM/DL (13.0-17.0); LYMPH % 52.2 % (9.0-44.0); LYMPHOCYTE # 1.9 TH/MM3 (1.0-4.8); MEAN CELL VOLUME 82.9 FL (80.0-100.0); MEAN CORPUSCULAR HGB CONC 34.9 % (32.0-36.0); MEAN PLATELET VOLUME 9.4 FL (7.0-11.0); MONO % 17.2 % (0.0-8.0); MONOCYTE # 0.6 TH/MM3 (0-0.9); NEUT % 27.8 % (16.0-70.0); PLATELET COUNT 152 TH/MM3 (150-450); RED BLOOD COUNT 3.71 MIL/MM3 (4.50-5.90); RED CELL DISTRIBUTION WIDTH 14.3 % (11.6-17.2); WHITE BLOOD COUNT 3.7 TH/MM3 (4.0-11.0)
[2017-04-30 07:12] LABS: BICARBONATE 28.9 MEQ/L (21.0-32.0); CALCIUM 8.7 MG/DL (8.5-10.1); CREATININE 0.48 MG/DL (0.60-1.30)
[2017-04-30 08:00] VITALS: BP 112/57; PULSE 85; RESP 16; TEMP 97.8; O2SAT 100
--- NOTE | 2017-04-30 08:42 | PD.ORT.PN ---
Subjective Subjective Remarks Patient awake and alert. He states his elbow feels stiff. Pain is improving. Objective Vitals Vital Signs Date Time Temp Pulse Resp B/P (MAP) Pulse Ox O2 Delivery O2 Flow Rate FiO2 04/30/17 00:00 97.2 75 18 113/53 (73) 98 04/29/17 20:00 98.2 78 16 127/76 (93) 96 04/29/17 16:00 96.8 71 18 136/84 (101) 100 04/29/17 12:00 96.8 77 16 142/83 (102) 98 I/O 04/29/17 04/29/17 04/29/17 04/30/17 04/30/17 04/30/17 07:00 15:00 23:00 07:00 15:00 23:00 Intake Total 480 ml 300 ml Output Total 500 ml 380 ml Balance -20 ml -80 ml Intake Oral 480 ml 300 ml Output Urine Total 500 ml 380 ml # Bowel Movements 0 Result Diagram: 04/30/1728 04/30/17627 Objective Remarks Left upper extremity: No pain to palpation of shoulder. Examination of the elbow reveals majority of the incision is completely healed. There is a portion of the incision approximately 5 mm that hardware is visible. It is clean with no cloudy discharge. Elbow range of motion is from 20 to 60. He has intact sensation over medial and ulnar nerve. 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 Distally he has intact sensation good capillary refills. Assessment & Plan Assessment and Plan I discussed treatment options with patient including surgical and nonsurgical options. Patient will eventually need hardware removed in order to get the wound to heal. Patient is in agreement to proceed with wound care until fracture is healed enough to remove plate. Daily dressing changes need to be bacitracin and Xeroform with 4 x 4's and Marco wrap over the elbow. Continue medical treatment and treatment by infectious disease Deven Baird MD Apr 30, 2017 08:42
[2017-04-30] MEDS: SODIUM CHLORIDE 0.9% FLUSH 10 ML FLUSH IV FLUSH SCH (08:48)
[2017-04-30] MEDS: LEVOFLOXACIN 750 MG TAB PO SCH (08:48)
[2017-04-30] MEDS: oxyCODONE/ACETAMINOPHEN 10 MG/325 MG TAB PO PRN (09:11)
[2017-04-30] MEDS ORDERED: LACTCHW3 CHEW (09:26)
[2017-04-30] MEDS ORDERED: LEVA500T33 PO (09:26)
[2017-04-30] MEDS ORDERED: LEVA750T9 PO (09:26)
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
== END 2017-04-30 11:58 | disposition home or self-care (01) | DRG 809 ==
LOC: NEPE 19:26 → NEDA 21:36 → N07B 22:12
PROVIDERS: ADMIT Hospitalist; ATTEND Hospitalist
DX: D70.2 Other drug-induced agranulocytosis (principal); T81.31XA Disruption of external operation (surgical) wound, not elsewhere classified, initial encounter; T36.1X5A Adverse effect of cephalosporins and other beta-lactam antibiotics, initial encounter; F41.9 Anxiety disorder, unspecified; F90.9 Attention-deficit hyperactivity disorder, unspecified type; R11.2 Nausea with vomiting, unspecified; Y83.8 Other surgical procedures as the cause of abnormal reaction of the patient, or of later complication, without mention of misadventure at the time of the procedure; Y92.9 Unspecified place or not applicable; Z87.891 Personal history of nicotine dependence; F12.90 Cannabis use, unspecified, uncomplicated; Z78.9 Other specified health status; Y92.009 Unspecified place in unspecified non-institutional (private) residence as the place of occurrence of the external cause; B96.89 Other specified bacterial agents as the cause of diseases classified elsewhere; G56.32 Lesion of radial nerve, left upper limb; M16.11 Unilateral primary osteoarthritis, right hip
CPT/HCPCS: 71045; 80048; 80053; 85007; 85025; 85027; 85610; 85730; 86403; 87070; 87205

== ENCOUNTER → 2017-06-29 | Day surgery (SDC) | payer SELFPAY ==
[~2017-06-29] VITALS: Ht 193 cm; Wt 78.3 kg
[~2017-06-29] MED LIST changes: +*MEPERIDINE 25 MG INJ VIAL PERIprocedural Use ONLY ONE; +*morphine SULFATE 10 MG/ML PERIprocedure ONLY ONE; +ACETAMINOPHEN/HYDROcodone 325 MG/10 MG TAB PO PRN; +BACT800T5 PO; +CHLORHEXIDINE GLUCONATE 2 % 1 PACK (2 CLOTHS) TOPICAL PRN; +CHLORHEXIDINE GLUCONATE 4% SOLN 120 ML BTL TOPICAL SCH; +DO NOT ADM ANY ANTICOAGULANT DRUGS PRN; +DOXY100C PO; +EPINEPHrine HCL (1:1000) 1 MG/ML VIAL IV ONE; +GENTAMICIN SULFATE 80 MG/2 ML VIAL ONE; +GLYCOPYRROLATE 1 MG/5 ML SYRINGE IV PUSH ONE; +HYDR-3583 PO; +LACTATED RINGER'S 1000 ML IV PRN; +LIDOCAINE HCL 1% PF 5 ML SYRINGE OTHER ONE; +METOPROLOL TARTRATE 25 MG TAB PO PRN; +MIDAZOLAM HCL 2 MG/2 ML VIAL ONE; +MORPHINE SULFATE 4 MG/ML INJ IV PUSH PRN; +NEOSTIGMINE 5 MG/5 ML SYRINGE IV PUSH ONE; +ONDANSETRON HCL 4 MG/2 ML VIAL IV ONE; +ONDANSETRON HCL 4 MG/2 ML VIAL IV PUSH PRN; -OXYC1TAB63 PO; +POVIDONE IODINE 5% (ANTISEPSIS KIT) 4 APPLICATIONS EACH NARE PRN; +PROPOFOL 200 MG/20 ML AMP IV ONE; +ROCURONIUM INJ 50 MG/5 ML SYRINGE IV PUSH ONE; +SODIUM CHLOR 0.9% 250 ML INJ 250 ML ONE; +SODIUM CHLORID 0.9% 500 ML IV PRN; +SODIUM CHLORIDE 0.9% FLUSH 10 ML FLUSH IV FLUSH PRN; +SODIUM CHLORIDE 0.9% FLUSH 10 ML FLUSH IV FLUSH SCH; +VANCOMYCIN HCL 1000 MG VIAL ONE; -WHEELCHAIR RENTAL RA; -WHEEMIS3; -XARE10TA PO; -Z.0.WHEELSTD; +ceFAZolin 2 GM PREMIX 50 ML ONE
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
[2017-06-29 12:00] VITALS: BP 118/82; PULSE 65; RESP 16; TEMP 97.8; O2SAT 96
--- NOTE | 2017-06-29 13:54 | RADRPT ---
EXAM DATE/TIME: 06/29/2017 10:17 [facility] COMPARISON: ELBOW LEFT LIMITED (AP & LAT), March 23, 2017, 10:18. INDICATIONS : Post op left elbow irrigation. MEDICAL HISTORY : None. SURGICAL HISTORY : Multiple orthopedic surgeries. Pelvis reconstruction. IVC filter ENCOUNTER: Subsequent ACUITY: 1 day PAIN SCORE: Non-responsive. LOCATION: Left Elbow. FINDINGS: Status post left elbow irrigation. There is good alignment of the bony structures. No joint dislocati on is seen. There are internal fixation devices involving the distal humerus. The previously noted in ternal fixation device at the olecranon process has been removed. CONCLUSION: Removal of the internal fixation device at the olecranon process. Scout Win MD on June 29, 2017 at 13:50 Board Certified Radiologist. This report was verified electronically.
== END | disposition home or self-care (01) ==
LOC: HSDC 05:57
PROVIDERS: ATTEND Orthopaedic Surgery Orthopaedic Trauma
DX: S42.402G Unspecified fracture of lower end of left humerus, subsequent encounter for fracture with delayed healing (principal); M25.622 Stiffness of left elbow, not elsewhere classified; V23.4XXD Motorcycle driver injured in collision with car, pick-up truck or van in traffic accident, subsequent encounter
CPT/HCPCS: 01630; 20680; 24300; 73070; 76000; 87015; 87070; 87102; 87116; 87176; 87205; 87206; J0171; J0690; J1580; J2175; J2250; J2270; J2405; J2710; J3010; J3370; J7050; J7120